=== PATIENT | female | born 2000 | race Caucasian/White ===

== ENCOUNTER 2021-07-16 09:30 | Emergency (ER) | payer OTHER, MEDICAID, SELFPAY ==
[2021-07-16] VITALS (8 sets, daily range): BP systolic 130–140; BP diastolic 76–88; PULSE 68–81; RESP 15–19; TEMP 36.4; O2SAT 100; BMI 19.5
--- NOTE | 2021-07-16 09:37 | ED_ITS ---
HPI - Nausea/Vomiting/Diarrhea General Chief complaint: Nausea/Vomiting/Diarrhea Stated complaint: vomiting, weakness x 3 days. found out Time Seen by Provider: 07/16/21 09:36 History of Present Illness HPI Narrative: 20-year-old female daily smoker without chronic medical problems presents with persistent nausea and vomiting and now some cramping abdominal pain since yesterday. She denies any new medications or dietary change. Her last period was about 1 month ago and yesterday she took a home test which was positive. She is a at possibly 4 weeks. She denies any vaginal bleeding, discharge or leakage of fluid. She denies any dysuria, frequency or urgency. She states that motion and vomiting seem to worsen her discomfort. The vomiting started prior to the discomfort. Related Data Previous Rx's Medication Instructions Recorded ondansetron 4 mg disintegrating 4 mg PO TID-QID PRN #20 tab 07/16/21 tablet prenat.vits,ronen,[id number] 1 tab PO DAILY #30 tab 07/16/21 Allergies Allergy/AdvReac Type Severity Reaction Status Date / Time amoxicillin Allergy Intermediate Verified 07/16/21 09:44 Penicillins Allergy Intermediate Verified 07/16/21 09:44 Review of Systems Review of Systems Narrative: GENERAL: See HPI HEENT: Denies sinus pain, ear pain, sore throat, difficulty swallowing, dizziness. RESPIRATORY: Denies dyspnea, cough, wheezing, hemoptysis, sputum. CARDIOVASCULAR: Denies chest pain, palpitations, orthopnea, edema, GASTROINTESTINAL: See HPI : Denies dysuria, frequency, incontinence, hematuria, urinary retention. MUSCULOSKELETAL: denies weakness, joint pain, or bony pain SKIN: Denies rash, skin lesions, or other NEUROLOGIC: Denies weakness, headache, numbness, change in speech, confusion, seizures, incoordination. PSYCHIATRIC: No concerning psychosocial issues. 12 point review of systems is negative except for those stated above Patient History Social History Smoking Status: Current every day smoker Smoking Status: Current every day smoker Exam Narrative Exam Narrative: GENERAL: [20 year old patient appears stated age. Well-developed patient, in mild distress. Holding an emesis bag HEAD: Atraumatic. Normocephalic. EYES: Pupils equal round and reactive. Extraocular motions intact. No scleral icterus. No injection or drainage. ENT: Nose without bleeding, purulent drainage. Throat without erythema, tonsillar hypertrophy or exudate. Airway patent. NECK: Trachea midline. Non tender CARDIOVASCULAR: Regular rate and rhythm without murmurs, gallops, or rubs. RESPIRATORY: Clear to auscultation. Breath sounds equal bilaterally. No wheezes, rales, or rhonchi. GASTROINTESTINAL: Abdomen soft, and generally tender, nondistended. Bowel sounds present EXTREMITIES: No edema or joint tenderness. BACK: Nontender without deformity or crepitance. No flank tenderness. NEURO: AOx3. SKIN: No rash or erythema of visible areas Initial Vital Signs Initial Vital Signs: Vital Signs Temperature 97.6 F 07/16/21 09:39 Pulse Rate 71 07/16/21 09:39 Respiratory Rate 15 07/16/21 09:39 Blood Pressure 140/88 07/16/21 09:39 Pulse Oximetry 100 07/16/21 09:39 Course Orders Ordered: ED Orders 07/16/21 10:15 Urine Microscopic Stat Discontinued Medications Sodium Chloride (Normal Saline 0.9%) 1,000 mls @ 1,000 mls/hr IV BOLUS ONE Stop: 07/16/21 10:42 Last Infusion: 07/16/21 11:52 Dose: 0 mls/hr Documented by: Admin: 07/16/21 10:30 Dose: 1,000 mls/hr Documented by: ANDERS Ondansetron HCl (Ondansetron 4 Mg/2 Ml Inj) 4 mg IV NOW ONE Stop: 07/16/21 09:44 Last Admin: 07/16/21 10:29 Dose: 4 mg Documented by: ANDERS Pantoprazole Sodium (Pantoprazole 40 Mg Vial) 40 mg IV NOW ONE Stop: 07/16/21 09:44 Last Admin: 07/16/21 10:27 Dose: 40 mg Documented by: ANDERS Vital Signs Vital signs: Vital Signs - 8 hr 07/16/21 11:30 07/16/21 11:44 Pulse Rate 81 Blood Pressure 130/85 Pulse Oximetry 100 MDM - Nausea/Vomiting/Diarrhea Lab Data Result diagrams: 07/16/21 10:07 07/16/21 10:07 Labs: Lab Results 07/16/21 07/16/21 07/16/21 Range/Units 10:07 10:07 10:15 WBC 18.9 H (4.5-11.0) X10^3/uL RBC 4.44 (4.0-5.2) X10^6/uL Hgb 13.5 (12.0-16.0) g/dL Hct 40.2 (36-46) % MCV 90.6 (80-100) fL MCH 30.4 (26-34) PG MCHC 33.6 (30-36) % RDW 13.0 (11.6-14.8) % Plt Count 449 H (150-400) X10^3/uL Neut % (Auto) 90.8 H (50-75) % Lymph % (Auto) 5.6 L (25-40) % [place] % (Auto) 3.2 (3-14) % Eos % (Auto) 0.1 L (2-4) % Baso % (Auto) 0.3 (0-2) % Neut # (Auto) 48862 H (1668-9725) /uL Lymph # (Auto) 1100 (0213-2151) /uL [place] # (Auto) 600 (0-900) /uL Eos # (Auto) 0 (0-450) /uL Baso # (Auto) 100 (0-100) /uL Sodium 135 L (137-145) mmol/L Potassium 3.7 (3.4-5.1) mmol/L Chloride 103 (98-107) mmol/L Carbon Dioxide 23 (22-32) mmol/L BUN 13 (7-17) mg/dL Creatinine 0.58 (0.52-1.04) mg/dL Estimated GFR > 60.0 (>60) mL/min BUN/Creatinine Ratio 22.4 H (6-22) Glucose 125 H (70-100) mg/dL Calcium 10.1 (8.4-10.2) mg/dL Magnesium 1.7 (1.6-2.3) mg/dL Total Bilirubin 1.1 (0.2-1.3) mg/dL AST 29 (14-36) IU/L ALT 17 (<35) IU/L Alkaline Phosphatase 75 (38-126) U/L Total Protein 8.1 (6.3-8.2) g/dL Albumin 5.1 H (3.5-5.0) g/dL Globulin 3.0 (1.7-4.1) g/dL Albumin/Globulin Ratio 1.7 (1.0-2.8) HCG, Quant 47.7 mIU/mL Urine RBC None seen (0-5/HPF) Urine WBC None seen (0-5/HPF) Amorphous Sediment 3+ Urine Bacteria None seen (None) Ur Culture Indicated? Cult not indicated Ketones 0.36 H (<0.27) mmol/L Point of Care Testing Test Results Positive Urine Dip Bedside Urine Glucose Negative Bedside Urine Bilirubin ++ 2 Bedside Urine Ketone - Negative Urine Specific [place] 1.01 Bedside Urine Occult Blood - Negative Bedside Urine pH 9.0 Bedside Urine Protein + 30 Bedside Urine Urobilinogen - Negative Bedside Urine Nitrite - Negative Bedside Urine Leukocytes - Negative Esterase MDM Narrative Medical decision making narrative: Patient with nausea, vomiting and abdominal pain that started yesterday. She is newly diagnosed as and had similar symptoms during her prior . Her abdomen is soft and nontender. Discomfort started after vomiting. She has a complete resolution of symptoms after above-stated therapies. Elevated white blood cells likely a stress response from vomiting. Urine is clear no need for antibiotics. Her vomiting is under control, pain has disappeared and she is tolerating orals. Return precautions given and questions answered to her apparent satisfaction Discharge Plan Departure Patient Disposition: Home Clinical Impression: Hyperemesis gravidarum Instructions: DI for Hyperemesis Gravidarum Activity Restrictions/Additional Instructions: *You have been diagnosed with [hyperemesis gravidarum. Your history and physical exam are very reassuring as is your response to hydration and medications *What to do: *Please continue to take your regular medications as directed. [x ] New medication prescriptions sent to your pharmacy: [[facility] ] [ ] New medication written as a paper prescription [ ] No new medications given *Please follow up with your primary care provider in 2-3 days, call for an appointment. Let them know you were seen in the Emergency Department and that we ask that you be seen in follow up. We will electronically transmit a record of today's note if your PCP is in our system *If you do not have a primary care provider please contact the [facility] Resource line at [phone]. They will ask some questions about your medical history and help get you set up with a doctor in the community. *Return to Emergency Department if you should have any new, worsening or concerning symptoms, such as [fever greater than 101 F, shaking chills, worsening pain, persistent vomiting or other bothersome symptoms] Prescriptions: New ondansetron 4 mg tablet,disintegrating 4 mg PO TID-QID PRN (Reason: nausea and vomiting) Qty: 20 0RF prenat.vits,ronen,[id number] Tablet 1 tab PO DAILY Qty: 30 0RF Referrals: Dar Salomon MD [Primary Care Provider] -
[2021-07-16 10:18] LABS: Add Manual Diff / Slide Review NO; Basophils Absolute Auto 100 /uL (0-100); Basophils Percent Auto 0.3 % (0-2); Eosinophils Absolute Auto 0 /uL (0-450); Eosinophils Percent Auto 0.1 % (2-4); Hematocrit 40.2 % (36-46); Hemoglobin 13.5 g/dL (12.0-16.0); Lymphocytes Absolute Auto 1100 /uL (1100-4500); Lymphocytes Percent Auto 5.6 % (25-40); Mean Corpuscular HGB Conc 33.6 % (30-36); Mean Corpuscular Hemoglobin 30.4 PG (26-34); Mean Corpuscular Volume 90.6 fL (80-100); Monocytes Absolute Auto 600 /uL (0-900); Monocytes Percent Auto 3.2 % (3-14); Neutrophils Absolute Auto 17200 /uL (1500-7000); Neutrophils Percent Auto 90.8 % (50-75); Platelet Count 449 X10^3/uL (150-400); Red Blood Cell Count 4.44 X10^6/uL (4.0-5.2); White Blood Cell Count 18.9 X10^3/uL (4.5-11.0)
[2021-07-16] MEDS: PANTOPRAZOLE 40 MG VIAL IV (10:27)
[2021-07-16] MEDS: ONDANSETRON 4 MG/2 ML INJ IV (10:29)
[2021-07-16 10:30] LABS: Alanine Aminotransferase 17 IU/L (<35); Albumin 5.1 g/dL (3.5-5.0); Albumin Globulin Ratio 1.7 (1.0-2.8); Alkaline Phosphatase 75 U/L (38-126); Aspartate Aminotransferase 29 IU/L (14-36); BUN Creatinine Ratio 22.4 (6-22); Bilirubin Total 1.1 mg/dL (0.2-1.3); Blood Urea Nitrogen 13 mg/dL (7-17); Calcium 10.1 mg/dL (8.4-10.2); Carbon Dioxide 23 mmol/L (22-32); Chloride 103 mmol/L (98-107); Estimated Glomerular Filt Rate > 60.0 mL/min (>60); Glucose 125 mg/dL (70-100); HEMOLYSIS < 15 (0-50); Magnesium 1.7 mg/dL (1.6-2.3); Potassium 3.7 mmol/L (3.4-5.1); Sodium 135 mmol/L (137-145); Total Protein 8.1 g/dL (6.3-8.2)
[2021-07-16] MEDS: SODIUM CHLORIDE 0.9% 1,000 ML 1000 ML IV (10:30)
[2021-07-16 10:32] LABS: Ketones (Beta-Hydroxybutyrate) 0.36 mmol/L (<0.27)
[2021-07-16 10:51] LABS: Amorphous Sediment Urine 3+; Bacteria Urine None Seen; Culture Indicated Urine Cult Not Indicated; RBC Urine None Seen (0-5/HPF); WBC Urine None Seen (0-5/HPF)
[2021-07-16 11:30] LABS: HCG Quantitative /Beta subunit 47.7 mIU/mL
== END 2021-07-16 11:58 | disposition home or self-care (01) ==
PROVIDERS: Emergency Provider Emergency Medicine; PCP Family Medicine
DX: O21.0 Mild hyperemesis gravidarum (principal); O99.331 Smoking (tobacco) complicating pregnancy, first trimester; F17.200 Nicotine dependence, unspecified, uncomplicated; Z3A.00 Weeks of gestation of pregnancy not specified
CPT/HCPCS: 36415; 80053; 81003; 81015; 81025; 82009; 83735; 84702; 85025; 96361; 96374; 96375; 99284; C9113; J2405

== ENCOUNTER 2021-07-18 10:53 | Emergency (ER) | payer OTHER, MEDICAID, SELFPAY ==
[2021-07-18 11:07] VITALS: BP 134/95; PULSE 78; RESP 16; TEMP 36.4; O2SAT 98; BMI 18.3
[2021-07-18] MEDS: ONDANSETRON 4 MG/2 ML INJ IV (11:41)
[2021-07-18] MEDS: SODIUM CHLORIDE 0.9% 1,000 ML 1000 ML IV (11:42)
[2021-07-18 11:46] LABS: Add Manual Diff / Slide Review NO; Basophils Absolute Auto 0 /uL (0-100); Basophils Percent Auto 0.3 % (0-2); Eosinophils Absolute Auto 0 /uL (0-450); Eosinophils Percent Auto 0.1 % (2-4); Hematocrit 37.6 % (36-46); Hemoglobin 12.9 g/dL (12.0-16.0); Lymphocytes Absolute Auto 1000 /uL (1100-4500); Lymphocytes Percent Auto 7.1 % (25-40); Mean Corpuscular HGB Conc 34.2 % (30-36); Mean Corpuscular Hemoglobin 31.1 PG (26-34); Mean Corpuscular Volume 90.9 fL (80-100); Monocytes Absolute Auto 700 /uL (0-900); Monocytes Percent Auto 4.8 % (3-14); Neutrophils Absolute Auto 12800 /uL (1500-7000); Neutrophils Percent Auto 87.7 % (50-75); Platelet Count 426 X10^3/uL (150-400); Red Blood Cell Count 4.14 X10^6/uL (4.0-5.2); Red Cell Distribution Width 13.2 % (11.6-14.8); White Blood Cell Count 14.6 X10^3/uL (4.5-11.0)
[2021-07-18 11:52] LABS: Amorphous Sediment Urine 3+; Bacteria Urine None Seen; Culture Indicated Urine Cult Not Indicated; RBC Urine None Seen (0-5/HPF); Squamous Epithelial Cell Urine 1-5 /HPF (0-5/HPF); WBC Urine None Seen (0-5/HPF)
[2021-07-18 12:02] LABS: BUN Creatinine Ratio 16.4 (6-22); Blood Urea Nitrogen 9 mg/dL (7-17); Calcium 9.3 mg/dL (8.4-10.2); Carbon Dioxide 23 mmol/L (22-32); Chloride 105 mmol/L (98-107); Estimated Glomerular Filt Rate > 60.0 mL/min (>60); Glucose 107 mg/dL (70-100); HEMOLYSIS < 15 (0-50); Potassium 3.5 mmol/L (3.4-5.1); Sodium 135 mmol/L (137-145)
--- NOTE | 2021-07-18 12:18 | DI.US.S_ITS ---
PROCEDURE: US ABDOMEN LIMITED INDICATIONS: RUQ AND RLQ PAIN TECHNIQUE: Real-time focused scanning was performed of the abdomen, with image documentation. COMPARISON: None. FINDINGS: Liver is normal in size and homogeneous echotexture. Gallbladder is sonographically normal. No gallstones. Gallbladder wall measures 1.1 millimeters. No pericholecystic fluid. No sonographic Rutherford sign. Biliary tree is nondilated. Common bile duct measures 1.5 millimeters. Pancreas is sonographically normal. Appendix is not visualized and cannot be evaluated. IMPRESSION: 1. No sonographic evidence of cholelithiasis or cholecystitis. 2. Appendix not visualized and cannot be evaluated. Dictated by: Cheli Moraes MD, PhD on 07/18/2021 at 12:54 Approved by: Cheli Moraes MD, PhD on 07/18/2021 at 12:56
[2021-07-18] MEDS: METOCLOPRAMIDE 10 MG/2 ML INJ IV (12:29)
--- NOTE | 2021-07-18 12:34 | PC.NURSE ---
LMP 06/16/21, hyperemesis since finding out. Has been vomiting for last 10hrs, unable to keep anything down. Third and had similar situations with other .
--- NOTE | 2021-07-18 12:36 | ED_ITS ---
HPI - Nausea/Vomiting/Diarrhea <Gray Evans PA-C - Last Filed: 07/18/21 20:04> General Chief complaint: Nausea/Vomiting/Diarrhea Stated complaint: HG , CONSTANT VOMITING Time Seen by Provider: 07/18/21 12:00 Source: patient Mode of arrival: Ambulatory History of Present Illness HPI Narrative: Patient is a 20-year-old female presenting to the emergency department today for evaluation of nausea and vomiting. Patient states that she is experienced ?nonstop vomiting? for the last 6 hours. She states she has been experiencing intermittent episodes of nausea and vomiting over the past week, but she notes that she has experienced increased lightheadedness and dizziness with her current episodes of emesis. She reports associated chest pain, abdominal pain, shortness of breath, cough, and chills. Patient was seen in the emergency department on to 02/06/22 for similar symptom and was discharged home following resolution of her nausea and vomiting. He was administered IV normal saline, 4 mg of Zofran, and 40 mg Protonix. Patient denies fever, constipation, diarrhea, hematemesis, hematochezia, dysuria, hematuria, vaginal bleeding, or any other concerning symptoms. No further concerns were voiced at this time. Related Data Previous Rx's Medication Instructions Recorded ondansetron 4 mg disintegrating 4 mg PO TID-QID PRN #20 tab 07/16/21 tablet prenat.vits,ronen,[id number] 1 tab PO DAILY #30 tab 07/16/21 metoclopramide HCl 10 mg tablet 10 mg PO Q6H PRN #30 tab 07/18/21 (Reglan) Allergies Allergy/AdvReac Type Severity Reaction Status Date / Time amoxicillin Allergy Intermediate Verified 07/18/21 11:10 Penicillins Allergy Intermediate Verified 07/18/21 11:10 Review of Systems <Gray Evans PA-C - Last Filed: 07/18/21 20:04> Constitutional Constitutional: Denies chills, Denies fatigue, Denies fever(s), Denies frequent falls, Denies lethargy and Denies weakness Eyes Eyes: Denies loss of vision ENT Ears, Nose, Mouth, and Throat: Reports dizziness and Denies neck pain Cardiovascular Cardiovascular: Reports chest pain, Denies irregular heart rhythm, Denies lightheadedness, Denies palpitations, Reports dyspnea, Denies dyspnea on exertion and Denies orthopnea Respiratory Respiratory: Reports cough, Reports dyspnea, Denies dyspnea on exertion and Denies wheezing Gastrointestinal Gastrointestinal: Reports abdominal pain, Denies change in bowel habits, Denies constipation, Denies diarrhea, Reports nausea, Reports vomiting and Denies hematemesis Genitourinary Genitourinary: Denies hematuria, Denies flank pain, Denies urinary incontinence and Denies urinary urgency Musculoskeletal Musculoskeletal: Denies back pain, Denies muscle weakness, Denies neck pain, Denies numbness and Denies tingling Integumentary/Breasts Skin/Breast: Denies pruritus, Denies erythema, Denies rash and Denies wounds Neurologic Neurologic: Denies behavioral changes, Denies confusion, Reports dizziness, Denies frequent falls, Denies loss of vision, Denies numbness, Denies tingling and Denies weakness Psychiatric Psychiatric: Denies behavioral changes and Denies confusion Endocrine Endocrine: Denies fatigue and Denies palpitations Allergic/Immunologic Allergic/Immunologic: Denies wheezing Patient History <Gray Evans PA-C - Last Filed: 07/18/21 20:04> Social History Smoking Status: Former smoker Smoking Status: Former smoker alcohol intake frequency: holidays/special occasions only Substance Use Type: marijuana Exam <Gray Evans PA-C - Last Filed: 07/18/21 20:04> Narrative Exam Narrative: GENERAL: 20 year old patient appears stated age. Well-developed patient, in mild distress. Active chills and trembling on exam. HEAD: Atraumatic. Normocephalic. EYES: Pupils equal round and reactive. Extraocular motions intact. No scleral icterus. No injection or drainage. ENT: Nose without bleeding, purulent drainage. Throat without erythema, tonsillar hypertrophy or exudate. Airway patent. NECK: Trachea midline. Non tender CARDIOVASCULAR: Regular rate and rhythm without murmurs, gallops, or rubs. RESPIRATORY: Clear to auscultation. Breath sounds equal bilaterally. No wheezes, rales, or rhonchi. GASTROINTESTINAL: Abdomen soft, nondistended. Tenderness to palpation noted throughout all 4 quadrants of the abdomen. No pulsatile masses noted. EXTREMITIES: No edema or joint tenderness. BACK: Nontender without deformity or crepitance. No flank tenderness. NEURO: AOx3. SKIN: No rash or erythema of visible areas Initial Vital Signs Initial Vital Signs: Vital Signs Temperature 97.6 F 07/18/21 11:07 Pulse Rate 78 07/18/21 11:07 Respiratory Rate 16 07/18/21 11:07 Blood Pressure 134/95 H 07/18/21 11:07 Pulse Oximetry 98 07/18/21 11:07 <Shaye Garcia DO - Last Filed: 07/19/21 07:00> Initial Vital Signs Initial Vital Signs: Vital Signs Temperature 97.6 F 07/18/21 11:07 Pulse Rate 78 07/18/21 11:07 Respiratory Rate 16 07/18/21 11:07 Blood Pressure 134/95 H 07/18/21 11:07 Pulse Oximetry 98 07/18/21 11:07 Course <Gray Evans PA-C - Last Filed: 07/18/21 20:04> Course Course Narrative: CBC, CMP, urine micro, abdominal ultrasound obtained. IV normal saline bolus 1000 mL, IV 4 mg Zofran, IV 10 mg Reglan administered. Patient states that she is feeling much better after IV fluids, Zofran, and Reglan. She is requesting be discharged from the hospital. Orders Ordered: Discontinued Medications Sodium Chloride (Normal Saline 0.9%) 1,000 mls @ 1,000 mls/hr IV BOLUS ONE Stop: 07/18/21 12:12 Last Infusion: 07/18/21 12:35 Dose: 0 mls/hr Documented by: Admin: 07/18/21 11:42 Dose: 1,000 mls/hr Documented by: SEGUN Metoclopramide HCl (Metoclopramide 10 Mg/2 Ml Inj) 10 mg IV NOW ONE Stop: 07/18/21 12:17 Last Admin: 07/18/21 12:29 Dose: 10 mg Documented by: SEGUN Ondansetron HCl (Ondansetron 4 Mg/2 Ml Inj) 4 mg IV NOW ONE Stop: 07/18/21 11:13 Last Admin: 07/18/21 11:41 Dose: 4 mg Documented by: SEGUN Vital Signs Vital signs: Vital Signs - 8 hr 07/18/21 13:19 Pulse Rate 73 Respiratory Rate 18 Blood Pressure 134/80 Pulse Oximetry 100 <Shaye Garcia DO - Last Filed: 07/19/21 07:00> Orders Ordered: Discontinued Medications Sodium Chloride (Normal Saline 0.9%) 1,000 mls @ 1,000 mls/hr IV BOLUS ONE Stop: 07/18/21 12:12 Last Infusion: 07/18/21 12:35 Dose: 0 mls/hr Documented by: Admin: 07/18/21 11:42 Dose: 1,000 mls/hr Documented by: SEGUN Metoclopramide HCl (Metoclopramide 10 Mg/2 Ml Inj) 10 mg IV NOW ONE Stop: 07/18/21 12:17 Last Admin: 07/18/21 12:29 Dose: 10 mg Documented by: SEGUN Ondansetron HCl (Ondansetron 4 Mg/2 Ml Inj) 4 mg IV NOW ONE Stop: 07/18/21 11:13 Last Admin: 07/18/21 11:41 Dose: 4 mg Documented by: SEGUN Vital Signs Vital signs: Vital Signs - 8 hr 07/18/21 13:19 Pulse Rate 73 Respiratory Rate 18 Blood Pressure 134/80 Pulse Oximetry 100 MDM - Nausea/Vomiting/Diarrhea <Gray Evans PA-C - Last Filed: 07/18/21 20:04> Lab Data Result diagrams: 07/18/21 11:36 07/18/21 11:36 Labs: Lab Results 07/18/21 07/18/21 07/18/21 Range/Units 11:36 11:36 11:36 WBC 14.6 H (4.5-11.0) X10^3/uL RBC 4.14 (4.0-5.2) X10^6/uL Hgb 12.9 (12.0-16.0) g/dL Hct 37.6 (36-46) % MCV 90.9 (80-100) fL MCH 31.1 (26-34) PG MCHC 34.2 (30-36) % RDW 13.2 (11.6-14.8) % Plt Count 426 H (150-400) X10^3/uL Neut % (Auto) 87.7 H (50-75) % Lymph % (Auto) 7.1 L (25-40) % [place] % (Auto) 4.8 (3-14) % Eos % (Auto) 0.1 L (2-4) % Baso % (Auto) 0.3 (0-2) % Neut # (Auto) 72672 H (6159-0068) /uL Lymph # (Auto) 1000 L (1954-0550) /uL [place] # (Auto) 700 (0-900) /uL Eos # (Auto) 0 (0-450) /uL Baso # (Auto) 0 (0-100) /uL Sodium 135 L (137-145) mmol/L Potassium 3.5 (3.4-5.1) mmol/L Chloride 105 (98-107) mmol/L Carbon Dioxide 23 (22-32) mmol/L BUN 9 (7-17) mg/dL Creatinine 0.55 (0.52-1.04) mg/dL Estimated GFR > 60.0 (>60) mL/min BUN/Creatinine Ratio 16.4 (6-22) Glucose 107 H (70-100) mg/dL Calcium 9.3 (8.4-10.2) mg/dL Urine RBC None seen (0-5/HPF) Urine WBC None seen (0-5/HPF) Ur Squamous Epith Cells 1-5 /hpf (0-5/HPF) Amorphous Sediment 3+ Urine Bacteria None seen (None) Ur Culture Indicated? Cult not indicated Point of Care Testing Test Results Positive Urine Dip Bedside Urine Glucose Negative Bedside Urine Bilirubin - Negative Bedside Urine Ketone +++ 80 Urine Specific [place] 1.015 Bedside Urine Occult Blood - Negative Bedside Urine pH 7.5 Bedside Urine Protein +/- 15 Bedside Urine Urobilinogen - Negative Bedside Urine Nitrite - Negative Bedside Urine Leukocytes - Negative Esterase Imaging Data US - abdomen: Radiologist's Impression: PROCEDURE: US ABDOMEN LIMITED ? INDICATIONS:? RUQ AND RLQ PAIN ? TECHNIQUE:? Real-time focused scanning was performed of the abdomen, with image documentation.? ? COMPARISON:? None. ? FINDINGS:? ? Liver is normal in size and homogeneous echotexture. ? Gallbladder is sonographically normal.? No gallstones.? Gallbladder wall measures 1.1 millimeters.? No pericholecystic fluid.? No sonographic Rutherford sign. ? Biliary tree is nondilated.? Common bile duct measures 1.5 millimeters. ? Pancreas is sonographically normal. ? Appendix is not visualized and cannot be evaluated. ? IMPRESSION:? ? 1. No sonographic evidence of cholelithiasis or cholecystitis. ? 2. Appendix not visualized and cannot be evaluated.? ? ? Dictated by: Cheli Moraes MD, PhD on 07/18/2021 at 12:54 ? ? Approved by: Cheli Moraes MD, PhD on 07/18/2021 at 12:56 ? MDM Narrative Medical decision making narrative: To consider hyperemesis gravidarum versus cholelithiasis versus choledocholithiasis versus acute cholangitis versus cholecystitis versus appendicitis. Overall, physical examination and history are reassuring. Discussed results of abdominal ultrasound patient informed her that no acute abnormality was identified. Psoas sign, obturator's sign both negative on exam. Patient did not have any rebound tenderness in McBurney's point. Patient states at this time she feels comfortable being discharged home. Strict return precautions were discussed with the patient prior to discharge. At this time patient is stable and ready for discharge. <Shaye Garcia, DO - Last Filed: 07/19/21 07:00> Lab Data Labs: Lab Results 07/18/21 07/18/21 07/18/21 Range/Units 11:36 11:36 11:36 WBC 14.6 H (4.5-11.0) X10^3/uL RBC 4.14 (4.0-5.2) X10^6/uL Hgb 12.9 (12.0-16.0) g/dL Hct 37.6 (36-46) % MCV 90.9 (80-100) fL MCH 31.1 (26-34) PG MCHC 34.2 (30-36) % RDW 13.2 (11.6-14.8) % Plt Count 426 H (150-400) X10^3/uL Neut % (Auto) 87.7 H (50-75) % Lymph % (Auto) 7.1 L (25-40) % [place] % (Auto) 4.8 (3-14) % Eos % (Auto) 0.1 L (2-4) % Baso % (Auto) 0.3 (0-2) % Neut # (Auto) 88700 H (4616-5788) /uL Lymph # (Auto) 1000 L (4503-2470) /uL [place] # (Auto) 700 (0-900) /uL Eos # (Auto) 0 (0-450) /uL Baso # (Auto) 0 (0-100) /uL Sodium 135 L (137-145) mmol/L Potassium 3.5 (3.4-5.1) mmol/L Chloride 105 (98-107) mmol/L Carbon Dioxide 23 (22-32) mmol/L BUN 9 (7-17) mg/dL Creatinine 0.55 (0.52-1.04) mg/dL Estimated GFR > 60.0 (>60) mL/min BUN/Creatinine Ratio 16.4 (6-22) Glucose 107 H (70-100) mg/dL Calcium 9.3 (8.4-10.2) mg/dL Urine RBC None seen (0-5/HPF) Urine WBC None seen (0-5/HPF) Ur Squamous Epith Cells 1-5 /hpf (0-5/HPF) Amorphous Sediment 3+ Urine Bacteria None seen (None) Ur Culture Indicated? Cult not indicated Point of Care Testing Test Results Positive Urine Dip Bedside Urine Glucose Negative Bedside Urine Bilirubin - Negative Bedside Urine Ketone +++ 80 Urine Specific [place] 1.015 Bedside Urine Occult Blood - Negative Bedside Urine pH 7.5 Bedside Urine Protein +/- 15 Bedside Urine Urobilinogen - Negative Bedside Urine Nitrite - Negative Bedside Urine Leukocytes - Negative Esterase Discharge Plan Departure Patient Disposition: Home Clinical Impression: Hyperemesis gravidarum Instructions: DI for Hyperemesis Gravidarum Activity Restrictions/Additional Instructions: *You have been diagnosed with hyperemesis gravidarum *What to do: *Please continue to take your regular medications as directed. [X] New medication prescriptions sent to your pharmacy: [facility] - Reglan [ ] New medication written as a paper prescription [ ] No new medications given Physical examination and ultrasound imaging obtained in the emergency department day were overall reassuring. Although your appendix was not visualized on ultrasound imaging the physical examination did not show any signs of appendicitis. I have prescribed you a course of Reglan to help alleviate your nausea and vomiting. This medication can be taken with Zofran as needed for nausea. I recommend following up with the primary care provider within the next 2-3 days for further evaluation. Do not hesitate to return to the emergency department if you experience worsening abdominal pain, intractable vomiting, fever, or any other concerning symptoms. *Please follow up with your primary care provider in 2-3 days, call for an appointment. Let them know you were seen in the Emergency Department and that we ask that you be seen in follow up. We will electronically transmit a record of today's note if your PCP is in our system *If you do not have a primary care provider please contact the [facility] Resource line at [phone]. They will ask some questions about your medical history and help get you set up with a doctor in the community. *Return to Emergency Department if you should have any new, worsening or concerning symptoms, such as fever greater than 101 F, shaking chills, worsening pain, persistent vomiting or other bothersome symptoms. Prescriptions: New metoclopramide HCl [Reglan] 10 mg tablet 10 mg PO Q6H PRN (Reason: nausea and vomiting) Qty: 30 0RF No Action ondansetron 4 mg tablet,disintegrating 4 mg PO TID-QID PRN (Reason: nausea and vomiting) Qty: 20 0RF prenat.vits,ronen,[id number] Tablet 1 tab PO DAILY Qty: 30 0RF Referrals: Dar Salomon MD [Primary Care Provider] - <Shaye Garcia DO - Last Filed: 07/19/21 07:00> Cosign ED Attending Óscarature Attestation: I was immediately available in the department for consultation. Documentation has been reviewed. I agree with assessment and plan.
[2021-07-18 13:19] VITALS: BP 134/80; PULSE 73; RESP 18; O2SAT 100
== END 2021-07-18 13:22 | disposition home or self-care (01) ==
PROVIDERS: Emergency Medicine; Emergency Provider Physician Assistant; PCP Family Medicine
DX: O21.0 Mild hyperemesis gravidarum (principal)
CPT/HCPCS: 36415; 76705; 80048; 81003; 81015; 81025; 85025; 96361; 96374; 96375; 99284; J2405; J2765

== ENCOUNTER 2021-08-15 16:43 | Emergency (ER) | payer OTHER, MEDICAID, SELFPAY ==
[2021-08-15 17:20] VITALS: BP 111/59; PULSE 73; RESP 17; TEMP 36.6; O2SAT 100; BMI 17.2
--- NOTE | 2021-08-15 17:24 | DI.US.S_ITS ---
PROCEDURE: US OB <= 14 WEEKS FETUS INDICATIONS: , BLEEDING OUTSIDE/PRIOR DATING DATA: Last menstrual period (LMP): June 16, 2021 LMP-based estimated date of delivery (BERNARDA): March 23, 2022. First dating scan (date and location): August 15, 2021. Estimated date of delivery (BERNARDA) from first dating scan: March 25, 2022. TECHNIQUE: Real-time scanning was performed of the fetus and maternal pelvic organs, with image documentation. Endovaginal scanning was also performed to better visualize the fetus and maternal ovaries. COMPARISON: None. FINDINGS: Embryo: There is a single living intrauterine gestation with estimated sonographic gestational age of approximately 8 weeks and 2 days based off crown-rump length measurement of 1.8 cm. A yolk sac is seen. There is a prominent heterogeneous area measuring 3.1 x 2.2 x 2.8 cm with more peripheral anechoic region measuring 0.9 cm visualized near the right uterus. Heart rate: 169 beats per minute Maternal organs: Ovaries unremarkable with probable left corpus luteal cyst.. IMPRESSION: 1. Single living intrauterine gestation with estimated sonographic gestational age of approximately 8 weeks and 2 days based off crown-rump length measurement. Estimated dated delivery is approximately March 25, 2022. 2. Prominent heterogeneous collection measuring 3.1 x 2.2 x 2.8 cm with adjacent anechoic region measuring 0.9 cm near the right side of the uterus. This may represent a prominent perigestational hemorrhage. Recommend continued close clinical surveillance with repeat imaging as needed. We strive to produce accurate, complete, and clear reports of imaging services. To assist us in improving patient care, this report was composed using standard report templates and voice recognition software. Therefore, it may contain abnormal punctuation, insertions and/or omissions. Occasional wrong-word or sound-alike substitutions may occur. Though we review the report and make efforts to correct it, we do recommend that the report be read carefully in proper context to recognize any text inaccuracies. Dictated by: Glen Noguera M.D. on 08/15/2021 at 19:11 Approved by: Glen Noguera M.D. on 08/15/2021 at 19:16
[2021-08-15 17:45] LABS: Add Manual Diff / Slide Review NO; Basophils Absolute Auto 100 /uL (0-100); Basophils Percent Auto 0.4 % (0-2); Eosinophils Absolute Auto 200 /uL (0-450); Eosinophils Percent Auto 0.8 % (2-4); Hematocrit 34.5 % (36-46); Hemoglobin 11.8 g/dL (12.0-16.0); Lymphocytes Absolute Auto 2000 /uL (1100-4500); Lymphocytes Percent Auto 9.4 % (25-40); Mean Corpuscular HGB Conc 34.2 % (30-36); Mean Corpuscular Hemoglobin 31.2 PG (26-34); Mean Corpuscular Volume 91.2 fL (80-100); Monocytes Absolute Auto 1200 /uL (0-900); Monocytes Percent Auto 5.9 % (3-14); Neutrophils Absolute Auto 17700 /uL (1500-7000); Neutrophils Percent Auto 83.5 % (50-75); Platelet Count 437 X10^3/uL (150-400); Red Blood Cell Count 3.78 X10^6/uL (4.0-5.2); Red Cell Distribution Width 13.3 % (11.6-14.8); White Blood Cell Count 21.1 X10^3/uL (4.5-11.0)
[2021-08-15 17:56] LABS: Alanine Aminotransferase 12 IU/L (<35); Albumin 4.6 g/dL (3.5-5.0); Albumin Globulin Ratio 1.6 (1.0-2.8); Alkaline Phosphatase 54 U/L (38-126); Aspartate Aminotransferase 22 IU/L (14-36); BUN Creatinine Ratio 19.5 (6-22); Bilirubin Total 0.5 mg/dL (0.2-1.3); Blood Urea Nitrogen 8 mg/dL (7-17); Calcium 8.9 mg/dL (8.4-10.2); Carbon Dioxide 25 mmol/L (22-32); Chloride 105 mmol/L (98-107); Estimated Glomerular Filt Rate > 60.0 mL/min (>60); Globulin 2.9 g/dL (1.7-4.1); Glucose 84 mg/dL (70-100); HEMOLYSIS < 15 (0-50); Potassium 3.6 mmol/L (3.4-5.1); Sodium 134 mmol/L (137-145); Total Protein 7.5 g/dL (6.3-8.2)
[2021-08-15 18:20] LABS: Amorphous Sediment Urine 1+; Bacteria Urine None Seen; RBC Urine None Seen (0-5/HPF); Squamous Epithelial Cell Urine 5-10 /HPF (0-5/HPF); WBC Urine None Seen (0-5/HPF)
[2021-08-15 18:36] LABS: HCG Quantitative /Beta subunit 110000 mIU/mL
--- NOTE | 2021-08-15 19:28 | ED.PREGNANCY ---
HPI - General Chief complaint: Vaginal Bleeding Stated complaint: 8Wks Preg/Bleeding and Cramping Time Seen by Provider: 08/15/21 18:47 Source: patient Mode of arrival: Ambulatory History of Present Illness HPI Narrative: 21-year-old female nonsmoker at 9 weeks presents with a chief complaint of minimal cramping and some bright red bleeding vaginally earlier today. She is not having any symptoms currently. She is not dizzy nor weak or lightheaded. She denies any pain nor fever or chills. She has no shortness of breath, cough or runny nose. She has had no dysuria, frequency or urgency. Related Data Previous Rx's Medication Instructions Recorded ondansetron 4 mg disintegrating 4 mg PO TID-QID PRN #20 tab 07/16/21 tablet prenat.vits,ronen,[id number] 1 tab PO DAILY #30 tab 07/16/21 metoclopramide HCl 10 mg tablet 10 mg PO Q6H PRN #30 tab 07/18/21 (Reglan) Allergies Allergy/AdvReac Type Severity Reaction Status Date / Time amoxicillin Allergy Intermediate Verified 08/15/21 17:23 Penicillins Allergy Intermediate Verified 08/15/21 17:23 Review of Systems Review of Systems Narrative: GENERAL: Denies chills, fatigue, malaise, fever, sweats. HEENT: Denies sinus pain, ear pain, sore throat, difficulty swallowing, dizziness. RESPIRATORY: Denies dyspnea, cough, wheezing, hemoptysis, sputum. CARDIOVASCULAR: Denies chest pain, palpitations, orthopnea, edema, GASTROINTESTINAL: Denies nausea, vomiting, abdominal pain, diarrhea, constipation, melena. : See HPI MUSCULOSKELETAL: denies weakness, joint pain, or bony pain SKIN: Denies rash, skin lesions, or other NEUROLOGIC: Denies weakness, headache, numbness, change in speech, confusion, seizures, incoordination. PSYCHIATRIC: No concerning psychosocial issues. 12 point review of systems is negative except for those stated above Exam Narrative Exam Narrative: GENERAL: [21] year old patient appears stated age. Well-developed patient, in mild distress. HEAD: Atraumatic. Normocephalic. EYES: Pupils equal round and reactive. Extraocular motions intact. No scleral icterus. No injection or drainage. ENT: Nose without bleeding, purulent drainage. Throat without erythema, tonsillar hypertrophy or exudate. Airway patent. NECK: Trachea midline. Non tender CARDIOVASCULAR: Regular rate and rhythm without murmurs, gallops, or rubs. RESPIRATORY: Clear to auscultation. Breath sounds equal bilaterally. No wheezes, rales, or rhonchi. GASTROINTESTINAL: Abdomen soft, non-tender, nondistended. EXTREMITIES: No edema or joint tenderness. BACK: Nontender without deformity or crepitance. No flank tenderness. NEURO: AOx3. SKIN: No rash or erythema of visible areas Initial Vital Signs Initial Vital Signs: Vital Signs Temperature 98 F 08/15/21 17:20 Pulse Rate 73 08/15/21 17:20 Respiratory Rate 17 08/15/21 17:20 Blood Pressure 111/59 L 08/15/21 17:20 Pulse Oximetry 100 08/15/21 17:20 Course Orders Ordered: ED Orders 08/15/21 17:24 US OB <= 14 weeks fetus Stat 08/15/21 17:30 ABO RH Type Stat Complete Blood Count AUTO DIFF Stat Comprehensive Metabolic Panel Stat HCG Quantitative /Beta subunit Stat Urine Culture Stat Urine Microscopic Stat Vital Signs Vital signs: Vital Signs - 8 hr 08/15/21 17:20 Temperature 98 F Pulse Rate 73 Respiratory Rate 17 Blood Pressure 111/59 L Pulse Oximetry 100 MDM - OB/Uterine Contractions Lab Data Result diagrams: 08/15/21 17:30 08/15/21 17:30 Labs: Lab Results 08/15/21 08/15/21 08/15/21 Range/Units 17:30 17:30 17:30 WBC 21.1 H (4.5-11.0) X10^3/uL RBC 3.78 L (4.0-5.2) X10^6/uL Hgb 11.8 L (12.0-16.0) g/dL Hct 34.5 L (36-46) % MCV 91.2 (80-100) fL MCH 31.2 (26-34) PG MCHC 34.2 (30-36) % RDW 13.3 (11.6-14.8) % Plt Count 437 H (150-400) X10^3/uL Neut % (Auto) 83.5 H (50-75) % Lymph % (Auto) 9.4 L (25-40) % [place] % (Auto) 5.9 (3-14) % Eos % (Auto) 0.8 L (2-4) % Baso % (Auto) 0.4 (0-2) % Neut # (Auto) 14691 H (3072-4851) /uL Lymph # (Auto) 2000 (6751-9256) /uL [place] # (Auto) 1200 H (0-900) /uL Eos # (Auto) 200 (0-450) /uL Baso # (Auto) 100 (0-100) /uL Sodium 134 L (137-145) mmol/L Potassium 3.6 (3.4-5.1) mmol/L Chloride 105 (98-107) mmol/L Carbon Dioxide 25 (22-32) mmol/L BUN 8 (7-17) mg/dL Creatinine 0.41 L (0.52-1.04) mg/dL Estimated GFR > 60.0 (>60) mL/min BUN/Creatinine Ratio 19.5 (6-22) Glucose 84 (70-100) mg/dL Calcium 8.9 (8.4-10.2) mg/dL Total Bilirubin 0.5 (0.2-1.3) mg/dL AST 22 (14-36) IU/L ALT 12 (<35) IU/L Alkaline Phosphatase 54 (38-126) U/L Total Protein 7.5 (6.3-8.2) g/dL Albumin 4.6 (3.5-5.0) g/dL Globulin 2.9 (1.7-4.1) g/dL Albumin/Globulin Ratio 1.6 (1.0-2.8) HCG, Quant 549091 mIU/mL Urine RBC (0-5/HPF) Urine WBC (0-5/HPF) Ur Squamous Epith Cells (0-5/HPF) Amorphous Sediment Urine Bacteria (None) Ur Culture Indicated? Blood Type O Positive 08/15/21 Range/Units 17:30 WBC (4.5-11.0) X10^3/uL RBC (4.0-5.2) X10^6/uL Hgb (12.0-16.0) g/dL Hct (36-46) % MCV (80-100) fL MCH (26-34) PG MCHC (30-36) % RDW (11.6-14.8) % Plt Count (150-400) X10^3/uL Neut % (Auto) (50-75) % Lymph % (Auto) (25-40) % [place] % (Auto) (3-14) % Eos % (Auto) (2-4) % Baso % (Auto) (0-2) % Neut # (Auto) (4056-9327) /uL Lymph # (Auto) (0335-1896) /uL [place] # (Auto) (0-900) /uL Eos # (Auto) (0-450) /uL Baso # (Auto) (0-100) /uL Sodium (137-145) mmol/L Potassium (3.4-5.1) mmol/L Chloride (98-107) mmol/L Carbon Dioxide (22-32) mmol/L BUN (7-17) mg/dL Creatinine (0.52-1.04) mg/dL Estimated GFR (>60) mL/min BUN/Creatinine Ratio (6-22) Glucose (70-100) mg/dL Calcium (8.4-10.2) mg/dL Total Bilirubin (0.2-1.3) mg/dL AST (14-36) IU/L ALT (<35) IU/L Alkaline Phosphatase (38-126) U/L Total Protein (6.3-8.2) g/dL Albumin (3.5-5.0) g/dL Globulin (1.7-4.1) g/dL Albumin/Globulin Ratio (1.0-2.8) HCG, Quant mIU/mL Urine RBC None seen (0-5/HPF) Urine WBC None seen (0-5/HPF) Ur Squamous Epith Cells 5-10 /hpf H (0-5/HPF) Amorphous Sediment 1+ Urine Bacteria None seen (None) Ur Culture Indicated? Culture not indicate Blood Type Urine Dip Bedside Urine Glucose Negative Bedside Urine Bilirubin - Negative Bedside Urine Ketone +++ 80 Urine Specific [place] 1.020 Bedside Urine Occult Blood + Bedside Urine pH 6 Bedside Urine Protein - Negative Bedside Urine Urobilinogen - Negative Bedside Urine Nitrite - Negative Bedside Urine Leukocytes - Negative Esterase Imaging Data US - OB: Radiologist's Impression: Close Ultrasound (Signed) Glen Noguera - 08/15/21 Abdomen Ultrasound (Signed) Cheli Moraes - 07/18/21 Launch?[address] [address] Ultrasound Report Signed Patient: Idania Peres MR#: [id number] : 2000 Acct:[id number] Age/Sex: 21 / F Date of Service: 08/15/21 Loc: Accession Number: [id number] ?? Procedure: US OB <= 14 weeks fetus Ordering Provider: Shaye Garcia D.O. PROCEDURE:? US OB <= 14 WEEKS FETUS ? INDICATIONS:? , BLEEDING ? OUTSIDE/PRIOR DATING DATA:? Last menstrual period (LMP):? June 16, 2021 LMP-based estimated date of delivery (BERNARDA):? March 23, 2022.? First dating scan (date and location):? August 15, 2021.? Estimated date of delivery (BERNARDA) from first dating scan:? March 25, 2022. TECHNIQUE:? Real-time scanning was performed of the fetus and maternal pelvic organs, with image documentation.? Endovaginal scanning was also performed to better visualize the fetus and maternal ovaries.? ? COMPARISON:? None. ? FINDINGS:? ? Embryo:? There is a single living intrauterine gestation with estimated sonographic gestational age of approximately 8 weeks and 2 days based off crown-rump length measurement of 1.8 cm.? A yolk sac is seen.? There is a prominent heterogeneous area measuring 3.1 x 2.2 x 2.8 cm with more peripheral anechoic region measuring 0.9 cm visualized near the right uterus. Heart rate:? 169 beats per minute ? Maternal organs:? Ovaries unremarkable with probable left corpus luteal cyst.. ? ? ? IMPRESSION:? 1. Single living intrauterine gestation with estimated sonographic gestational age of approximately 8 weeks and 2 days based off crown-rump length measurement.? Estimated dated delivery is approximately March 25, 2022. ? 2. Prominent heterogeneous collection measuring 3.1 x 2.2 x 2.8 cm with adjacent anechoic region measuring 0.9 cm near the right side of the uterus.? This may represent a prominent perigestational hemorrhage.? Recommend continued close clinical surveillance with repeat imaging as needed. ? ? We strive to produce accurate, complete, and clear reports of imaging services. To assist us in improving patient care, this report was composed using standard report templates and voice recognition software. Therefore, it may contain abnormal punctuation, insertions and/or omissions. Occasional wrong-word or sound-alike substitutions may occur. Though we review the report and make efforts to correct it, we do recommend that the report be read carefully in proper context to recognize any text inaccuracies. ? ? ? Dictated by: Glen Noguera M.D. on 08/15/2021 at 19:11 ? ? Discharge Plan Departure Patient Disposition: Home Clinical Impression: Subchorionic hematoma in first trimester Instructions: DI for Vaginal Bleeding During Activity Restrictions/Additional Instructions: *You have been diagnosed with [vaginal bleeding in . As we discussed, your history and physical exam are very reassuring and ultrasound notes inappropriate intrauterine , with a likely small hemorrhage that would have been the cause of your symptoms today. There is no need for immediate intervention based on my discussion with Ob *What to do: *Please continue to take your regular medications as directed. [ ] New medication prescriptions sent to your pharmacy: [ ] [ ] New medication written as a paper prescription [x ] No new medications given *Please follow up with your primaryOB provider in 2-3 days, call for an appointment. Let them know you were seen in the Emergency Department and that we ask that you be seen in follow up. We will electronically transmit a record of today's note if possible *Pelvic Rest: as we discussed, no intercourse or vigorous activity until follow up *If you do not have a primary care provider please contact the [facility] Resource line at [phone]. They will ask some questions about your medical history and help get you set up with a doctor in the community. *Return to Emergency Department if you should have any new, worsening or concerning symptoms, such as [fever greater than 101 F, shaking chills, worsening pain, persistent vomiting, bleeding through more than 1 pad per hour other bothersome symptoms] Prescriptions: No Action ondansetron 4 mg tablet,disintegrating 4 mg PO TID-QID PRN (Reason: nausea and vomiting) Qty: 20 0RF prenat.vits,ronen,[id number] Tablet 1 tab PO DAILY Qty: 30 0RF metoclopramide HCl [Reglan] 10 mg tablet 10 mg PO Q6H PRN (Reason: nausea and vomiting) Qty: 30 0RF Referrals: Dar Salomon MD [Primary Care Provider] - Pat Castellanos DO [Physician] -
[2021-08-15 19:59] VITALS: BP 117/60; PULSE 70; RESP 16; O2SAT 100
== END 2021-08-15 20:02 | disposition home or self-care (01) ==
PROVIDERS: Emergency Medicine; Emergency Provider Emergency Medicine; PCP Family Medicine
DX: O20.8 Other hemorrhage in early pregnancy (principal); Z3A.09 9 weeks gestation of pregnancy
CPT/HCPCS: 36415; 76801; 76817; 80053; 81003; 81015; 84702; 85025; 86900; 86901; 87086; 99284

== ENCOUNTER → 2021-08-25 15:48 | Outpatient (CLI) | payer OTHER, MEDICAID, SELFPAY ==
[2021-08-25 16:11] LABS: Add Manual Diff / Slide Review NO; Basophils Absolute Auto 100 /uL (0-100); Basophils Percent Auto 0.3 % (0-2); Eosinophils Absolute Auto 100 /uL (0-450); Eosinophils Percent Auto 0.4 % (2-4); Hematocrit 35.6 % (36-46); Lymphocytes Absolute Auto 1500 /uL (1100-4500); Lymphocytes Percent Auto 8.2 % (25-40); Mean Corpuscular HGB Conc 33.6 % (30-36); Mean Corpuscular Hemoglobin 30.7 PG (26-34); Mean Corpuscular Volume 91.2 fL (80-100); Monocytes Absolute Auto 900 /uL (0-900); Neutrophils Absolute Auto 16000 /uL (1500-7000); Neutrophils Percent Auto 86.1 % (50-75); Platelet Count 424 X10^3/uL (150-400); White Blood Cell Count 18.5 X10^3/uL (4.5-11.0)
[2021-08-25 16:14] LABS: Appearance Urine UA SL CLOUDY; Bilirubin Urine UA NEGATIVE (NEGATIVE); Color Urine UA YELLOW; Glucose Urine UA NEGATIVE (Negative); Ketones Urine UA NEGATIVE (NEGATIVE); Leukocyte Esterase Urine UA NEGATIVE (NEGATIVE); Nitrite Urine UA NEGATIVE (Negative); Occult Blood Urine UA NEGATIVE (Negative); Protein Urine UA TRACE (Negative); Urobilinogen Urine UA 0.2 E.U./dL (0.2)
[2021-08-25 16:16] LABS: pH Urine UA 6.5 (4.5-8.0)
[2021-08-25 16:18] LABS: UR Morphine/Opiate cutoff 300 Negative (Negative); Ur Creatinine Normal (Normal); Ur Specific Gravity Normal (Normal); Urine Amphetamines Negative (Negative); Urine Barbiturates Negative (Negative); Urine Benzodiazepines Negative (Negative); Urine Cocaine Negative (Negative); Urine MDMA Negative (Negative); Urine Methadone Negative (Negative); Urine Methamphetamines Negative (Negative); Urine Oxycodone Negative (Negative); Urine Phencyclidine Negative (Negative); Urine Tetrahydrocannabinol Positive (Negative); Urine Tricyclic Antidepressant Negative (Negative); Urine pH Normal (Normal)
[2021-08-25 17:58] LABS: HIV 1 & 2 Ab/Ag 4th Gen Combo NEGATIVE (NEGATIVE); Hep C Virus Ab w/Reflex Quant NEGATIVE s/c (NEGATIVE); Hepatitis B Surface Antigen NEGATIVE s/c (NEGATIVE); Rubella Antibody IgG 21.1 IU/mL (>15)
[2021-08-26 04:08] LABS: RPR Screen Non Reactive (Non Reactive)
[2021-08-26 18:36] LABS: Varicella IgG Antibody 148 index (Immune >165)
== END ==
PROVIDERS: PCP Family Medicine; Referring Provider Obstetrics & Gynecology; Visit Provider Obstetrics & Gynecology
DX: Z34.91 Encounter for supervision of normal pregnancy, unspecified, first trimester (principal); Z87.898 Personal history of other specified conditions
CPT/HCPCS: 36415; 80055; 80305; 81003; 86787; 86803; 86850; 86900; 86901; 87086; 87389

== ENCOUNTER → 2021-09-03 12:11 | Outpatient (CLI) | payer OTHER, MEDICAID, SELFPAY ==
--- NOTE | 2021-09-03 | DI.US.S_ITS ---
PROCEDURE: US OB <= 14 WEEKS FETUS INDICATIONS: DATES OUTSIDE/PRIOR DATING DATA: Last menstrual period (LMP): 06/16/2021 LMP-based estimated date of delivery (BERNARDA): 01/21/2022. First dating scan (date and location): 08/15/2021. Estimated date of delivery (BERNARDA) from first dating scan: 03/20/2022. The calculations are made using the ultrasound BERNARDA of 03/20/2022. TECHNIQUE: Real-time scanning was performed of the fetus and maternal pelvic organs, with image documentation. Endovaginal scanning was also performed to better visualize the fetus and maternal ovaries. COMPARISON: [facility], , OB <= 14 WEEKS FETUS, 08/15/2021, 18:19. FINDINGS: Embryo: [place]-rump length measures 4.8 cm corresponding to 11 weeks 4 days. Perigestational sac bleed site appearing similar prior examination currently measuring 2.9 x 1.6 x 3.1 cm compared to 3.1 x 2.2 x 2.8 cm on prior exam. Heart rate: 169 Maternal organs: Normal right ovary left ovary is not visualized. IMPRESSION: 1 Single living IUP redemonstrated with age estimated at 11 weeks 0 days by crown-rump length which corresponds to normal interval growth and BERNARDA of 03/25/2022. 2. Aside from technique differences, similar appearance of perigestational sac bleed site. We strive to produce accurate, complete, and clear reports of imaging services. To assist us in improving patient care, this report was composed using standard report templates and voice recognition software. Therefore, it may contain abnormal punctuation, insertions and/or omissions. Occasional wrong-word or sound-alike substitutions may occur. Though we review the report and make efforts to correct it, we do recommend that the report be read carefully in proper context to recognize any text inaccuracies. Dictated by: Reinaldo PICKERING Interpreted: Lety Barreto MD on 09/04/2021 at 16:26 Transcribed by: KEKE on 09/04/2021 at 16:28 Approved by: Lety Barreto M.D. on 09/04/2021 at 17:25
== END ==
PROVIDERS: PCP Family Medicine; Referring Provider Obstetrics & Gynecology; Visit Provider Obstetrics & Gynecology
DX: O20.9 Hemorrhage in early pregnancy, unspecified (principal); Z3A.11 11 weeks gestation of pregnancy
CPT/HCPCS: 76801; 76817

== ENCOUNTER → 2021-09-04 12:40 | Outpatient (CLI) | payer OTHER, MEDICAID, SELFPAY ==
[2021-09-04 16:18] LABS: Urine N gonorrhoeae NOT DETECTED
[2021-09-04 17:15] LABS: Urine Chlamydia NOT DETECTED
== END ==
PROVIDERS: PCP Family Medicine; Visit Provider Obstetrics & Gynecology
DX: Z34.81 Encounter for supervision of other normal pregnancy, first trimester (principal); Z3A.11 11 weeks gestation of pregnancy
CPT/HCPCS: 87491; 87591

== ENCOUNTER 2021-09-20 18:52 | Emergency (ER) | payer OTHER, MEDICAID, SELFPAY ==
[2021-09-20] VITALS (7 sets, daily range): BP systolic 122–132; BP diastolic 61–73; PULSE 68–85; RESP 16–17; TEMP 36.6; O2SAT 99–100; BMI 20.5
--- NOTE | 2021-09-20 19:14 | ED.NAVMDI ---
HPI - Nausea/Vomiting/Diarrhea General Chief complaint: Nausea/Vomiting/Diarrhea Stated complaint: 14 Wks Preg, Vomiting Time Seen by Provider: 09/20/21 19:14 Source: patient Mode of arrival: Ambulatory History of Present Illness HPI Narrative: 21-year-old female nonsmoker is a at 14 weeks and managed locally by OB. She presents with persistent nausea and vomiting over the course of the day. She denies any pain. She is a bit fatigued and lightheaded but denies dizziness. She has had no fever or chills. She denies any pelvic cramping, vaginal bleeding or leakage of fluid. Related Data Previous Rx's Medication Instructions Recorded ondansetron 4 mg disintegrating 4 mg PO TID-QID PRN #20 tab 07/16/21 tablet prenat.vits,ronen,[id number] 1 tab PO DAILY #30 tab 07/16/21 metoclopramide HCl 10 mg tablet 10 mg PO Q6H PRN #30 tab 07/18/21 (Reglan) metoclopramide HCl 10 mg tablet 10 mg PO Q6H PRN #20 tab 09/20/21 (Reglan) ondansetron 4 mg disintegrating 4 mg PO TID-QID PRN #10 tab 09/20/21 tablet potassium chloride 20 mEq 20 meq PO DAILY #10 tab 09/20/21 tablet,extended release promethazine 12.5 mg rectal 12.5 mg AR Q4-6H PRN #12 each 09/20/21 suppository Allergies Allergy/AdvReac Type Severity Reaction Status Date / Time amoxicillin Allergy Intermediate Verified 09/20/21 19:12 Penicillins Allergy Intermediate Verified 09/20/21 19:12 Review of Systems Review of Systems Narrative: GENERAL: Denies chills, fatigue, malaise, fever, sweats. HEENT: Denies sinus pain, ear pain, sore throat, difficulty swallowing, dizziness. RESPIRATORY: Denies dyspnea, cough, wheezing, hemoptysis, sputum. CARDIOVASCULAR: Denies chest pain, palpitations, orthopnea, edema, GASTROINTESTINAL: See HPI : Denies dysuria, frequency, incontinence, hematuria, urinary retention. MUSCULOSKELETAL: denies weakness, joint pain, or bony pain SKIN: Denies rash, skin lesions, or other NEUROLOGIC: Denies weakness, headache, numbness, change in speech, confusion, seizures, incoordination. PSYCHIATRIC: No concerning psychosocial issues. 12 point review of systems is negative except for those stated above Patient History Medical History Anxiety Borderline personality disorder Depression History of drug use Migraine UTI (urinary tract infection) Surgical History No history of previous surgery Social History marital status: unmarried,living together (engaged) number of children: 0 household members: significant other lives independently: Yes housing: apartment pets and animals: Yes (Cat - aware of toxoplasmosis) education level: high school (GED) occupational status: unemployed current occupational exposures/hazards: No special isabella needs: No seatbelt use: always water heater temp set < 120 deg: Yes (will check) working smoke detector in home: Yes fire extinguisher in home: No (will get) carbon monox detector in home: Yes firearms in home: Yes firearms unloaded and locked: Yes do you feel safe at home: Yes Smoking Status: Former smoker second hand exposure: Yes (occas) alcohol intake: former substance use type: former substance user and marijuana (cutting back) during the past year weight has: remained stable well-balanced diet: about half the time (poor appetite, uses Maijuana) daily servings fruits/ve-1 caffeine: No (limit to 200mg a day) 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 Well-developed patient, in mild distress. Holding an emesis bag HEAD: Atraumatic. Normocephalic. EYES: Pupils equal round and reactive. Extraocular motions intact. No scleral icterus. No injection or drainage. ENT: Nose without bleeding, purulent drainage. Throat without erythema, tonsillar hypertrophy or exudate. Airway patent. NECK: Trachea midline. Non tender CARDIOVASCULAR: Regular rate and rhythm without murmurs, gallops, or rubs. RESPIRATORY: Clear to auscultation. Breath sounds equal bilaterally. No wheezes, rales, or rhonchi. GASTROINTESTINAL: Abdomen soft, non-tender, nondistended. EXTREMITIES: No edema or joint tenderness. BACK: Nontender without deformity or crepitance. No flank tenderness. NEURO: AOx3. SKIN: No rash or erythema of visible areas Initial Vital Signs Initial Vital Signs: Vital Signs Temperature 98 F 09/20/21 19:03 Pulse Rate 68 09/20/21 19:03 Respiratory Rate 17 09/20/21 19:03 Blood Pressure 132/73 09/20/21 19:03 Pulse Oximetry 100 09/20/21 19:03 Course Orders Ordered: Discontinued Medications Sodium Chloride (Normal Saline 0.9%) 1,000 mls @ 1,000 mls/hr IV BOLUS ONE Stop: 09/20/21 20:13 Last Infusion: 09/20/21 21:14 Dose: 0 mls/hr Documented by: Admin: 09/20/21 19:55 Dose: 1,000 mls/hr Documented by: KATI Sodium Chloride (Normal Saline 0.9%) 1,000 mls @ 1,000 mls/hr IV BOLUS ONE Stop: 09/20/21 21:42 Last Infusion: 09/20/21 23:12 Dose: 0 mls/hr Documented by: Admin: 09/20/21 20:51 Dose: 1,000 mls/hr Documented by: KATI Ondansetron HCl (Ondansetron 4 Mg/2 Ml Inj) 4 mg IV NOW ONE Stop: 09/20/21 19:15 Last Admin: 09/20/21 19:55 Dose: 4 mg Documented by: KATI Pantoprazole Sodium (Pantoprazole 40 Mg Vial) 40 mg IV NOW ONE Stop: 09/20/21 20:44 Last Admin: 09/20/21 20:51 Dose: 40 mg Documented by: KATI Reevaluation(s) Reevaluation #1: Patient feeling better after above-stated therapies Vital Signs Vital signs: Vital Signs - 8 hr 09/20/21 23:09 09/20/21 23:10 09/20/21 23:11 Pulse Rate 80 80 76 Respiratory Rate 16 Blood Pressure 131/67 131/61 Pulse Oximetry 99 100 100 MDM - Nausea/Vomiting/Diarrhea Lab Data Result diagrams: 09/20/21 19:45 09/20/21 19:45 Labs: Lab Results 09/20/21 09/20/21 09/20/21 Range/Units 19:25 19:45 19:45 WBC 22.4 H (4.5-11.0) X10^3/uL RBC 3.75 L (4.0-5.2) X10^6/uL Hgb 11.5 L (12.0-16.0) g/dL Hct 33.8 L (36-46) % MCV 90.3 (80-100) fL MCH 30.6 (26-34) PG MCHC 33.9 (30-36) % RDW 12.8 (11.6-14.8) % Plt Count 398 (150-400) X10^3/uL Neut % (Auto) 96.3 H (50-75) % Lymph % (Auto) 2.6 L (25-40) % [place] % (Auto) 1.1 L (3-14) % Eos % (Auto) 0.0 L (2-4) % Baso % (Auto) 0.0 (0-2) % Neut # (Auto) 24277 H (8497-9012) /uL Lymph # (Auto) 600 L (8644-8150) /uL [place] # (Auto) 300 (0-900) /uL Eos # (Auto) 0 (0-450) /uL Baso # (Auto) 0 (0-100) /uL Sodium (137-145) mmol/L Potassium (3.4-5.1) mmol/L Chloride (98-107) mmol/L Carbon Dioxide (22-32) mmol/L BUN (7-17) mg/dL Creatinine (0.52-1.04) mg/dL Estimated GFR (>60) mL/min BUN/Creatinine Ratio (6-22) Glucose (70-100) mg/dL Calcium (8.4-10.2) mg/dL Total Bilirubin (0.2-1.3) mg/dL AST (14-36) IU/L ALT (<35) IU/L Alkaline Phosphatase (38-126) U/L Total Protein (6.3-8.2) g/dL Albumin (3.5-5.0) g/dL Globulin (1.7-4.1) g/dL Albumin/Globulin Ratio (1.0-2.8) Urine RBC 0-1/hpf (0-5/HPF) Urine WBC 0-1/hpf (0-5/HPF) Ur Squamous Epith Cells 1-5 /hpf (0-5/HPF) Urine Bacteria Occasional (0-1) (None) Urine Mucus 1+ H (Negative) Ur Culture Indicated? Cult not indicated Ketones 0.83 H (<0.27) mmol/L 09/20/21 Range/Units 19:45 WBC (4.5-11.0) X10^3/uL RBC (4.0-5.2) X10^6/uL Hgb (12.0-16.0) g/dL Hct (36-46) % MCV (80-100) fL MCH (26-34) PG MCHC (30-36) % RDW (11.6-14.8) % Plt Count (150-400) X10^3/uL Neut % (Auto) (50-75) % Lymph % (Auto) (25-40) % [place] % (Auto) (3-14) % Eos % (Auto) (2-4) % Baso % (Auto) (0-2) % Neut # (Auto) (1613-4378) /uL Lymph # (Auto) (0176-9015) /uL [place] # (Auto) (0-900) /uL Eos # (Auto) (0-450) /uL Baso # (Auto) (0-100) /uL Sodium 138 (137-145) mmol/L Potassium 3.1 L (3.4-5.1) mmol/L Chloride 106 (98-107) mmol/L Carbon Dioxide 19 L (22-32) mmol/L BUN 10 (7-17) mg/dL Creatinine 0.47 L (0.52-1.04) mg/dL Estimated GFR > 60 (>60) mL/min BUN/Creatinine Ratio 21.3 (6-22) Glucose 157 H (70-100) mg/dL Calcium 9.4 (8.4-10.2) mg/dL Total Bilirubin 1.0 (0.2-1.3) mg/dL AST 25 (14-36) IU/L ALT 16 (<35) IU/L Alkaline Phosphatase 49 (38-126) U/L Total Protein 7.9 (6.3-8.2) g/dL Albumin 5.0 (3.5-5.0) g/dL Globulin 2.9 (1.7-4.1) g/dL Albumin/Globulin Ratio 1.7 (1.0-2.8) Urine RBC (0-5/HPF) Urine WBC (0-5/HPF) Ur Squamous Epith Cells (0-5/HPF) Urine Bacteria (None) Urine Mucus (Negative) Ur Culture Indicated? Ketones (<0.27) mmol/L Point of Care Testing Glucose POC 135 Urine Dip Bedside Urine Glucose Negative Bedside Urine Bilirubin - Negative Bedside Urine Ketone +++ 80 Urine Specific [place] 1.015 Bedside Urine Occult Blood - Negative Bedside Urine pH 7 Bedside Urine Protein + 30 Bedside Urine Urobilinogen - Negative Bedside Urine Nitrite - Negative Bedside Urine Leukocytes - Negative Esterase Discharge Plan Departure Patient Disposition: Home Clinical Impression: Hyperemesis, Acute hypokalemia Instructions: DI for Dehydration -- Adult, DI for Hyperemesis Gravidarum Activity Restrictions/Additional Instructions: *You have been diagnosed with [hyperemesis gravidarum and hypokalemia] *What to do: *Please continue to take your regular medications as directed. [x ] New medication prescriptions sent to your pharmacy: [ [facility] in [place]] [ ] New medication written as a paper prescription [ ] No new medications given *Please follow up with your primary care provider in 2-3 days, call for an appointment. Let them know you were seen in the Emergency Department and that we ask that you be seen in follow up. We will electronically transmit a record of today's note if your PCP is in our system *If you do not have a primary care provider please contact the [facility] Resource line at [phone]. They will ask some questions about your medical history and help get you set up with a doctor in the community. *Return to Emergency Department if you should have any new, worsening or concerning symptoms, such as [fever greater than 101 F, shaking chills, worsening pain, persistent vomiting or other bothersome symptoms] Prescriptions: New promethazine 12.5 mg suppository 12.5 mg AR Q4-6H PRN (Reason: nausea and vomiting) Qty: 12 0RF ondansetron 4 mg tablet,disintegrating 4 mg PO TID-QID PRN (Reason: nausea and vomiting) Qty: 10 0RF metoclopramide HCl [Reglan] 10 mg tablet 10 mg PO Q6H PRN (Reason: nausea and vomiting) Qty: 20 0RF potassium chloride 20 mEq tablet extended release 20 meq PO DAILY Qty: 10 0RF No Action ondansetron 4 mg tablet,disintegrating 4 mg PO TID-QID PRN (Reason: nausea and vomiting) Qty: 20 0RF prenat.vits,ronen,[id number] Tablet 1 tab PO DAILY Qty: 30 0RF metoclopramide HCl [Reglan] 10 mg tablet 10 mg PO Q6H PRN (Reason: nausea and vomiting) Qty: 30 0RF Referrals: Dar Salomon MD [Primary Care Provider] -
[2021-09-20] MEDS: ONDANSETRON 4 MG/2 ML INJ IV (19:55)
[2021-09-20] MEDS: SODIUM CHLORIDE 0.9% 1,000 ML 1000 ML IV ×2 (19:55→20:51)
[2021-09-20 19:57] LABS: Add Manual Diff / Slide Review NO; Basophils Absolute Auto 0 /uL (0-100); Eosinophils Absolute Auto 0 /uL (0-450); Hematocrit 33.8 % (36-46); Hemoglobin 11.5 g/dL (12.0-16.0); Lymphocytes Absolute Auto 600 /uL (1100-4500); Lymphocytes Percent Auto 2.6 % (25-40); Mean Corpuscular HGB Conc 33.9 % (30-36); Mean Corpuscular Hemoglobin 30.6 PG (26-34); Mean Corpuscular Volume 90.3 fL (80-100); Monocytes Absolute Auto 300 /uL (0-900); Monocytes Percent Auto 1.1 % (3-14); Neutrophils Absolute Auto 21500 /uL (1500-7000); Neutrophils Percent Auto 96.3 % (50-75); Platelet Count 398 X10^3/uL (150-400); Red Blood Cell Count 3.75 X10^6/uL (4.0-5.2); Red Cell Distribution Width 12.8 % (11.6-14.8); White Blood Cell Count 22.4 X10^3/uL (4.5-11.0)
[2021-09-20 20:13] LABS: Alanine Aminotransferase 16 IU/L (<35); Albumin Globulin Ratio 1.7 (1.0-2.8); Alkaline Phosphatase 49 U/L (38-126); Aspartate Aminotransferase 25 IU/L (14-36); BUN Creatinine Ratio 21.3 (6-22); Blood Urea Nitrogen 10 mg/dL (7-17); Calcium 9.4 mg/dL (8.4-10.2); Carbon Dioxide 19 mmol/L (22-32); Chloride 106 mmol/L (98-107); Estimated Glomerular Filt Rate > 60 mL/min (>60); Globulin 2.9 g/dL (1.7-4.1); Glucose 157 mg/dL (70-100); HEMOLYSIS < 15 (0-50); Potassium 3.1 mmol/L (3.4-5.1); Sodium 138 mmol/L (137-145); Total Protein 7.9 g/dL (6.3-8.2)
[2021-09-20 20:14] LABS: Ketones (Beta-Hydroxybutyrate) 0.83 mmol/L (<0.27)
[2021-09-20] MEDS: PANTOPRAZOLE 40 MG VIAL IV (20:51)
[2021-09-20 22:00] LABS: Bacteria Urine Occasional (0-1); Mucus Urine 1+ (Negative); RBC Urine 0-1/HPF (0-5/HPF); Squamous Epithelial Cell Urine 1-5 /HPF (0-5/HPF); WBC Urine 0-1/HPF (0-5/HPF)
[2021-09-20 22:01] LABS: Culture Indicated Urine Cult Not Indicated
== END 2021-09-20 23:39 | disposition home or self-care (01) ==
PROVIDERS: Emergency Provider Emergency Medicine; PCP Family Medicine
DX: O21.1 Hyperemesis gravidarum with metabolic disturbance (principal); Z3A.14 14 weeks gestation of pregnancy; Z87.891 Personal history of nicotine dependence
CPT/HCPCS: 36415; 80053; 81003; 81015; 82009; 82962; 85025; 96361; 96374; 96375; 99284; C9113; J2405

== ENCOUNTER 2021-09-22 08:17 | Emergency (ER) | payer OTHER, MEDICAID, SELFPAY ==
[2021-09-22] VITALS (9 sets, daily range): BP systolic 117–130; BP diastolic 64–77; PULSE 73–88; RESP 14–19; TEMP 36.7; O2SAT 98–100; BMI 19.9
[2021-09-22 09:55] LABS: Appearance Urine UA CLOUDY; Bilirubin Urine UA NEGATIVE (NEGATIVE); Color Urine UA YELLOW; Glucose Urine UA NEGATIVE (Negative); Ketones Urine UA 2+ (NEGATIVE); Leukocyte Esterase Urine UA NEGATIVE (NEGATIVE); Nitrite Urine UA NEGATIVE (Negative); Occult Blood Urine UA NEGATIVE (Negative); Protein Urine UA 1+ (Negative); Urobilinogen Urine UA 0.2 E.U./dL (0.2)
[2021-09-22 10:01] LABS: Amorphous Sediment Urine 2+; RBC Urine None Seen (0-5/HPF); WBC Urine None Seen (0-5/HPF)
[2021-09-22 10:02] LABS: Bacteria Urine None Seen; Culture Indicated Urine Cult Not Indicated
[2021-09-22 10:06] LABS: COVID19 -Nasal RAPID Negative (Negative)
[2021-09-22 10:12] LABS: Add Manual Diff / Slide Review NO; Basophils Absolute Auto 0 /uL (0-100); Basophils Percent Auto 0.1 % (0-2); Eosinophils Absolute Auto 0 /uL (0-450); Hematocrit 31.2 % (36-46); Hemoglobin 10.8 g/dL (12.0-16.0); Lymphocytes Absolute Auto 900 /uL (1100-4500); Lymphocytes Percent Auto 4.5 % (25-40); Mean Corpuscular HGB Conc 34.5 % (30-36); Mean Corpuscular Hemoglobin 31.4 PG (26-34); Mean Corpuscular Volume 90.9 fL (80-100); Monocytes Absolute Auto 500 /uL (0-900); Monocytes Percent Auto 2.8 % (3-14); Neutrophils Absolute Auto 17500 /uL (1500-7000); Neutrophils Percent Auto 92.6 % (50-75); Platelet Count 326 X10^3/uL (150-400); Red Blood Cell Count 3.43 X10^6/uL (4.0-5.2); Red Cell Distribution Width 12.8 % (11.6-14.8); White Blood Cell Count 18.9 X10^3/uL (4.5-11.0)
[2021-09-22] MEDS: SODIUM CHLORIDE 0.9% 1,000 ML 1000 ML IV (10:16)
[2021-09-22] MEDS: ONDANSETRON 4 MG/2 ML INJ IV (10:16)
[2021-09-22] MEDS: PANTOPRAZOLE 40 MG VIAL IV (10:16)
[2021-09-22 10:18] LABS: Alanine Aminotransferase 15 IU/L (<35); Albumin 4.3 g/dL (3.5-5.0); Albumin Globulin Ratio 1.6 (1.0-2.8); Alkaline Phosphatase 43 U/L (38-126); Aspartate Aminotransferase 23 IU/L (14-36); BUN Creatinine Ratio 26.2 (6-22); Bilirubin Total 0.6 mg/dL (0.2-1.3); Blood Urea Nitrogen 11 mg/dL (7-17); Calcium 8.4 mg/dL (8.4-10.2); Carbon Dioxide 19 mmol/L (22-32); Chloride 105 mmol/L (98-107); Estimated Glomerular Filt Rate > 60 mL/min (>60); Globulin 2.7 g/dL (1.7-4.1); Glucose 121 mg/dL (70-100); HEMOLYSIS < 15 (0-50); Lipase 47 U/L (23-300); Potassium 3.1 mmol/L (3.4-5.1); Sodium 134 mmol/L (137-145)
--- NOTE | 2021-09-22 11:49 | ED_ITS ---
HPI - Nausea/Vomiting/Diarrhea General Chief complaint: Nausea/Vomiting/Diarrhea Stated complaint: throwing up since 4am, 14 wks Time Seen by Provider: 09/22/21 09:24 Source: patient Mode of arrival: Ambulatory Limitations: no limitations Related Data Previous Rx's Medication Instructions Recorded ondansetron 4 mg disintegrating 4 mg PO TID-QID PRN #20 tab 07/16/21 tablet prenat.vits,ronen,[id number] 1 tab PO DAILY #30 tab 07/16/21 metoclopramide HCl 10 mg tablet 10 mg PO Q6H PRN #30 tab 07/18/21 (Reglan) metoclopramide HCl 10 mg tablet 10 mg PO Q6H PRN #20 tab 09/20/21 (Reglan) ondansetron 4 mg disintegrating 4 mg PO TID-QID PRN #10 tab 09/20/21 tablet potassium chloride 20 mEq 20 meq PO DAILY #10 tab 09/20/21 tablet,extended release promethazine 12.5 mg rectal 12.5 mg NM Q4-6H PRN #12 each 09/20/21 suppository Allergies Allergy/AdvReac Type Severity Reaction Status Date / Time amoxicillin Allergy Intermediate Verified 09/20/21 19:12 Penicillins Allergy Intermediate Verified 09/20/21 19:12 Review of Systems Review of Systems ROS Unobtainable: All systems reviewed & are unremarkable except as noted in HPI and below Patient History Medical History Anxiety Borderline personality disorder Depression History of drug use Migraine UTI (urinary tract infection) Surgical History No history of previous surgery Social History marital status: unmarried,living together (engaged) number of children: 0 household members: significant other lives independently: Yes housing: apartment pets and animals: Yes (Cat - aware of toxoplasmosis) education level: high school (GED) occupational status: unemployed current occupational exposures/hazards: No special isabella needs: No seatbelt use: always water heater temp set < 120 deg: Yes (will check) working smoke detector in home: Yes fire extinguisher in home: No (will get) carbon monox detector in home: Yes firearms in home: Yes firearms unloaded and locked: Yes do you feel safe at home: Yes Smoking Status: Former smoker second hand exposure: Yes (occas) alcohol intake: former substance use type: former substance user and marijuana (cutting back) during the past year weight has: remained stable well-balanced diet: about half the time (poor appetite, uses Maijuana) daily servings fruits/ve-1 caffeine: No (limit to 200mg a day) 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 Status: Former smoker alcohol intake frequency: other Substance Use Type: marijuana Exam Initial Vital Signs Initial Vital Signs: Vital Signs Temperature 98.1 F 09/22/21 08:47 Pulse Rate 77 09/22/21 08:47 Respiratory Rate 18 09/22/21 08:47 Blood Pressure 121/77 09/22/21 08:47 Pulse Oximetry 99 09/22/21 08:47 Course Orders Ordered: Discontinued Medications Sodium Chloride (Normal Saline 0.9%) 1,000 mls @ 1,000 mls/hr IV BOLUS ONE Stop: 09/22/21 10:23 Last Infusion: 09/22/21 11:24 Dose: 0 mls/hr Documented by: Admin: 09/22/21 10:16 Dose: 1,000 mls/hr Documented by: EVIN Ondansetron HCl (Ondansetron 4 Mg/2 Ml Inj) 4 mg IV NOW ONE Stop: 09/22/21 09:25 Last Admin: 09/22/21 10:16 Dose: 4 mg Documented by: EVIN Pantoprazole Sodium (Pantoprazole 40 Mg Vial) 40 mg IV NOW ONE Stop: 09/22/21 09:25 Last Admin: 09/22/21 10:16 Dose: 40 mg Documented by: EVIN Vital Signs Vital signs: Vital Signs - 8 hr 09/22/21 08:47 Temperature 98.1 F Pulse Rate 77 Respiratory Rate 18 Blood Pressure 121/77 Pulse Oximetry 99 MDM - Nausea/Vomiting/Diarrhea Lab Data Result diagrams: 09/22/21 09:56 09/22/21 09:56 Labs: Lab Results 09/22/21 09/22/21 09/22/21 Range/Units 08:55 09:51 09:56 WBC 18.9 H (4.5-11.0) X10^3/uL RBC 3.43 L (4.0-5.2) X10^6/uL Hgb 10.8 L (12.0-16.0) g/dL Hct 31.2 L (36-46) % MCV 90.9 (80-100) fL MCH 31.4 (26-34) PG MCHC 34.5 (30-36) % RDW 12.8 (11.6-14.8) % Plt Count 326 (150-400) X10^3/uL Neut % (Auto) 92.6 H (50-75) % Lymph % (Auto) 4.5 L (25-40) % [place] % (Auto) 2.8 L (3-14) % Eos % (Auto) 0.0 L (2-4) % Baso % (Auto) 0.1 (0-2) % Neut # (Auto) 65070 H (4870-9063) /uL Lymph # (Auto) 900 L (8391-3529) /uL [place] # (Auto) 500 (0-900) /uL Eos # (Auto) 0 (0-450) /uL Baso # (Auto) 0 (0-100) /uL Sodium (137-145) mmol/L Potassium (3.4-5.1) mmol/L Chloride (98-107) mmol/L Carbon Dioxide (22-32) mmol/L BUN (7-17) mg/dL Creatinine (0.52-1.04) mg/dL Estimated GFR (>60) mL/min BUN/Creatinine Ratio (6-22) Glucose (70-100) mg/dL Calcium (8.4-10.2) mg/dL Total Bilirubin (0.2-1.3) mg/dL AST (14-36) IU/L ALT (<35) IU/L Alkaline Phosphatase (38-126) U/L Total Protein (6.3-8.2) g/dL Albumin (3.5-5.0) g/dL Globulin (1.7-4.1) g/dL Albumin/Globulin Ratio (1.0-2.8) Lipase (23-300) U/L Urine Color Yellow Urine Appearance Cloudy Urine pH 8.0 (4.5-8.0) Ur Specific [place] 1.020 (1.000-1.035) Urine Protein 1+ H (Negative) Urine Glucose (UA) Negative (Negative) g/dL Urine Ketones 2+ H (NEGATIVE) Urine Occult Blood Negative (Negative) Urine Nitrate Negative (Negative) Urine Bilirubin Negative (NEGATIVE) Urine Urobilinogen 0.2 (0.2) E.U./dL Ur Leukocyte Esterase Negative (NEGATIVE) Urine RBC None seen (0-5/HPF) Urine WBC None seen (0-5/HPF) Amorphous Sediment 2+ Urine Bacteria None seen (None) Ur Culture Indicated? Cult not indicated SARS-CoV-2 (PCR) Negative (Negative) 09/22/21 Range/Units 09:56 WBC (4.5-11.0) X10^3/uL RBC (4.0-5.2) X10^6/uL Hgb (12.0-16.0) g/dL Hct (36-46) % MCV (80-100) fL MCH (26-34) PG MCHC (30-36) % RDW (11.6-14.8) % Plt Count (150-400) X10^3/uL Neut % (Auto) (50-75) % Lymph % (Auto) (25-40) % [place] % (Auto) (3-14) % Eos % (Auto) (2-4) % Baso % (Auto) (0-2) % Neut # (Auto) (3488-8834) /uL Lymph # (Auto) (9079-5615) /uL [place] # (Auto) (0-900) /uL Eos # (Auto) (0-450) /uL Baso # (Auto) (0-100) /uL Sodium 134 L (137-145) mmol/L Potassium 3.1 L (3.4-5.1) mmol/L Chloride 105 (98-107) mmol/L Carbon Dioxide 19 L (22-32) mmol/L BUN 11 (7-17) mg/dL Creatinine 0.42 L (0.52-1.04) mg/dL Estimated GFR > 60 (>60) mL/min BUN/Creatinine Ratio 26.2 H (6-22) Glucose 121 H (70-100) mg/dL Calcium 8.4 (8.4-10.2) mg/dL Total Bilirubin 0.6 (0.2-1.3) mg/dL AST 23 (14-36) IU/L ALT 15 (<35) IU/L Alkaline Phosphatase 43 (38-126) U/L Total Protein 7.0 (6.3-8.2) g/dL Albumin 4.3 (3.5-5.0) g/dL Globulin 2.7 (1.7-4.1) g/dL Albumin/Globulin Ratio 1.6 (1.0-2.8) Lipase 47 (23-300) U/L Urine Color Urine Appearance Urine pH (4.5-8.0) Ur Specific [place] (1.000-1.035) Urine Protein (Negative) Urine Glucose (UA) (Negative) g/dL Urine Ketones (NEGATIVE) Urine Occult Blood (Negative) Urine Nitrate (Negative) Urine Bilirubin (NEGATIVE) Urine Urobilinogen (0.2) E.U./dL Ur Leukocyte Esterase (NEGATIVE) Urine RBC (0-5/HPF) Urine WBC (0-5/HPF) Amorphous Sediment Urine Bacteria (None) Ur Culture Indicated? SARS-CoV-2 (PCR) (Negative) Discharge Plan Departure Patient Disposition: Home Clinical Impression: Hyperemesis arising during Instructions: Hyperemesis Gravidarum Activity Restrictions/Additional Instructions: *You have been diagnosed with hyperemesis gravidum at 40 weeks. Please use your Reglan and your Zofran as needed for your nausea and vomiting. Wait 15 minutes and then try to hydrate with electrolyte drinks. Thank you for trusting us with your care, I am sorry that you felt as poorly as you have. Try to stay hydrate d, use Tylenol as needed, you can take 1-2 tabs of Zofran every 8 hours as needed, please supplement with Reglan so that you do not take too many her Zofran in 1 day. Wishing you the best with her , please follow-up with Dr. Epstein at your next appointment. *What to do: *Please continue to take your regular medications as directed. [ ] New medication prescriptions sent to your pharmacy: [ ] [ ] New medication written as a paper prescription [x ] No new medications given *Please follow up with your primary care provider in 2-3 days, call for an ap pointment. Let them know you were seen in the Emergency Department and that we asked that you be seen for follow-up. We will electronically transmit a record of today's note if your PCP is in our system *If you do not have a primary care provider please contact [phone] to establish care with one of the [facility] primary care providers. *Return to Emergency Department if you should have any new, worsening or concerning symptoms, such as [fever greater than 101F, chills, worsening pain, persistent vomiting or other bothersome symptoms] Prescriptions: No Action ondansetron 4 mg tablet,disintegrating 4 mg PO TID-QID PRN (Reason: nausea and vomiting) Qty: 20 0RF prenat.vits,ronen,[id number] Tablet 1 tab PO DAILY Qty: 30 0RF metoclopramide HCl [Reglan] 10 mg tablet 10 mg PO Q6H PRN (Reason: nausea and vomiting) Qty: 30 0RF promethazine 12.5 mg suppository 12.5 mg NM Q4-6H PRN (Reason: nausea and vomiting) Qty: 12 0RF ondansetron 4 mg tablet,disintegrating 4 mg PO TID-QID PRN (Reason: nausea and vomiting) Qty: 10 0RF metoclopramide HCl [Reglan] 10 mg tablet 10 mg PO Q6H PRN (Reason: nausea and vomiting) Qty: 20 0RF potassium chloride 20 mEq tablet extended release 20 meq PO DAILY Qty: 10 0RF Referrals: Dar Salomon MD [Primary Care Provider] - Kayode Epstein MD [Physician] - ED Sign-out Cosign ED Attending Cosignature Attestation: I was immediately available in the department for consultation. Documentation has been reviewed. Patient seen by ELMIRA Caruso.
== END 2021-09-22 12:23 | disposition home or self-care (01) ==
PROVIDERS: Emergency Medicine; Emergency Provider Nurse Practitioner Critical Care Medicine; PCP Family Medicine
DX: O21.0 Mild hyperemesis gravidarum (principal); Z20.822 Contact with and (suspected) exposure to COVID-19
CPT/HCPCS: 36415; 80053; 81001; 83690; 85025; 87635; 93005; 96361; 96374; 96375; 99284; C9803; C9113; J2405

== ENCOUNTER 2021-09-23 19:32 | Emergency (ER) | payer OTHER, MEDICAID, SELFPAY ==
[2021-09-23 19:38] VITALS: BP 126/79; PULSE 74; RESP 14; TEMP 37.6; O2SAT 99; BMI 19.5
== END 2021-09-23 20:50 | disposition left against medical advice (07) ==
PROVIDERS: Emergency Provider Emergency Medicine; PCP Family Medicine; Referring Provider Obstetrics & Gynecology
DX: O21.9 Vomiting of pregnancy, unspecified (principal)
CPT/HCPCS: 99281

== ENCOUNTER 2021-09-24 07:47 | Emergency (ER) | payer OTHER, MEDICAID, SELFPAY ==
[2021-09-24] VITALS (12 sets, daily range): BP systolic 103–131; BP diastolic 59–89; PULSE 64–82; RESP 13–26; TEMP 36.8; O2SAT 98–100; BMI 19.1
--- NOTE | 2021-09-24 08:08 | ED_ITS ---
HPI - Nausea/Vomiting/Diarrhea General Chief complaint: Nausea/Vomiting/Diarrhea Stated complaint: HG preg vomit 1 day-not eat 24hrs Time Seen by Provider: 09/24/21 07:58 History of Present Illness HPI Narrative: Patient is , approximately 14 weeks . She was seen yesterday for nausea vomiting, with hyperemesis gravidarum. She has had intermittent vomiting for about 2 weeks. She says she vomited probably 30 times in since being seen yesterday. She has no hematemesis. She has no diarrhea. She is smoking marijuana, about every 2-3 days. This apparently helps with nausea vomiting. She is not smoking large amounts of marijuana. She has no URI symptoms, sore throat or fever. She has occasional nonproductive cough. She has mild epigastric pain at this time. She denies back pain, dysuria hematuria. She has no vaginal bleeding. A viable was confirmed by ultrasound on 09/03/2021. Related Data Previous Rx's Medication Instructions Recorded ondansetron 4 mg disintegrating 4 mg PO TID-QID PRN #20 tab 07/16/21 tablet prenat.vits,ronen,xzp-[id number] 1 tab PO DAILY #30 tab 07/16/21 metoclopramide HCl 10 mg tablet 10 mg PO Q6H PRN #30 tab 07/18/21 (Reglan) metoclopramide HCl 10 mg tablet 10 mg PO Q6H PRN #20 tab 09/20/21 (Reglan) ondansetron 4 mg disintegrating 4 mg PO TID-QID PRN #10 tab 09/20/21 tablet potassium chloride 20 mEq 20 meq PO DAILY #10 tab 09/20/21 tablet,extended release promethazine 12.5 mg rectal 12.5 mg GA Q4-6H PRN #12 each 09/20/21 suppository promethazine 12.5 mg tablet 12.5 mg PO Q6H PRN #30 tab 09/24/21 Allergies Allergy/AdvReac Type Severity Reaction Status Date / Time amoxicillin Allergy Intermediate Verified 09/23/21 19:38 Penicillins Allergy Intermediate Verified 09/23/21 19:38 Review of Systems Constitutional Constitutional: Denies body ache(s), Denies chills, Reports fatigue, Denies fever(s), Denies headache(s), Denies night sweats and Reports poor appetite Eyes Eyes: Denies change in vision ENT Ears, Nose, Mouth, and Throat: Denies vertigo, Denies dizziness, Denies headache(s), Denies sinus pressure and Denies sore throat Cardiovascular Cardiovascular: Denies chest pain, Denies rapid heart rate, Denies pedal edema, Denies irregular heart rhythm and Denies dyspnea Respiratory Respiratory: Denies chest congestion, Reports cough, Denies pain with cough and Denies dyspnea Gastrointestinal Gastrointestinal: Reports as per HPI Genitourinary Genitourinary: Denies hematuria and Denies dysuria Musculoskeletal Musculoskeletal: Denies back pain Integumentary/Breasts Skin/Breast: Denies rash Neurologic Neurologic: Denies confusion, Denies vertigo, Denies dizziness and Denies headache(s) Psychiatric Psychiatric: Denies anxiety and Denies confusion Endocrine Endocrine: Reports fatigue Hematologic/Lymphatic On Anticoagulants: No Patient History Medical History (Updated 09/24/21 @ 12:04 by Horacio Archer MD) Anxiety Borderline personality disorder Depression History of drug use Hyperemesis gravidarum Migraine UTI (urinary tract infection) Surgical History No history of previous surgery Social History marital status: unmarried,living together (engaged) number of children: 0 household members: significant other lives independently: Yes housing: apartment pets and animals: Yes (Cat - aware of toxoplasmosis) education level: high school (GED) occupational status: unemployed current occupational exposures/hazards: No special isabella needs: No seatbelt use: always water heater temp set < 120 deg: Yes (will check) working smoke detector in home: Yes fire extinguisher in home: No (will get) carbon monox detector in home: Yes firearms in home: Yes firearms unloaded and locked: Yes do you feel safe at home: Yes Smoking Status: Former smoker second hand exposure: Yes (occas) alcohol intake: former substance use type: former substance user and marijuana (cutting back) during the past year weight has: remained stable well-balanced diet: about half the time (poor appetite, uses Maijuana) daily servings fruits/ve-1 caffeine: No (limit to 200mg a day) 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 Status: Former smoker alcohol intake frequency: other Substance Use Type: marijuana Exam Initial Vital Signs Initial Vital Signs: Vital Signs Temperature 98.3 F 09/24/21 07:49 Pulse Rate 74 09/24/21 07:49 Respiratory Rate 18 09/24/21 07:49 Blood Pressure 124/61 09/24/21 07:49 Pulse Oximetry 98 09/24/21 07:49 Const General: cooperative, healthy appearing, comfortable, well developed, well groomed and No acute distress [facility] Head: normocephalic and atraumatic Mouth: oral mucosae normal Throat: posterior oropharynx normal Eyes General: appearance normal, both eyes and all related structures Conjunctivae: conjunctivae normal Sclera: sclerae normal Neck Neck: normal visual inspection and No lymphadenopathy Chest Chest: normal inspection of the chest Resp Effort & Inspection: normal respiratory effort Cardio Rate: regular rate Rhythm: regular rhythm Heart Sounds: S1 normal, S2 normal, no click, no gallops and no murmurs GI Inspection: normal to inspection Palpation: soft, No guarding, No mass and No tender Auscultation: normal bowel sounds Back/Spine/Pelvis Back: No CVA tenderness Thoracic/Lumbar Spine: thoracic and lumbar spine normal to inspection Skin General: no rashes or lesions noted Neuro General: patient alert, patient awake and patient oriented x3 Extrem General: normal to inspection, full ROM, no pedal edema and no calf tenderness Psych Mental Status: mental status grossly normal Course Course Course Narrative: The patient has improved with the medications, initially Zofran then Promethazine. She complains of slight nausea but she is tolerating fluids. She was discharged home with availability use the combination of both Zofran and Promethazine. Orders Ordered: ED Orders 09/24/21 08:06 Complete Blood Count AUTO DIFF Stat Comprehensive Metabolic Panel Stat Lipase Stat 09/24/21 08:20 Urine Drug Screen, Rapid Stat Urine Microscopic Stat Discontinued Medications Sodium Chloride (Normal Saline 0.9%) 1,000 mls @ 1,000 mls/hr IV BOLUS ONE Stop: 09/24/21 09:07 Last Infusion: 09/24/21 10:00 Dose: 0 mls/hr Documented by: Admin: 09/24/21 08:53 Dose: 1,000 mls/hr Documented by: ELENA Ondansetron HCl (Ondansetron 4 Mg/2 Ml Inj) 4 mg IV NOW ONE Stop: 09/24/21 08:09 Last Admin: 09/24/21 08:52 Dose: 4 mg Documented by: ELENA Promethazine HCl (Promethazine 6.25 Mg/5 Ml Syrup) 12.5 mg PO NOW ONE Stop: 09/24/21 09:48 Last Admin: 09/24/21 10:23 Dose: 12.5 mg Documented by: ELENA Vital Signs Vital signs: Vital Signs - 8 hr 09/24/21 07:49 09/24/21 07:59 09/24/21 08:00 Temperature 98.3 F Pulse Rate 74 73 73 Respiratory Rate 18 19 18 Blood Pressure 124/61 103/59 L Pulse Oximetry 98 98 98 09/24/21 08:30 09/24/21 08:31 09/24/21 09:00 Temperature Pulse Rate 67 70 82 Respiratory Rate 13 26 H 15 Blood Pressure 126/70 111/89 Pulse Oximetry 99 99 100 09/24/21 09:30 09/24/21 10:00 09/24/21 11:00 Temperature Pulse Rate 66 76 82 Respiratory Rate 13 17 18 Blood Pressure 130/81 126/76 Pulse Oximetry 100 99 98 09/24/21 11:33 Temperature Pulse Rate 67 Respiratory Rate 13 Blood Pressure 127/79 Pulse Oximetry 100 MDM - Nausea/Vomiting/Diarrhea Lab Data Result diagrams: 09/24/21 08:06 09/24/21 08:06 Labs: Lab Results 09/24/21 09/24/21 09/24/21 Range/Units 08:06 08:06 08:20 WBC 14.6 H (4.5-11.0) X10^3/uL RBC 3.70 L (4.0-5.2) X10^6/uL Hgb 11.7 L (12.0-16.0) g/dL Hct 33.1 L (36-46) % MCV 89.4 (80-100) fL MCH 31.6 (26-34) PG MCHC 35.4 (30-36) % RDW 12.3 (11.6-14.8) % Plt Count 391 (150-400) X10^3/uL Neut % (Auto) 84.2 H (50-75) % Lymph % (Auto) 9.6 L (25-40) % Barry % (Auto) 5.8 (3-14) % Eos % (Auto) 0.1 L (2-4) % Baso % (Auto) 0.3 (0-2) % Neut # (Auto) 44190 H (4300-8844) /uL Lymph # (Auto) 1400 (0394-6672) /uL Barry # (Auto) 900 (0-900) /uL Eos # (Auto) 0 (0-450) /uL Baso # (Auto) 0 (0-100) /uL Sodium 135 L (137-145) mmol/L Potassium 3.4 (3.4-5.1) mmol/L Chloride 100 (98-107) mmol/L Carbon Dioxide 26 (22-32) mmol/L BUN 8 (7-17) mg/dL Creatinine 0.46 L (0.52-1.04) mg/dL Estimated GFR > 60 (>60) mL/min BUN/Creatinine Ratio 17.4 (6-22) Glucose 87 (70-100) mg/dL Calcium 8.9 (8.4-10.2) mg/dL Total Bilirubin 0.9 (0.2-1.3) mg/dL AST 35 (14-36) IU/L ALT 37 H (<35) IU/L Alkaline Phosphatase 42 (38-126) U/L Total Protein 7.7 (6.3-8.2) g/dL Albumin 4.8 (3.5-5.0) g/dL Globulin 2.9 (1.7-4.1) g/dL Albumin/Globulin Ratio 1.7 (1.0-2.8) Lipase 41 (23-300) U/L Urine RBC (0-5/HPF) Urine WBC (0-5/HPF) Ur Squamous Epith Cells (0-5/HPF) Urine Bacteria (None) Ur Culture Indicated? U Opiates 300ng/mL cut Negative (Negative) Ur Oxycodone Screen Negative (Negative) Urine Methadone Screen Negative (Negative) Ur Barbiturates Screen Negative (Negative) U Tricyclic Antidepress Negative (Negative) Ur Phencyclidine Scrn Negative (Negative) Ur Amphetamines Screen Negative (Negative) U Methamphetamines Scrn Negative (Negative) Ur MDMA Scrn (Ecstasy) Negative (Negative) U Benzodiazepines Scrn Negative (Negative) Urine Cocaine Screen Negative (Negative) U Marijuana (THC) Screen Positive H (Negative) 09/24/21 Range/Units 08:20 WBC (4.5-11.0) X10^3/uL RBC (4.0-5.2) X10^6/uL Hgb (12.0-16.0) g/dL Hct (36-46) % MCV (80-100) fL MCH (26-34) PG MCHC (30-36) % RDW (11.6-14.8) % Plt Count (150-400) X10^3/uL Neut % (Auto) (50-75) % Lymph % (Auto) (25-40) % Barry % (Auto) (3-14) % Eos % (Auto) (2-4) % Baso % (Auto) (0-2) % Neut # (Auto) (1930-6054) /uL Lymph # (Auto) (4434-3064) /uL Barry # (Auto) (0-900) /uL Eos # (Auto) (0-450) /uL Baso # (Auto) (0-100) /uL Sodium (137-145) mmol/L Potassium (3.4-5.1) mmol/L Chloride (98-107) mmol/L Carbon Dioxide (22-32) mmol/L BUN (7-17) mg/dL Creatinine (0.52-1.04) mg/dL Estimated GFR (>60) mL/min BUN/Creatinine Ratio (6-22) Glucose (70-100) mg/dL Calcium (8.4-10.2) mg/dL Total Bilirubin (0.2-1.3) mg/dL AST (14-36) IU/L ALT (<35) IU/L Alkaline Phosphatase (38-126) U/L Total Protein (6.3-8.2) g/dL Albumin (3.5-5.0) g/dL Globulin (1.7-4.1) g/dL Albumin/Globulin Ratio (1.0-2.8) Lipase (23-300) U/L Urine RBC 1-5/hpf (0-5/HPF) Urine WBC 1-5/hpf (0-5/HPF) Ur Squamous Epith Cells 5-10 /hpf H (0-5/HPF) Urine Bacteria None seen (None) Ur Culture Indicated? Cult not indicated U Opiates 300ng/mL cut (Negative) Ur Oxycodone Screen (Negative) Urine Methadone Screen (Negative) Ur Barbiturates Screen (Negative) U Tricyclic Antidepress (Negative) Ur Phencyclidine Scrn (Negative) Ur Amphetamines Screen (Negative) U Methamphetamines Scrn (Negative) Ur MDMA Scrn (Ecstasy) (Negative) U Benzodiazepines Scrn (Negative) Urine Cocaine Screen (Negative) U Marijuana (THC) Screen (Negative) Urine Dip Bedside Urine Glucose Negative Bedside Urine Bilirubin - Negative Bedside Urine Ketone - Negative Urine Specific [place] 1.015 Bedside Urine Occult Blood + Bedside Urine pH 6.0 Bedside Urine Protein + 30 Bedside Urine Urobilinogen +/- 1mg Bedside Urine Nitrite - Negative Bedside Urine Leukocytes - Negative Esterase Discharge Plan Departure Patient Disposition: Home Clinical Impression: Hyperemesis gravidarum Instructions: DI for Hyperemesis Gravidarum Activity Restrictions/Additional Instructions: Continue Zofran every 4 hours as needed for nausea. Promethazine every 4-6 hours as needed for added nausea control. Rest, drink plenty of fluids. I would recommend a bland diet. Contact your OB provider for follow-up. Return to the ER as necessary. Prescriptions: New promethazine 12.5 mg tablet 12.5 mg PO Q6H PRN (Reason: nausea and vomiting) Qty: 30 0RF Rx Instructions: 3 doses during day; last dose no later than 4 hr before bedtime No Action ondansetron 4 mg tablet,disintegrating 4 mg PO TID-QID PRN (Reason: nausea and vomiting) Qty: 20 0RF prenat.vits,ronen,[id number] Tablet 1 tab PO DAILY Qty: 30 0RF metoclopramide HCl [Reglan] 10 mg tablet 10 mg PO Q6H PRN (Reason: nausea and vomiting) Qty: 30 0RF promethazine 12.5 mg suppository 12.5 mg GA Q4-6H PRN (Reason: nausea and vomiting) Qty: 12 0RF ondansetron 4 mg tablet,disintegrating 4 mg PO TID-QID PRN (Reason: nausea and vomiting) Qty: 10 0RF metoclopramide HCl [Reglan] 10 mg tablet 10 mg PO Q6H PRN (Reason: nausea and vomiting) Qty: 20 0RF potassium chloride 20 mEq tablet extended release 20 meq PO DAILY Qty: 10 0RF Referrals: Dar Salomon MD [Primary Care Provider] -
[2021-09-24 08:17] LABS: Add Manual Diff / Slide Review NO; Basophils Absolute Auto 0 /uL (0-100); Basophils Percent Auto 0.3 % (0-2); Eosinophils Absolute Auto 0 /uL (0-450); Eosinophils Percent Auto 0.1 % (2-4); Hematocrit 33.1 % (36-46); Hemoglobin 11.7 g/dL (12.0-16.0); Lymphocytes Absolute Auto 1400 /uL (1100-4500); Lymphocytes Percent Auto 9.6 % (25-40); Mean Corpuscular HGB Conc 35.4 % (30-36); Mean Corpuscular Hemoglobin 31.6 PG (26-34); Mean Corpuscular Volume 89.4 fL (80-100); Monocytes Absolute Auto 900 /uL (0-900); Monocytes Percent Auto 5.8 % (3-14); Neutrophils Absolute Auto 12300 /uL (1500-7000); Neutrophils Percent Auto 84.2 % (50-75); Platelet Count 391 X10^3/uL (150-400); Red Cell Distribution Width 12.3 % (11.6-14.8); White Blood Cell Count 14.6 X10^3/uL (4.5-11.0)
[2021-09-24 08:23] LABS: Alanine Aminotransferase 37 IU/L (<35); Albumin 4.8 g/dL (3.5-5.0); Albumin Globulin Ratio 1.7 (1.0-2.8); Alkaline Phosphatase 42 U/L (38-126); Aspartate Aminotransferase 35 IU/L (14-36); BUN Creatinine Ratio 17.4 (6-22); Bilirubin Total 0.9 mg/dL (0.2-1.3); Blood Urea Nitrogen 8 mg/dL (7-17); Calcium 8.9 mg/dL (8.4-10.2); Carbon Dioxide 26 mmol/L (22-32); Chloride 100 mmol/L (98-107); Estimated Glomerular Filt Rate > 60 mL/min (>60); Globulin 2.9 g/dL (1.7-4.1); Glucose 87 mg/dL (70-100); HEMOLYSIS < 15 (0-50); Lipase 41 U/L (23-300); Potassium 3.4 mmol/L (3.4-5.1); Sodium 135 mmol/L (137-145); Total Protein 7.7 g/dL (6.3-8.2)
[2021-09-24 08:27] LABS: UR Morphine/Opiate cutoff 300 Negative (Negative); Ur Creatinine Normal (Normal); Ur Specific Gravity Normal (Normal); Urine Amphetamines Negative (Negative); Urine Barbiturates Negative (Negative); Urine Benzodiazepines Negative (Negative); Urine Cocaine Negative (Negative); Urine MDMA Negative (Negative); Urine Methadone Negative (Negative); Urine Methamphetamines Negative (Negative); Urine Oxycodone Negative (Negative); Urine Phencyclidine Negative (Negative); Urine Tetrahydrocannabinol Positive (Negative); Urine Tricyclic Antidepressant Negative (Negative); Urine pH Normal (Normal)
[2021-09-24 08:30] LABS: Bacteria Urine None Seen; Culture Indicated Urine Cult Not Indicated; RBC Urine 1-5/HPF (0-5/HPF); Squamous Epithelial Cell Urine 5-10 /HPF (0-5/HPF); WBC Urine 1-5/HPF (0-5/HPF)
[2021-09-24] MEDS: ONDANSETRON 4 MG/2 ML INJ IV (08:52)
[2021-09-24] MEDS: SODIUM CHLORIDE 0.9% 1,000 ML 1000 ML IV (08:53)
[2021-09-24] MEDS: PROMETHAZINE 6.25 MG/5 ML SYRUP 12.5 MG PO (10:23)
--- NOTE | 2021-09-24 10:42 | PC.NURSE ---
pt reports feeling much better after oral phenergan, sipped ice water. no vomiting of meds or water.
--- NOTE | 2021-09-24 12:55 | ED_ITS ---
HPI - Nausea/Vomiting/Diarrhea General Chief complaint: Nausea/Vomiting/Diarrhea Stated complaint: HG preg vomit 1 day-not eat 24hrs Time Seen by Provider: 09/24/21 07:58 Source: patient Mode of arrival: Ambulatory Related Data Previous Rx's Medication Instructions Recorded ondansetron 4 mg disintegrating 4 mg PO TID-QID PRN #20 tab 07/16/21 tablet prenat.vits,ronen,[id number] 1 tab PO DAILY #30 tab 07/16/21 metoclopramide HCl 10 mg tablet 10 mg PO Q6H PRN #30 tab 07/18/21 (Reglan) metoclopramide HCl 10 mg tablet 10 mg PO Q6H PRN #20 tab 09/20/21 (Reglan) ondansetron 4 mg disintegrating 4 mg PO TID-QID PRN #10 tab 09/20/21 tablet potassium chloride 20 mEq 20 meq PO DAILY #10 tab 09/20/21 tablet,extended release promethazine 12.5 mg rectal 12.5 mg IN Q4-6H PRN #12 each 09/20/21 suppository promethazine 12.5 mg tablet 12.5 mg PO Q6H PRN #30 tab 09/24/21 Allergies Allergy/AdvReac Type Severity Reaction Status Date / Time amoxicillin Allergy Intermediate Verified 09/23/21 19:38 Penicillins Allergy Intermediate Verified 09/23/21 19:38 Review of Systems Constitutional Constitutional: Denies headache(s) ENT Ears, Nose, Mouth, and Throat: Denies vertigo, Denies dizziness and Denies headache(s) Neurologic Neurologic: Denies confusion, Denies vertigo, Denies dizziness and Denies heada ijeoma(s) Psychiatric Psychiatric: Denies confusion Patient History Medical History (Updated 09/24/21 @ 12:04 by Horacio Archer MD) Anxiety Borderline personality disorder Depression History of drug use Hyperemesis gravidarum Migraine UTI (urinary tract infection) Surgical History No history of previous surgery Social History marital status: unmarried,living together (engaged) number of children: 0 household members: significant other lives independently: Yes housing: apartment pets and animals: Yes (Cat - aware of toxoplasmosis) education level: high school (GED) occupational status: unemployed current occupational exposures/hazards: No special isabella needs: No seatbelt use: always water heater temp set < 120 deg: Yes (will check) working smoke detector in home: Yes fire extinguisher in home: No (will get) carbon monox detector in home: Yes firearms in home: Yes firearms unloaded and locked: Yes do you feel safe at home: Yes Smoking Status: Former smoker second hand exposure: Yes (occas) alcohol intake: former substance use type: former substance user and marijuana (cutting back) during the past year weight has: remained stable well-balanced diet: about half the time (poor appetite, uses Maijuana) daily servings fruits/ve-1 caffeine: No (limit to 200mg a day) 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 Status: Former smoker alcohol intake frequency: other Substance Use Type: marijuana Exam Initial Vital Signs Initial Vital Signs: Vital Signs Temperature 98.3 F 09/24/21 07:49 Pulse Rate 74 09/24/21 07:49 Respiratory Rate 18 09/24/21 07:49 Blood Pressure 124/61 09/24/21 07:49 Pulse Oximetry 98 09/24/21 07:49 Course Orders Ordered: ED Orders 09/24/21 08:06 Complete Blood Count AUTO DIFF Stat Comprehensive Metabolic Panel Stat Lipase Stat 09/24/21 08:20 Urine Drug Screen, Rapid Stat Urine Microscopic Stat Discontinued Medications Sodium Chloride (Normal Saline 0.9%) 1,000 mls @ 1,000 mls/hr IV BOLUS ONE Stop: 09/24/21 09:07 Last Infusion: 09/24/21 10:00 Dose: 0 mls/hr Documented by: Admin: 09/24/21 08:53 Dose: 1,000 mls/hr Documented by: [email or web address] Ondansetron HCl (Ondansetron 4 Mg/2 Ml Inj) 4 mg IV NOW ONE Stop: 09/24/21 08:09 Last Admin: 09/24/21 08:52 Dose: 4 mg Documented by: [email or web address] Promethazine HCl (Promethazine 6.25 Mg/5 Ml Syrup) 12.5 mg PO NOW ONE Stop: 09/24/21 09:48 Last Admin: 09/24/21 10:23 Dose: 12.5 mg Documented by: TARANO Vital Signs Vital signs: Vital Signs - 8 hr 09/24/21 07:49 09/24/21 07:59 09/24/21 08:00 Temperature 98.3 F Pulse Rate 74 73 73 Respiratory Rate 18 19 18 Blood Pressure 124/61 103/59 L Pulse Oximetry 98 98 98 09/24/21 08:30 09/24/21 08:31 09/24/21 09:00 Temperature Pulse Rate 67 70 82 Respiratory Rate 13 26 H 15 Blood Pressure 126/70 111/89 Pulse Oximetry 99 99 100 09/24/21 09:30 09/24/21 10:00 09/24/21 11:00 Temperature Pulse Rate 66 76 82 Respiratory Rate 13 17 18 Blood Pressure 130/81 126/76 Pulse Oximetry 100 99 98 09/24/21 11:33 Temperature Pulse Rate 67 Respiratory Rate 13 Blood Pressure 127/79 Pulse Oximetry 100 MDM - Nausea/Vomiting/Diarrhea Lab Data Result diagrams: 09/24/21 08:06 09/24/21 08:06 Labs: Lab Results 09/24/21 09/24/21 09/24/21 Range/Units 08:06 08:06 08:20 WBC 14.6 H (4.5-11.0) X10^3/uL RBC 3.70 L (4.0-5.2) X10^6/uL Hgb 11.7 L (12.0-16.0) g/dL Hct 33.1 L (36-46) % MCV 89.4 (80-100) fL MCH 31.6 (26-34) PG MCHC 35.4 (30-36) % RDW 12.3 (11.6-14.8) % Plt Count 391 (150-400) X10^3/uL Neut % (Auto) 84.2 H (50-75) % Lymph % (Auto) 9.6 L (25-40) % [place] % (Auto) 5.8 (3-14) % Eos % (Auto) 0.1 L (2-4) % Baso % (Auto) 0.3 (0-2) % Neut # (Auto) 28497 H (3950-4954) /uL Lymph # (Auto) 1400 (9631-2492) /uL [place] # (Auto) 900 (0-900) /uL Eos # (Auto) 0 (0-450) /uL Baso # (Auto) 0 (0-100) /uL Sodium 135 L (137-145) mmol/L Potassium 3.4 (3.4-5.1) mmol/L Chloride 100 (98-107) mmol/L Carbon Dioxide 26 (22-32) mmol/L BUN 8 (7-17) mg/dL Creatinine 0.46 L (0.52-1.04) mg/dL Estimated GFR > 60 (>60) mL/min BUN/Creatinine Ratio 17.4 (6-22) Glucose 87 (70-100) mg/dL Calcium 8.9 (8.4-10.2) mg/dL Total Bilirubin 0.9 (0.2-1.3) mg/dL AST 35 (14-36) IU/L ALT 37 H (<35) IU/L Alkaline Phosphatase 42 (38-126) U/L Total Protein 7.7 (6.3-8.2) g/dL Albumin 4.8 (3.5-5.0) g/dL Globulin 2.9 (1.7-4.1) g/dL Albumin/Globulin Ratio 1.7 (1.0-2.8) Lipase 41 (23-300) U/L Urine RBC (0-5/HPF) Urine WBC (0-5/HPF) Ur Squamous Epith Cells (0-5/HPF) Urine Bacteria (None) Ur Culture Indicated? U Opiates 300ng/mL cut Negative (Negative) Ur Oxycodone Screen Negative (Negative) Urine Methadone Screen Negative (Negative) Ur Barbiturates Screen Negative (Negative) U Tricyclic Antidepress Negative (Negative) Ur Phencyclidine Scrn Negative (Negative) Ur Amphetamines Screen Negative (Negative) U Methamphetamines Scrn Negative (Negative) Ur MDMA Scrn (Ecstasy) Negative (Negative) U Benzodiazepines Scrn Negative (Negative) Urine Cocaine Screen Negative (Negative) U Marijuana (THC) Screen Positive H (Negative) 09/24/21 Range/Units 08:20 WBC (4.5-11.0) X10^3/uL RBC (4.0-5.2) X10^6/uL Hgb (12.0-16.0) g/dL Hct (36-46) % MCV (80-100) fL MCH (26-34) PG MCHC (30-36) % RDW (11.6-14.8) % Plt Count (150-400) X10^3/uL Neut % (Auto) (50-75) % Lymph % (Auto) (25-40) % [place] % (Auto) (3-14) % Eos % (Auto) (2-4) % Baso % (Auto) (0-2) % Neut # (Auto) (0002-2670) /uL Lymph # (Auto) (0946-0872) /uL [place]gg # (Auto) (0-900) /uL Eos # (Auto) (0-450) /uL Baso # (Auto) (0-100) /uL Sodium (137-145) mmol/L Potassium (3.4-5.1) mmol/L Chloride (98-107) mmol/L Carbon Dioxide (22-32) mmol/L BUN (7-17) mg/dL Creatinine (0.52-1.04) mg/dL Estimated GFR (>60) mL/min BUN/Creatinine Ratio (6-22) Glucose (70-100) mg/dL Calcium (8.4-10.2) mg/dL Total Bilirubin (0.2-1.3) mg/dL AST (14-36) IU/L ALT (<35) IU/L Alkaline Phosphatase (38-126) U/L Total Protein (6.3-8.2) g/dL Albumin (3.5-5.0) g/dL Globulin (1.7-4.1) g/dL Albumin/Globulin Ratio (1.0-2.8) Lipase (23-300) U/L Urine RBC 1-5/hpf (0-5/HPF) Urine WBC 1-5/hpf (0-5/HPF) Ur Squamous Epith Cells 5-10 /hpf H (0-5/HPF) Urine Bacteria None seen (None) Ur Culture Indicated? Cult not indicated U Opiates 300ng/mL cut (Negative) Ur Oxycodone Screen (Negative) Urine Methadone Screen (Negative) Ur Barbiturates Screen (Negative) U Tricyclic Antidepress (Negative) Ur Phencyclidine Scrn (Negative) Ur Amphetamines Screen (Negative) U Methamphetamines Scrn (Negative) Ur MDMA Scrn (Ecstasy) (Negative) U Benzodiazepines Scrn (Negative) Urine Cocaine Screen (Negative) U Marijuana (THC) Screen (Negative) Urine Dip Bedside Urine Glucose Negative Bedside Urine Bilirubin - Negative Bedside Urine Ketone - Negative Urine Specific [place] 1.015 Bedside Urine Occult Blood + Bedside Urine pH 6.0 Bedside Urine Protein + 30 Bedside Urine Urobilinogen +/- 1mg Bedside Urine Nitrite - Negative Bedside Urine Leukocytes - Negative Esterase Discharge Plan Departure Patient Disposition: Home Clinical Impression: Hyperemesis gravidarum Instructions: DI for Hyperemesis Gravidarum Activity Restrictions/Additional Instructions: Continue Zofran every 4 hours as needed for nausea. Promethazine every 4-6 hours as needed for added nausea control. Rest, drink plenty of fluids. I would recommend a bland diet. Contact your OB provider for follow-up. Return to the ER as necessary. Prescriptions: New promethazine 12.5 mg tablet 12.5 mg PO Q6H PRN (Reason: nausea and vomiting) Qty: 30 0RF Rx Instructions: 3 doses during day; last dose no later than 4 hr before bedtime No Action ondansetron 4 mg tablet,disintegrating 4 mg PO TID-QID PRN (Reason: nausea and vomiting) Qty: 20 0RF prenat.vits,ronen,[id number] Tablet 1 tab PO DAILY Qty: 30 0RF metoclopramide HCl [Reglan] 10 mg tablet 10 mg PO Q6H PRN (Reason: nausea and vomiting) Qty: 30 0RF promethazine 12.5 mg suppository 12.5 mg IN Q4-6H PRN (Reason: nausea and vomiting) Qty: 12 0RF ondansetron 4 mg tablet,disintegrating 4 mg PO TID-QID PRN (Reason: nausea and vomiting) Qty: 10 0RF metoclopramide HCl [Reglan] 10 mg tablet 10 mg PO Q6H PRN (Reason: nausea and vomiting) Qty: 20 0RF potassium chloride 20 mEq tablet extended release 20 meq PO DAILY Qty: 10 0RF Referrals: Dar Salomon MD [Primary Care Provider] -
== END 2021-09-24 13:08 | disposition home or self-care (01) ==
PROVIDERS: Emergency Provider Emergency Medicine; PCP Family Medicine; Referring Provider Obstetrics & Gynecology
DX: O21.0 Mild hyperemesis gravidarum (principal); O99.322 Drug use complicating pregnancy, second trimester; F12.90 Cannabis use, unspecified, uncomplicated; Z3A.14 14 weeks gestation of pregnancy
CPT/HCPCS: 36415; 80053; 80305; 81003; 81015; 83690; 85025; 96361; 96374; 99284; J2405

== ENCOUNTER → 2021-10-23 09:30 | Outpatient (CLI) | payer OTHER, MEDICAID, SELFPAY ==
[2021-10-23 12:42] LABS: UR Morphine/Opiate cutoff 300 Negative (Negative); Ur Creatinine Normal (Normal); Ur Specific Gravity Normal (Normal); Urine Amphetamines Negative (Negative); Urine Barbiturates Negative (Negative); Urine Benzodiazepines Negative (Negative); Urine Cocaine Negative (Negative); Urine MDMA Negative (Negative); Urine Methadone Negative (Negative); Urine Methamphetamines Negative (Negative); Urine Oxycodone Negative (Negative); Urine Phencyclidine Negative (Negative); Urine Tetrahydrocannabinol Positive (Negative); Urine Tricyclic Antidepressant Negative (Negative); Urine pH Normal (Normal)
[2021-10-25 21:18] LABS: AFP, Serum 19.6 ng/mL (.); Estriol, Free 2.83 ng/mL (.); Inhibin A, Dimeric 109.94 pg/mL (.); Inhibin A, MoM 0.55 (.); Maternal Ethnicity Caucasian (.); Maternal Weight 102 lbs (.); Number of Fetuses No (.); OSBR Risk 1 IN 10000 (.); Results Report (.); Test Results *Screen Negative* (.); hCG, MoM 0.44 (.); hCG, Serum 16736 mIU/mL (.)
== END ==
PROVIDERS: PCP Family Medicine; Referring Provider Obstetrics & Gynecology; Visit Provider Obstetrics & Gynecology
DX: Z34.82 Encounter for supervision of other normal pregnancy, second trimester (principal); F19.11 Other psychoactive substance abuse, in remission; Z3A.18 18 weeks gestation of pregnancy
CPT/HCPCS: 36415; 80305; 82105; 82677; 84702; 86336

== ENCOUNTER → 2021-11-06 09:11 | Outpatient (CLI) | payer OTHER, MEDICAID, SELFPAY ==
--- NOTE | 2021-11-06 09:12 | DI.US.S_ITS ---
PROCEDURE: US OB >= 14 WEEKS FETUS INDICATIONS: ANATOMY OUTSIDE/PRIOR DATING DATA: Last menstrual period (LMP): 06/16/2021 LMP-based estimated date of delivery (BERNARDA): 03/23/2022 First dating scan (date and location): 08/15/2021 Estimated date of delivery (BERNARDA) from first dating scan: 03/25/2022 The calculations are made using the study generated BERNARDA of 03/25/2022. TECHNIQUE: Real-time scanning was performed of the fetus, with image documentation and biometric measurements. Endovaginal scanning: Not indicated COMPARISON: None. FINDINGS: General: A single living intrauterine gestation is present. Presentation: Vertex Placenta: Placental position is anterior, without previa. Amniotic fluid index: 17.1 cm, normal range is 5-24 cm. Single deepest vertical pocket is 6.9 cm. heart rate: 158 beats per minute. Maternal cervical canal: 3.4 cm long. Normal lower limit is 2.5 cm. biometrics: Biparietal diameter: 4.7 cm, 20 weeks, 2 days. Head circumference: 17.6 cm, 20 weeks, 1 day. Abdominal circumference: 14.6 cm, 19 weeks, 6 days. Femur length: 3.2 cm, 19 weeks, 6 days. Clinically estimated gestational age: 20 weeks, 1 day. Composite gestational age from present scan: 20 weeks, 1 day. Estimated weight and percentile: 320 g, 32%. Anatomic survey: Neuro: Ventricles are non-dilated at less than 10 mm. Cisterna magna is normal at 3-11 mm. Cerebellum is normal in size and morphology. Nuchal skin fold: Normal at less than 6 mm between 14-21 weeks gestational age. Face: Nose and lips, facial profile are normal. Spine: No evidence for spina bifida. Heart: 4-chambered heart is present, with normal ventricular outflow tracts. Diaphragm: Diaphragm is intact. Stomach: Left-sided stomach is present. Kidneys: No hydronephrosis. Normal is less than 5 mm in 2nd trimester, less than 7 mm in 3rd trimester. Cord: 3-vessel cord has orthotopic insertion. Bladder: Normal in size. Extremities: All 4 extremities identified. IMPRESSION: 1. Single live intrauterine gestation with fetus in vertex presentation. heart rate is 158 beats per minute. Normal amount of amniotic fluid. Normal growth. 2. Estimated weight is at 32%. 3. Normal anatomic survey. We strive to produce accurate, complete, and clear reports of imaging services. To assist us in improving patient care, this report was composed using standard report templates and voice recognition software. Therefore, it may contain abnormal punctuation, insertions and/or omissions. Occasional wrong-word or sound-alike substitutions may occur. Though we review the report and make efforts to correct it, we do recommend that the report be read carefully in proper context to recognize any text inaccuracies. Dictated by: Xander Aleman M.D. on 11/06/2021 at 11:55 Approved by: Xander Aleman M.D. on 11/06/2021 at 11:58
== END ==
PROVIDERS: PCP Family Medicine; Referring Provider Obstetrics & Gynecology; Visit Provider Obstetrics & Gynecology
DX: Z34.82 Encounter for supervision of other normal pregnancy, second trimester (principal); Z3A.20 20 weeks gestation of pregnancy
CPT/HCPCS: 76811

== ENCOUNTER → 2021-12-18 13:03 | Outpatient (CLI) | payer OTHER, MEDICAID, SELFPAY ==
[2021-12-18 14:54] LABS: Hematocrit 30.3 % (36-46); Hemoglobin 10.5 g/dL (12.0-16.0)
[2021-12-18 15:07] LABS: GTT (PREG) 1 Hour PP 50gm Dose 85 mg/dL (76-139)
[2022-01-21 18:57] LABS: Ur Creatinine Normal (Normal)
[2022-01-21 18:58] LABS: UR Morphine/Opiate cutoff 300 Negative (Negative); Ur Specific Gravity Normal (Normal); Urine Amphetamines Negative (Negative); Urine Barbiturates Negative (Negative); Urine Benzodiazepines Negative (Negative); Urine Cocaine Negative (Negative); Urine MDMA Negative (Negative); Urine Methadone Negative (Negative); Urine Methamphetamines Negative (Negative); Urine Oxycodone Negative (Negative); Urine Phencyclidine Negative (Negative); Urine Tetrahydrocannabinol Positive (Negative); Urine Tricyclic Antidepressant Negative (Negative); Urine pH Normal (Normal)
== END ==
PROVIDERS: PCP Family Medicine; Referring Provider Obstetrics & Gynecology; Visit Provider Obstetrics & Gynecology
DX: Z34.82 Encounter for supervision of other normal pregnancy, second trimester (principal); Z3A.26 26 weeks gestation of pregnancy
CPT/HCPCS: 36415; 82950; 85014; 85018

== ENCOUNTER → 2022-01-12 14:21 | Outpatient (CLI) | payer OTHER, MEDICAID, SELFPAY ==
--- NOTE | 2022-01-12 14:22 | DI.US.S_ITS ---
PROCEDURE: OB FOLLOW UP INDICATIONS: Size less than dates; poor weight gain OUTSIDE/PRIOR DATING DATA: Last menstrual period (LMP): 06/16/21. LMP-based estimated date of delivery (BERNARDA): 03/23/22. First dating scan (date and location): 08/15/21. Estimated date of delivery (BERNARDA) from first dating scan: 03/25/22. The calculations are made using the first-trimester ultrasound BERNARDA of 03/25/22. TECHNIQUE: Real-time scanning was performed of the fetus, with image documentation. Endovaginal scanning: Not performed COMPARISON: [facility], OB <= 14 WEEKS FETUS, 08/15/2021, 18:19. [facility], OB >= 14 WEEKS FETUS, 11/06/2021, 9:21. FINDINGS: A single living intrauterine gestation is present. Presentation: Vertex. Placenta: Placental position is anterior, without previa. Amniotic fluid index: 10.5 cm, normal range is 5-24 cm. Single deepest vertical pocket is 4.8 cm. heart rate: 139 beats per minute. Maternal cervical canal: Closed and 3.6 cm long. Normal lower limit is 2.5 cm. Biparietal diameter 7.5 cm, 30 weeks, one day Head circumference 27.2 cm, 29 weeks, five days Abdominal circumference 25.42 cm, 29 weeks, three days Femur length 5.6 cm, 29 weeks, two days Composite gestational age: 29 weeks, five days Estimated gestational age from initial scan: 29 weeks, five days. Estimated weight 1401 g, 29th percentile IMPRESSION: 1. Single living intrauterine with appropriate growth. 2. Estimated weight at the 29th percentile. 3. Closed cervix and normal amniotic fluid volume. Dictated by: Diana Moreno M.D. on 01/12/2022 at 16:57 Approved by: Diana Moreno M.D. on 01/12/2022 at 17:02
== END ==
PROVIDERS: PCP Family Medicine; Referring Provider Obstetrics & Gynecology; Visit Provider Obstetrics & Gynecology
DX: O26.843 Uterine size-date discrepancy, third trimester (principal); O21.0 Mild hyperemesis gravidarum; Z3A.29 29 weeks gestation of pregnancy
CPT/HCPCS: 76816

== ENCOUNTER → 2022-02-12 10:45 | Outpatient (CLI) | payer OTHER, MEDICAID, SELFPAY ==
--- NOTE | 2022-02-12 10:46 | DI.US.S_ITS ---
PROCEDURE: US OB FOLLOW UP INDICATIONS: Poor weight gain, size less than dates OUTSIDE/PRIOR DATING DATA: Last menstrual period (LMP): June 16, 2021. LMP-based estimated date of delivery (BERNARDA): March 23, 2022. First dating scan (date and location): August 15, 2021 Estimated date of delivery (BERNARDA) from first dating scan: March 25, 2022. TECHNIQUE: Real-time scanning was performed of the fetus, with image documentation and biometric measurements. COMPARISON: [facility], OB FOLLOW UP, 01/12/2022, 14:28. FINDINGS: General: A single living intrauterine gestation is present. Presentation: Vertex. Placenta: Placental position is anterior , without previa. Amniotic fluid index: 10.9 cm, normal range is 5-24 cm. Single deepest vertical pocket is 5.6 cm. heart rate: 144 beats per minute. Maternal cervical canal: Not visualized biometrics: Biparietal diameter: 8.3 cm, 33 weeks, 3 days Head circumference: 2.9 cm, 31 weeks, 1 day Abdominal circumference: 2.8 cm, 32 weeks, 6 days Femur length: 6.2 cm, 32 weeks, 2 days Clinically estimated gestational age: 34 weeks, 1 day Composite gestational age from present scan: 33 weeks, 0 days Estimated weight and percentile: 2041 g, 12% Other: Not applicable. IMPRESSION: 1. Single live intrauterine gestation with a composite gestational age of 33 weeks, 0 days which is concordant with the dates by initial scan. 2. Estimated weight percentile of 12%. We strive to produce accurate, complete, and clear reports of imaging services. To assist us in improving patient care, this report was composed using standard report templates and voice recognition software. Therefore, it may contain abnormal punctuation, insertions and/or omissions. Occasional wrong-word or sound-alike substitutions may occur. Though we review the report and make efforts to correct it, we do recommend that the report be read carefully in proper context to recognize any text inaccuracies. Dictated by: Trish Park M.D. on 02/12/2022 at 15:17 Approved by: Trish Park M.D. on 02/12/2022 at 15:19
== END ==
PROVIDERS: PCP Family Medicine; Referring Provider Obstetrics & Gynecology; Visit Provider Obstetrics & Gynecology
DX: O26.10 Low weight gain in pregnancy, unspecified trimester (principal); O26.843 Uterine size-date discrepancy, third trimester; Z3A.33 33 weeks gestation of pregnancy
CPT/HCPCS: 76816; 76820

== ENCOUNTER → 2022-02-17 11:02 | Outpatient (CLI) | payer OTHER, MEDICAID, SELFPAY ==
[2022-02-17 13:16] LABS: Ur Creatinine Normal (Normal); Ur Specific Gravity Normal (Normal); Urine Cocaine Negative (Negative); Urine pH Normal (Normal)
[2022-02-17 13:17] LABS: UR Morphine/Opiate cutoff 300 Negative (Negative); Urine Amphetamines Negative (Negative); Urine Barbiturates Negative (Negative); Urine Benzodiazepines Negative (Negative); Urine MDMA Negative (Negative); Urine Methadone Negative (Negative); Urine Methamphetamines Negative (Negative); Urine Oxycodone Negative (Negative); Urine Phencyclidine Negative (Negative); Urine Tetrahydrocannabinol Positive (Negative); Urine Tricyclic Antidepressant Negative (Negative)
== END ==
PROVIDERS: PCP Family Medicine; Visit Provider Obstetrics & Gynecology
DX: O99.320 Drug use complicating pregnancy, unspecified trimester (principal); F19.10 Other psychoactive substance abuse, uncomplicated; Z3A.34 34 weeks gestation of pregnancy
CPT/HCPCS: 80305

== ENCOUNTER → 2022-02-19 13:48 | Outpatient (CLI) | payer OTHER, MEDICAID, SELFPAY ==
[2022-02-19 14:41] LABS: Alanine Aminotransferase 10 IU/L (<35); Albumin 3.2 g/dL (3.5-5.0); Albumin Globulin Ratio 1.3 (1.0-2.8); Alkaline Phosphatase 87 U/L (38-126); Amylase 68 U/L (30-110); Aspartate Aminotransferase 20 IU/L (14-36); BUN Creatinine Ratio 11.9 (6-22); Bilirubin Total 0.5 mg/dL (0.2-1.3); Blood Urea Nitrogen 5 mg/dL (7-17); Calcium 8.8 mg/dL (8.4-10.2); Carbon Dioxide 26 mmol/L (22-32); Chloride 102 mmol/L (98-107); Estimated Glomerular Filt Rate > 60 mL/min (>60); Globulin 2.5 g/dL (1.7-4.1); Glucose 75 mg/dL (70-100); HEMOLYSIS < 15 (0-50); Lipase 32 U/L (23-300); Sodium 134 mmol/L (137-145); Total Protein 5.7 g/dL (6.3-8.2)
== END ==
PROVIDERS: PCP Family Medicine; Referring Provider Obstetrics & Gynecology; Visit Provider Obstetrics & Gynecology
DX: O21.0 Mild hyperemesis gravidarum (principal)
CPT/HCPCS: 36415; 80053; 82150; 83690

== ENCOUNTER → 2022-02-23 13:11 | Outpatient (CLI) | payer OTHER, MEDICAID, SELFPAY ==
--- NOTE | 2022-02-23 13:12 | DI.RAD.S_ITS ---
PROCEDURE: FL GUIDED PICC PLACEMENT INDICATIONS: hyperemesis COMPARISON: None. FINDINGS: PICC was placed by the intravenous therapy team from the right side. Fluoroscopic spot film demonstrates the tip of PICC projecting to the area of mid SVC. IMPRESSION: Tip of PICC projects to the area of mid SVC. Dictated by: Dominik Gar M.D. on 02/23/2022 at 14:25 Approved by: Dominik Gar M.D. on 02/23/2022 at 14:25
== END ==
PROVIDERS: PCP Family Medicine; Referring Provider Obstetrics & Gynecology; Visit Provider Obstetrics & Gynecology
DX: O21.0 Mild hyperemesis gravidarum (principal)
CPT/HCPCS: 36573

== ENCOUNTER 2022-02-24 18:56 | Observation (INO) | payer OTHER, MEDICAID, SELFPAY ==
[2022-02-24] MEDS: LACTATED RINGERS 1,000 ML 1000 ML IV (20:12)
[2022-02-24] MEDS: ONDANSETRON 8 MG in SODIUM CHLORIDE 0.9% 50 ML 216 MG IV (20:12)
[2022-02-24] MEDS: SCOPOLAMINE 1 PATCH TOP (20:47)
[2022-02-24 20:51] LABS: Alanine Aminotransferase 11 IU/L (<35); Albumin 3.6 g/dL (3.5-5.0); Albumin Globulin Ratio 1.2 (1.0-2.8); Alkaline Phosphatase 118 U/L (38-126); Aspartate Aminotransferase 20 IU/L (14-36); Bilirubin Total 0.9 mg/dL (0.2-1.3); Blood Urea Nitrogen 8 mg/dL (7-17); Calcium 8.5 mg/dL (8.4-10.2); Carbon Dioxide 17 mmol/L (22-32); Chloride 106 mmol/L (98-107); Estimated Glomerular Filt Rate > 60 mL/min (>60); Globulin 3.1 g/dL (1.7-4.1); Glucose 151 mg/dL (70-100); HEMOLYSIS < 15 (0-50); Lactate (Lactic Acid) 1.9 mmol/L (0.7-2.1); Potassium 3.4 mmol/L (3.4-5.1); Sodium 135 mmol/L (137-145); Total Protein 6.7 g/dL (6.3-8.2)
--- NOTE | 2022-02-24 20:51 | DI.RAD.S_ITS ---
PROCEDURE: XR CHEST FOR PICC 1V INDICATIONS: Assess PICC position TECHNIQUE: One view of the chest was acquired. COMPARISON: Outside Film, CR, XR CHEST 2 VIEWS, 09/15/2018, 15:54. FINDINGS: Surgical changes and devices: There is a right upper extremity PICC line with the tip projecting over the superior vena cava approximately 4.5 cm from the cavoatrial junction. Lungs and pleura: Lungs are clear. No pleural effusions or pneumothorax. Mediastinum: Mediastinal contours appear normal. Heart size is normal. Bones and chest wall: No suspicious bony lesions. Overlying soft tissues appear unremarkable. IMPRESSION: 1. Right PICC line tip projects over the superior vena cava. Dictated by: Vincent Mace M.D. on 02/24/2022 at 23:26 Approved by: Vincent Mace M.D. on 02/24/2022 at 23:27
--- NOTE | 2022-02-24 21:02 | P.HPOB_ITS ---
OB HPI Date/Time Date of admission: 02/24/22 Date Patient Seen: 02/25/22 Time Patient Seen: 07:00 History of Present Condition Chief complaint: : 2 Para: 0 Estimated Gestational Age (weeks): 35+6 Narrative: Idania Peres is a 21 year old female [facility] Medical History Anxiety Borderline personality disorder Depression History of drug use Hyperemesis gravidarum Migraine UTI (urinary tract infection) Surgical History No history of previous surgery Social History marital status: unmarried,living together (engaged) number of children: 0 household members: significant other lives independently: Yes housing: apartment pets and animals: Yes (Cat - aware of toxoplasmosis) education level: high school (GED) occupational status: unemployed current occupational exposures/hazards: No special isabella needs: No seatbelt use: always water heater temp set < 120 deg: Yes (will check) working smoke detector in home: Yes fire extinguisher in home: No (will get) carbon monox detector in home: Yes firearms in home: Yes firearms unloaded and locked: Yes do you feel safe at home: Yes Smoking Status: Former smoker second hand exposure: Yes (occas) alcohol intake: former substance use type: former substance user and marijuana (cutting back) during the past year weight has: remained stable well-balanced diet: about half the time (poor appetite, uses Maijuana) daily servings fruits/ve-1 caffeine: No (limit to 200mg a day) 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 Home Medications and Allergies Home Medications Medication Instructions Recorded Confirmed Type ondansetron 4 mg disintegrating 4 mg PO TID-QID PRN nausea and 07/16/21 02/17/22 Rx tablet vomiting #20 tabs prenat.vits,ronen,nvj-ekyr-pvoec 1 tab PO DAILY #30 tabs 07/16/21 02/17/22 Rx metoclopramide HCl 10 mg tablet 10 mg PO Q6H PRN nausea and 07/18/21 02/17/22 Rx (Reglan) vomiting #30 tabs potassium chloride 20 mEq 20 meq PO DAILY #10 tabs 09/20/21 02/17/22 Rx tablet,extended release metoclopramide HCl 10 mg tablet 10 mg PO Q6H PRN nausea and 10/23/21 02/17/22 Rx (Reglan) vomiting #20 tabs promethazine 12.5 mg rectal 12.5 mg MN Q4-6H PRN nausea and 10/23/21 02/17/22 Rx suppository vomiting #20 ea promethazine 12.5 mg tablet 12.5 mg PO Q6H PRN nausea and 10/23/21 02/17/22 Rx vomiting #30 tabs ondansetron 4 mg disintegrating See Rx Instructions .Route 11/18/21 02/17/22 Rx tablet .COMPLEX #10 tabs Double Electric Breast Pump 1 ea topical .prn #1 ea 12/31/21 02/17/22 Rx Allergies Allergy/AdvReac Type Severity Reaction Status Date / Time amoxicillin Allergy Intermediate Verified 02/17/22 11:06 Penicillins Allergy Intermediate Verified 02/17/22 11:06 Objective Labs Result Diagrams: 02/24/22 20:05 Labs: Laboratory Results - last 24 hr 02/24/22 02/24/22 20:05 20:05 Sodium 135 L Potassium 3.4 Chloride 106 Carbon Dioxide 17 L BUN 8 Creatinine 0.40 L Estimated GFR > 60 BUN/Creatinine Ratio 20.0 Glucose 151 H Lactate 1.9 Calcium 8.5 Total Bilirubin 0.9 AST 20 ALT 11 Alkaline Phosphatase 118 Total Protein 6.7 Albumin 3.6 Globulin 3.1 Albumin/Globulin Ratio 1.2
[2022-02-24] MEDS: ZOLPIDEM 5 MG TABLET PO (22:05)
[2022-02-24] MEDS: SODIUM CHLORIDE 0.9% 1,000 ML 50 ML IV (22:10)
[2022-02-24] MEDS: POTASSIUM CHLORIDE IN WATER 10 MEQ/100 ML PIGGYBACK 100 MEQ IV (23:42)
[2022-02-25] MEDS: POTASSIUM CHLORIDE IN WATER 10 MEQ/100 ML PIGGYBACK 100 MEQ IV ×3 (00:56→04:16)
[2022-02-25] MEDS: ONDANSETRON 4 MG/2 ML INJ 8 MG (02:15)
--- NOTE | 2022-02-25 07:48 | PM.OBTRLD ---
Visit Information Visit Information Date of evaluation: 02/24/22 Primary OB Provider: Kayode Epstein On-call OB Provider: Kayode Epstein Reason for Evaluation: Yes other Comments/Additional reasons for admission: Idania is a 21 yo BERNARDA 03/25/2022 who presents with worsening N&V today after having a PICC line inserted and TPN initiated for hyperemesis gravidarum which she is been struggling with for her entire . She is not been able to consistently hold an any foods and growth has been impacted with her most recent estimated weight at 12th percentile. Vital Signs Vital Signs: See OBIX flowsheet; all VS within NL range PFSH Medical History Anxiety Borderline personality disorder Depression History of drug use Hyperemesis gravidarum Migraine UTI (urinary tract infection) Surgical History No history of previous surgery Social History marital status: unmarried,living together (engaged) number of children: 0 household members: significant other lives independently: Yes housing: apartment pets and animals: Yes (Cat - aware of toxoplasmosis) education level: high school (GED) occupational status: unemployed current occupational exposures/hazards: No special isabella needs: No seatbelt use: always water heater temp set < 120 deg: Yes (will check) working smoke detector in home: Yes fire extinguisher in home: No (will get) carbon monox detector in home: Yes firearms in home: Yes firearms unloaded and locked: Yes do you feel safe at home: Yes Smoking Status: Current some day smoker second hand exposure: Yes (occas) alcohol intake: former substance use type: former substance user and marijuana (cutting back) during the past year weight has: remained stable well-balanced diet: about half the time (poor appetite, uses Maijuana) daily servings fruits/ve-1 caffeine: No (limit to 200mg a day) 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) Review of Systems Review of Systems Narrative: Problem-specific ROS positives included in HPI Exam HENMT Head: normal to inspection, normocephalic and atraumatic Eyes General: appearance normal, both eyes and all related structures Resp Effort & Inspection: normal respiratory effort and able to speak in complete sentences Cardio Rate: regular rate Rhythm: regular rhythm GI Inspection: normal to inspection Palpation: soft and no hepatosplenomegaly Uterus Location (Fundal Height): 34 Presentation: vertex Estimated Weight (lbs): 5 Extrem Right lower extremity: normal to inspection Objective Labs Result Diagrams: 02/24/22 20:05 Labs: Laboratory Results - last 24 hr 02/24/22 02/24/22 20:05 20:05 Sodium 135 L Potassium 3.4 Chloride 106 Carbon Dioxide 17 L BUN 8 Creatinine 0.40 L Estimated GFR > 60 BUN/Creatinine Ratio 20.0 Glucose 151 H Lactate 1.9 Calcium 8.5 Total Bilirubin 0.9 AST 20 ALT 11 Alkaline Phosphatase 118 Total Protein 6.7 Albumin 3.6 Globulin 3.1 Albumin/Globulin Ratio 1.2 Evaluation Evaluation Baseline heart rate: 145 Variability: Moderate (11-25) monitor accelerations: Present Monitor Decelerations: Absent Uterine Contraction Intensity: Mild Category of Tracing: Reactive Diagnosis, Plan/Disposition Final Diagnosis (1) Poor weight gain of : Status: Acute (2) Hyperemesis gravidarum: Status: Acute (3) Size of fetus inconsistent with dates in third trimester: Status: Acute (4) : Status: Acute Plan/Disposition Plan: Patient received Zofran and IVF w/ K overnight and her nausea is significantly improved. Will continue TPN with plans to deliver by induction at 38 weeks gestational age; admission 03/10 for ripening and induction 03/11. Prescriptions for Zofran ODT q 8 hrs. and Phenergan suppositories 12.5 mg q 6-8 hrs. PRN. F/U for her next LATANYA visit as scheduled and IV infusion center tomorrow as scheduled. OB Disposition: home
[2022-02-25 08:12] VITALS: BP 126/76; PULSE 64; RESP 17; TEMP 36.8
== END 2022-02-25 08:53 | disposition home or self-care (01) ==
PROVIDERS: Admitting Provider Obstetrics & Gynecology; PCP Family Medicine; Referring Provider Obstetrics & Gynecology; Visit Provider Obstetrics & Gynecology
DX: O21.0 Mild hyperemesis gravidarum (principal); O47.03 False labor before 37 completed weeks of gestation, third trimester; O26.843 Uterine size-date discrepancy, third trimester; O26.13 Low weight gain in pregnancy, third trimester; Z3A.35 35 weeks gestation of pregnancy
CPT/HCPCS: 59025; 59050; 80053; 83605; 96360; G0378; G0379; J2405

== ENCOUNTER → 2022-03-04 12:02 | Outpatient (CLI) | payer OTHER, MEDICAID, SELFPAY ==
[2022-03-04 15:56] LABS: UR Morphine/Opiate cutoff 300 Negative (Negative); Ur Creatinine Normal (Normal); Ur Specific Gravity Normal (Normal); Urine Amphetamines Negative (Negative); Urine Barbiturates Negative (Negative); Urine Benzodiazepines Negative (Negative); Urine Cocaine Negative (Negative); Urine MDMA Negative (Negative); Urine Methadone Negative (Negative); Urine Methamphetamines Negative (Negative); Urine Oxycodone Negative (Negative); Urine Phencyclidine Negative (Negative); Urine Tetrahydrocannabinol Positive (Negative); Urine Tricyclic Antidepressant Negative (Negative); Urine pH Normal (Normal)
[2022-03-05 16:57] LABS: Strep Grp B PCR POS for Grp B Strep
== END ==
PROVIDERS: PCP Family Medicine; Visit Provider Obstetrics & Gynecology
DX: Z34.83 Encounter for supervision of other normal pregnancy, third trimester (principal); F19.11 Other psychoactive substance abuse, in remission; Z3A.37 37 weeks gestation of pregnancy
CPT/HCPCS: 80305; 87186; 87653

== ENCOUNTER 2022-03-07 08:49 | Inpatient (IN) | payer OTHER, MEDICAID, SELFPAY ==
--- NOTE | 2022-03-07 | PATH_ITS ---
[facility] Accession Number: [id number] . 01 Material submitted: . placenta - PLACENTA . 01 Clinical history: . PATIENT WITH HYPEREMESIS GRAVIDARUM AND RETAINED PLACENTA . 01 Diagnosis: A. Placenta, Delivery: Possibly incomplete small placenta (342 grams) showing villi consistent with third trimester gestational age and with focally increased syncytial knots (accelerated maturation). Three-vessels umbilical cord with eccentric insertion; no evidence of vasculitis, true knots, or thrombosis. membranes with amnion nodosum, reactive changes to the amniotic layer, and pigment/meconium-laden macrophages; no evidence of chorioamnionitis. Placental parenchyma with no evidence of villitis, abruption or intervillous infarcts or thrombosis. [facility] 03/17/2022 1055 Local . 01 Electronically signed: . June Brink MD, Pathologist NPI- [id number] . 01 Gross description: . The specimen is received in formalin labeled with the patient's name and no additional designation, and consists of a 342-gram discoid small placenta measuring 16.2 x 13.1 x 2.4 cm with no succenturiate lobes identified. . The membranes are disrupted and diffusely ruptured at the margin. The membranes insert at the margin and have an area of pale galindo discoloration measuring 4.3 cm in greatest dimension and occupy approximately 15% of the membrane surface. No additional thickening or discoloration is identified. . The umbilical cord measures 37.9 cm in length and averages 0.9 cm in diameter, inserting eccentrically 3.7 cm from the nearest placental disc edge. The cord has a leftward coil with an index of 1.5 twists per 5 cm. Sectioning reveals unremarkable trivascular architecture with no knots identified. . The surface is blue-meier with arborizing vasculature and diffuse pale discoloration adjacent to the vessels occupying approximately 20% of the surface. No additional lesions are identified. . The maternal surface is shaggy, disrupted, and possibly incomplete. Small pinpoint areas of white discoloration are identified across the maternal surface occupying less than 10%. Sectioning reveals a brown to red, spongy cut surface with areas of galindo discoloration located throughout the maternal cut surface occupying approximately 10% of the surface. [employer] sections are submitted as follows: . A1: [employer] cord. A2: Membrane roll to include area of discoloration. A3-A4: [employer] maternal surface discoloration. A5-A6: Full-thickness and cut surface discolorations. A7-A8: Central full-thickness sections (disrupted area). A9: Eccentric full-thickness section in intact area. ([id number]) /MRV 03/12/2022 1137 Local . 01 Pathologist provided ICD-10: O21.1 . 01 CPT . 243801 Specimen Comment: A courtesy copy of this report has been sent to [facility] Pathology Performed at: [address] [facility] Cytology [address] [place] [address], [place], [place] [id number] MD Vincent Rosenberg MD Phone: [phone]
[2022-03-07 09:54] VITALS: BP 122/82
--- NOTE | 2022-03-07 10:11 | PM.OBHP.IH.1 ---
OB HPI Date/Time Date of admission: 03/07/22 Date Patient Seen: 03/07/22 Time Patient Seen: 10:11 History of Present Condition Chief complaint: obs BERNARDA Calculator Estimated Delivery Date Method Current WG Current Estimate 03/25/22 Ultrasound #1 37w 3d Other Estimates 03/23/22 LMP (Uncertain) 37w 5d Estimated Gestational Age (weeks): 37.3 : 3 Para: 0 care: good care, initiated at week # (11), number of visits (9) and pounds weight gain (7) Dating criteria OB: based on 1st trimester US only Ultrasounds: normal 1st trimester US, normal mid trimester US and other (02/12/22 EFW 12%) Obstetrical complications: hyperemesis (requiring TPN) Preadmission Labs Last OB Lab Results: Blood Type O Positive 08/25/21 15:56 Antibody Screen Negative 08/25/21 15:56 Hematocrit 30.3 % (36-46) L 12/18/21 13:09 Hemoglobin 10.5 g/dL (12.0-16.0) L 12/18/21 13:09 Hepatitis B Surface Antigen Negative s/c (NEGATIVE) 08/25/21 15:56 Hepatitis C Antibody Negative s/c (NEGATIVE) 08/25/21 15:56 Rubella Antibody 21.1 IU/mL (>15) 08/25/21 15:56 Varicella-Zoster IgG Antibody 148 index (Immune >165) L 08/25/21 15:56 Glucose 1 Hour 85 mg/dL (76-139) 12/18/21 13:09 Group B Streptococcus (PCR) Pos for grp b strep H 03/04/22 13:25 Prior (ies) Past Pregnancies Del. Date GA/Weeks Labor Lgth Wt Sex Route Outcome Anesthesia Place Delv Breastfeed Preg Comp Name 07/11/14 spontaneous 10/06/17 elective Delivery Date: 07/11/14 Last Updated by: Susi Freitas, R.N. Not sure of date, unknow how far along, was on drugs Delivery Date: 10/06/17 Last Updated by: Susi Freitas R.N. Not sure when and how far along, had MTX, had hyperemesis before TAB complete Evaluation Evaluation Baseline heart rate: 130 Variability: Moderate (11-25) monitor accelerations: Present Monitor Decelerations: Absent Contraction Frequency (minutes): 2 Non-invasive Membranes Rupture Test: positive Comments: CE deferred [facility] Medical History Anxiety Borderline personality disorder Depression History of drug use Hyperemesis gravidarum Migraine UTI (urinary tract infection) Surgical History No history of previous surgery Social History marital status: unmarried,living together (engaged) number of children: 0 household members: significant other lives independently: Yes housing: apartment pets and animals: Yes (Cat - aware of toxoplasmosis) education level: high school (GED) occupational status: unemployed current occupational exposures/hazards: No special isabella needs: No seatbelt use: always water heater temp set < 120 deg: Yes (will check) working smoke detector in home: Yes fire extinguisher in home: No (will get) carbon monox detector in home: Yes firearms in home: Yes firearms unloaded and locked: Yes do you feel safe at home: Yes Smoking Status: Current every day smoker second hand exposure: Yes (occas) alcohol intake: former substance use type: former substance user and marijuana (cutting back) during the past year weight has: remained stable well-balanced diet: about half the time (poor appetite, uses Maijuana) daily servings fruits/ve-1 caffeine: No (limit to 200mg a day) 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 Home Medications and Allergies Home Medications Medication Instructions Recorded Confirmed Type ondansetron 4 mg disintegrating 4 mg PO TID-QID PRN nausea and 07/16/21 03/04/22 Rx tablet vomiting #20 tabs prenat.vits,ronen,syu-mmhr-xwjtl 1 tab PO DAILY #30 tabs 07/16/21 03/04/22 Rx metoclopramide HCl 10 mg tablet 10 mg PO Q6H PRN nausea and 07/18/21 03/04/22 Rx (Reglan) vomiting #30 tabs potassium chloride 20 mEq 20 meq PO DAILY #10 tabs 09/20/21 03/04/22 Rx tablet,extended release metoclopramide HCl 10 mg tablet 10 mg PO Q6H PRN nausea and 10/23/21 03/04/22 Rx (Reglan) vomiting #20 tabs promethazine 12.5 mg rectal 12.5 mg TN Q4-6H PRN nausea and 10/23/21 03/04/22 Rx suppository vomiting #20 ea promethazine 12.5 mg tablet 12.5 mg PO Q6H PRN nausea and 10/23/21 03/04/22 Rx vomiting #30 tabs ondansetron 4 mg disintegrating See Rx Instructions .Route 11/18/21 03/04/22 Rx tablet .COMPLEX #10 tabs Double Electric Breast Pump 1 ea topical .prn #1 ea 12/31/21 03/04/22 Rx ondansetron 8 mg disintegrating 8 mg PO Q8H #60 tabs 02/25/22 03/04/22 Rx tablet promethazine 12.5 mg rectal 12.5 mg TN Q4-6H PRN nausea and 02/25/22 03/04/22 Rx suppository vomiting #12 ea Allergies Allergy/AdvReac Type Severity Reaction Status Date / Time amoxicillin Allergy Intermediate Verified 03/04/22 11:49 Penicillins Allergy Intermediate Verified 03/04/22 11:49 Review of Systems Review of Systems ROS: Yes All systems reviewed with the patient and are negative except as otherwise documented OB Exam Resp Effort & Inspection: normal respiratory effort Auscultation: clear to auscultation bilaterally Cardio Rate: regular rate Rhythm: regular rhythm Heart Sounds: S1 normal and S2 normal Presentation: vertex Assessment and Plan Assessment and Plan Assessment and Plan narrative: A: Term nullipara PROM, approaching active labor GBS prophylaxis indicated Hyperemesis w/ PICC (R) in place Cat I FHR P: Admit, routine orders. Expectant management of labor. Given childhood (unknown) PCN allergy, cefazolin ordered for GBS prophylaxis. RN to call if contractions space. Spoke w/ primary OB, , who is headed out of the area: to be call for .
[2022-03-07] MEDS: LACTATED RINGERS 1,000 ML 100 ML IV (10:30)
[2022-03-07] MEDS: ONDANSETRON 4 MG/2 ML INJ IV ×2 (10:51→17:01)
[2022-03-07] MEDS: CEFAZOLIN 2 GM/100 ML PREMIX 100 ML IV (10:51)
[2022-03-07 12:03] LABS: Hematocrit 32.8 % (36-46); Hemoglobin 10.9 g/dL (12.0-16.0); Mean Corpuscular HGB Conc 33.4 % (30-36); Mean Corpuscular Hemoglobin 29.6 PG (26-34); Mean Corpuscular Volume 88.6 fL (80-100); Platelet Count 407 X10^3/uL (150-400); Red Cell Distribution Width 12.5 % (11.6-14.8); White Blood Cell Count 20.4 X10^3/uL (4.5-11.0)
[2022-03-07 12:12] LABS: Add Manual Diff / Slide Review YES
[2022-03-07 12:19] LABS: COVID19 -Nasal RAPID Negative (Negative)
[2022-03-07 12:57] LABS: Neutrophils Absolute Manual 16932 /uL (3000-5900); Total Cells Counted 100
[2022-03-07 12:58] LABS: RBC Morphology Normal Morphology
[2022-03-07] MEDS: CALCIUM CARBONATE 500 MG TAB 1000 MG PO ×4 (15:23→20:00)
--- NOTE | 2022-03-07 15:54 | P.PCN_ITS ---
Regional Block Pre-procedure Procedure: Continuous Lumbar Epidural for L&D Attending OB provider: Arielle Theodore PMH/ROS narrative: , hyperemesis gravidarum, h/o drug use, current MJ, tob ASA Class: II Labs: Hct 32.8 % (36-46) L 03/07/22 09:10 Plt Count 407 X10^3/uL (150-400) H 03/07/22 09:10 Medications: Current Medications Generic Name Dose Route Start Last Admin Trade Name Freq PRN Reason Stop Dose Admin Calcium Carbonate 1,000 mg 03/07/22 09:43 03/07/22 15:23 Calcium Carbonate 500 Mg Tab PO 1,000 mg Q2HR PRN Administration Dyspepsia Carboprost Tromethamine 250 mcg 03/07/22 09:43 Carboprost 250 Mcg/Ml Ampul IM Q90M PRN Bleeding Lactated Ringer's 1,000 mls @ 100 mls/hr 03/07/22 09:45 03/07/22 10:30 Lactated Ringers IV 100 mls/hr CONT DELORIS Administration Oxytocin/Lactated Ringer's 30 unit in 500 mls @ 200 mls/hr 03/07/22 09:43 Oxytocin Premix IV CONT PRN Bleeding Protocol Tranexamic Acid 1,000 mg/ 100 mls @ 200 mls/hr 03/07/22 09:43 Sodium Chloride IV NOW PRN Bleeding Cefazolin Sodium 1 gm/ Sodium 100 mls @ 200 mls/hr 03/07/22 18:00 Chloride IV Q8H DELORIS Oxytocin/Lactated Ringer's 30 unit in 500 mls @ 1 mls/hr 03/07/22 09:45 Oxytocin Premix IV TITRATE DELORIS Protocol 1 MILLIUNIT/MIN FENT 2MCG/ML BUPIV 0.125% EPI 200 mcg in 100 mls @ 6 mls/hr 03/07/22 14:45 Fentanyl/Bupiv/Ns 2mcg/Ml - 0.125% EPIDURAL CONT DELORIS Methylergonovine Maleate 0.2 mg 03/07/22 09:43 Methylergonovine 0.2 Mg Tablet PO Q6HR PRN Heavy Bleeding Methylergonovine Maleate 0.2 mg 03/07/22 09:43 Methylergonovine 0.2 Mg/Ml Vial IM NOW PRN Bleeding Misoprostol 800 mcg 03/07/22 09:43 Misoprostol 200 Mcg Tablet OH NOW PRN Bleeding Misoprostol 1,000 mcg 03/07/22 09:43 Misoprostol 200 Mcg Tablet OH NOW PRN Bleeding Misoprostol 400 mcg 03/07/22 09:43 Misoprostol 200 Mcg Tablet SL NOW PRN Bleeding Nalbuphine HCl 2.5 mg 03/07/22 14:38 Nalbuphine 20 Mg/Ml Ampul IV Q10M PRN Pruritis Ondansetron HCl 4 mg 03/07/22 09:43 03/07/22 10:51 Ondansetron 4 Mg/2 Ml Inj IV 4 mg Q4HR PRN Administration Nausea And Vomiting Oxytocin 10 unit 03/07/22 09:43 Oxytocin 10 Unit/Ml Vial IM NOW PRN Bleeding Allergies: Allergies Allergy/AdvReac Type Severity Reaction Status Date / Time amoxicillin Allergy Intermediate Verified 03/04/22 11:49 Penicillins Allergy Intermediate Verified 03/04/22 11:49 Procedure Insertion date: 03/07/22 Insertion time: 16:10 Prep/Local: betadine x3 and 1% lidocaine Interspace: L3-4 Patient position: sitting Needle: 18 gauge [employer] (CSE: 27g Pencan through Hustead, clear CSF, 2.5mg MPF bupiv) Loss of resistance with: saline TALIA at (cm): 3 Catheter placed at SKIN (cm): 8 Catheter in SPACE (cm): 5 Insertion: No CSF, No Blood, No Paresthesia with insertion, No Paresthesia with injection and No Test dose reaction Initial Medications TEST DOSE time: 16:14 TEST DOSE: 1.5% lidocaine with epinephrine 1:200k (mL): 3 Infusion INFUSION: 0.125% bupivacaine and with fentanyl 2 mcg/mL Initial rate (mL/hr): 5 Subsequent interventions: , lac repair Post-procedure Anesthesia time START: 16:04 Anesthesia time END: 21:57 Post-procedure Anesthesia Assessment: Yes CV function: HR/BP stable, Yes Resp function: RR/sat/airway adequate, Yes Mental status appropriate and No Anesthesia complications
[2022-03-07] MEDS: CEFAZOLIN VIAL 1 GM in SODIUM CHLORIDE 0.9% 100 ML IV (18:54)
--- NOTE | 2022-03-07 21:04 | P.PNOB_ITS ---
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 Called to attend pt as Gary HALEM is currently not available. I was aware of pt on floor since this am and her medical/ob history. Patient presented with spontaneous rupture of membranes for clear fluid this morning and she progressed into spontaneous labor. She has been receiving cefazolin for GBS prophylaxis. Her first cervical check was at 1740, 4-5cm. Last exam was 9cm. She was feeling pressure now and was felt to be complete. Pelvic Exam Dilation (cm): 9 Effacement (%): 100 station: +1 Amniotic membrane status: Ruptured Comments: ?ROP position Contractions Contractions on admission: regular Monitor mode: External Contraction frequency (min): 2 Contraction pattern: Regular Contraction intensity: Strong/Firm Status status: Category l Heart Rate Baseline: 130 Monitor Accelerations: Present Monitor Decelerations: Absent Monitor Variability: Moderate Assessment and Plan Assessment: active labor Plan: continuous present management Comments: Will re-check cervix in approx 30 minutes since pt feeling alot of pressure. Offered calling anesthesia for attempted epidural bolus if she needed. She feels she is doing fine with the pressure currently.
[2022-03-07] MEDS: OXYTOCIN PREMIX 30 UNIT/500 ML PLAST..BAG 200 UNIT IV (22:08)
[2022-03-07] MEDS: LIDOCAINE 1% 20 ML (22:10)
[2022-03-07] MEDS: FENT 2MCG/ML BUPIV 0.125% EPI 200 MCG/100 ML PLAST..BAG 6 MCG EPIDURAL (23:05)
--- NOTE | 2022-03-07 23:10 | PM.OBPRVD ---
Events: Other (Hyperemesis gravidum) Labor & Delivery Delivery date: 03/07/22 Cervical ripening method: none Induction method: none Delivery monitor: external FHT and external uterine Route of delivery: Episiotomy description: None L&D Laceration Description: Periurethral - 2nd Degree Quantitative Blood Loss: 250 Anesthesia Type: Epidural Complications: none retained placenta manually removed Narrative: 21-year-old G1 presented with rupture membranes. She progressed in spontaneous labor. She progressed to completely dilated at 2137. . Placenta manually removed due to an adherent portion/ intact/3VC. Small midline periurethral laceration repaired. The patient progressed to complete and pushing. Second stage of labor lasted approximately 15 minutes. She delivered by way of spontaneous vaginal delivery the vertex in a controlled fashion over an intact perineum. Nuchal cord x1 was present. The cord was somewhat tight assembler for puller over machine the head and patient instructed to push and baby easily delivered through the cord with the patient pushing. Anterior and posterior shoulders delivered with ease followed by the body. Cord then unwrapped from around the baby. The baby cried spontaneously, was vigorous and was placed on the maternal abdomen. After approximately 2 minutes, cord was clamped and then cut by the FOB. On inspection she had a small 2nd degree laceration superior to her urethra, extending to just beneath the clitoris. This was reapproximated with 4-0 Vicryl after injection with 1% lidocaine for local anesthesia. She had a right periurethral tear which Had a small portion that was a 2nd degree, then extended to superficial first-degree tear. This was reapproximated with 1 interrupted suture of 4-0 Vicryl. A small portion of her placenta had delivered through the cervical os soon after delivery of the . On awaiting full delivery of the placenta, spontaneous delivery did not occur. After the repair, now a good majority of the placenta was palpated in the vagina. With gentle traction and with the patient pushing, the placenta came through the introitus, but did not deliver. I could feel the placenta was still adherent and not fully dis-attached. On palpation placenta was palpated to still be going through the cervical os. Patient consented to manual removal of the placenta. I offered IV pain medication or to do under anesthesia and she declined. On manual removal, the portion that was adherent was adherent high in the uterus, posteriorly near the fundus. Her uterus was contracted down, but I was able to get 2 fingers up to the fundus and remove the placenta. After placenta removed, repeat digital exam confirmed complete removal. Inspection of the placenta showed it to be intact. She tolerated the manual removal well. She had normal bleeding after delivery of the placenta. She was given routine Pitocin IV. She continued to do well and was left to recover in good condition. Baby 1: gender: Male Presentation: vertex Position: Right Occiput Anterior Placenta delivery description: Manual Removal Cord Vessel Description: 3 Vessels and Nuchal Cord score (1 min): 8 score (5 min): 9 weight: 5 lb 13.3 oz Plan for aftercare: Routine care
[2022-03-08] MEDS: DERMOPLAST SPRAY 20% 60 ML 1 SPRAY TOP (00:40)
[2022-03-08] MEDS: IBUPROFEN 600 MG TABLET PO ×3 (00:41→18:09)
[2022-03-08] MEDS: ACETAMINOPHEN 325 MG TABLET 650 MG PO ×2 (00:42→18:08)
[2022-03-08] MEDS: CALCIUM CARBONATE 500 MG TAB 1000 MG PO (02:15)
[2022-03-08] MEDS: CEFAZOLIN VIAL 1 GM in SODIUM CHLORIDE 0.9% 100 ML IV (02:15)
--- NOTE | 2022-03-08 10:54 | PM.OBDS.1 ---
Discharge Providers Provider Date of admission: 03/07/22 08:49 Discharge Date: 03/08/22 Primary care physician: Dar Salomon MD Consults: 03/08/22 23:16 Consult to Vulnerability Researcher Routine Comment: Discharge provider: Cindy Marroquin MD Summary Hospital Course Date Patient Seen: 03/08/22 Time Patient Seen: 10:55 Diagnoses: 37 week , delivered status post spontaneous vaginal delivery and manual removal of retained placenta. Status post spontaneous rupture membranes, labor Hospital Course: 21-year-old female admitted at 37 weeks 3 days with spontaneous rupture membranes. She soon developed uncomfortable contractions and progressed into spontaneous labor. She had had a positive GBS screen and was started on Ancef for GBS prophylaxis, due to a penicillin allergy. She progressed well in labor and progressed to completely dilated. EFM remained category 1 through her labor. She had a short 2nd stage and delivered by way of spontaneous vaginal delivery a viable male infant weighing 5 lb 13 oz. She underwent manual removal of a retained placenta with about 25% placenta still adherent, attached at the fundus. She underwent manual removal without difficulty and had normal bleeding prior to and after removal of the placenta. She received 1 additional dose of cefazolin after manual removal. She is day 1 and doing well. She has had a normal course. Her lochia has remained normal. She is voiding without problems. She reports that her nausea has resolved since delivery. She had had hyperemesis and has a PICC line in place. The baby is latching well and doing well. she desires discharge home today when the baby is ready for discharge. Baby is doing well and per Dr. Lomax will be ready for discharge later today as well. Will discharge home. Will have appointment arrange in infusion clinic for removal of her PICC line. Follow-up appointment for patient in 6 weeks. Baby appointment as per recommendation by Dr. Lomax. Signs and symptoms of depression reviewed as she has a personal history of anxiety and depression. Peripartum Data Delivery Method: Natural Vaginal Laceration Description: Periurethral - 2nd Degree complications: none 1: Gender: Male Disposition of : home Status at Discharge Cognitive/behavioral status at discharge: oriented Functional status at discharge: independent ambulation Overall status at discharge: patient is back to baseline Time Spent with Patient Time attestation: Total time spent providing and/or coordinating discharge services: Time spent: Less than 30 minutes Objective Labs Result Diagrams: 03/07/22 09:10 Labs: Laboratory Results - last 24 hr 03/07/22 03/07/22 03/07/22 09:10 09:10 09:10 WBC 20.4 H RBC 3.70 L Hgb 10.9 L Hct 32.8 L MCV 88.6 MCH 29.6 MCHC 33.4 RDW 12.5 Plt Count 407 H Neut % (Auto) Not Reportable Lymph % (Auto) Not Reportable Victoria % (Auto) Not Reportable Eos % (Auto) Not Reportable Baso % (Auto) Not Reportable Lymph # (Auto) Not Reportable Victoria # (Auto) Not Reportable Baso # (Auto) Not Reportable Total Counted 100 Seg Neutrophils % 81.0 H Band Neutrophils % 2.0 L Lymphocytes % (Manual) 10.0 L Monocytes % (Manual) 5.0 Eosinophils % (Manual) 1.0 L Metamyelocytes % 1.0 H Neutrophils # (Manual) 77182 H RBC Morphology Normal morphology SARS-CoV-2 (PCR) Negative Blood Type O Positive Antibody Screen Negative Exam Vital Signs (past 8 hours): Temperature 98.9F. BP 118/78, pulse 74, respiratory rate 17 Narrative Exam Narrative: General: Well-appearing female in no acute distress Abdomen: Soft, nontender, nondistended. Fundus @U, firm, nontender Extremities: No pedal edema Discharge Plan Discharge Plan Patient Disposition: Home Provider Discharge Comment: Status post spontaneous vaginal delivery at 37 weeks and manual removal of retained placenta Discharge orders & Medications Prescriptions: New acetaminophen 325 mg Tablet 650 mg PO Q6HR PRN (Reason: Pain, Mild (1-3)) Qty: 7 0RF ibuprofen 600 mg Tablet 600 mg PO Q6HR PRN (Reason: Pain, Mild (1-3)) Qty: 7 0RF Purelan Cream 1 applic topical PRN PRN (Reason: Tenderness) Qty: 7 0RF Continued prenat.vits,ronen,[id number] Tablet 1 tab PO DAILY Qty: 30 0RF Discontinued ondansetron 4 mg tablet,disintegrating See Rx Instructions .ROUTE .COMPLEX Qty: 10 0RF Dose Instruction: DISSOLVE 1 TABLET IN MOUTH 3 TO 4 TIMES DAILY NEEDED FOR NAUSEA AND VOMITING Rx Instructions: DISSOLVE 1 TABLET IN MOUTH 3 TO 4 TIMES DAILY NEEDED FOR NAUSEA AND VOMITING Double Electric Breast Pump 1 ea topical .prn Qty: 1 0RF Rx Instructions: Pump with supplies metoclopramide HCl [Reglan] 10 mg tablet 10 mg PO Q6H PRN (Reason: nausea and vomiting) Qty: 20 0RF promethazine 12.5 mg tablet 12.5 mg PO Q6H PRN (Reason: nausea and vomiting) Qty: 30 1RF Rx Instructions: 3 doses during day; last dose no later than 4 hr before bedtime promethazine 12.5 mg suppository 12.5 mg AR Q4-6H PRN (Reason: nausea and vomiting) Qty: 20 3RF ondansetron 4 mg tablet,disintegrating 4 mg PO TID-QID PRN (Reason: nausea and vomiting) Qty: 20 0RF promethazine 12.5 mg suppository 12.5 mg AR Q4-6H PRN (Reason: nausea and vomiting) Qty: 12 3RF ondansetron 8 mg tablet,disintegrating 8 mg PO Q8H Qty: 60 2RF metoclopramide HCl [Reglan] 10 mg tablet 10 mg PO Q6H PRN (Reason: nausea and vomiting) Qty: 30 0RF potassium chloride 20 mEq tablet extended release 20 meq PO DAILY Qty: 10 0RF Medication counseling provided by Pharmacist: No Follow up/Referrals: Dar Salomon MD [Primary Care Provider] - Kayode Epstein MD [Physician] - 6 Weeks ( call Wednesday and schedule a 6 week appointment) Discharge Health Status Multidrug resistant organism: No MDRO Diet/Activity/Treatments Diet: Regular Activity: nothing in the vagina for 6 weeks, no tampons and no sex Skin/Wound/Dressing Care Report to your healthcare provider any signs of infection, such as:: chills, fever and increased pain Visit Report/Discharge Packet Instructions: DI for Labor and Delivery, Vaginal Discharge Data Primary Care Provider: Dar Salomon Attending Provider: Kayode Epstein
[2022-03-08 17:00] VITALS: BP 125/69; PULSE 80; RESP 16; TEMP 36.7
[2022-03-08] MEDS: LANOLIN OINT 7 GM 1 APPLIC TOP (18:09)
== END 2022-03-08 19:20 | disposition home or self-care (01) | DRG 560 ==
PROVIDERS: Nurse Practitioner Obstetrics & Gynecology; Admitting Provider Obstetrics & Gynecology; PCP Family Medicine; Referring Provider Obstetrics & Gynecology; Visit Provider Obstetrics & Gynecology
DX: O21.0 Mild hyperemesis gravidarum (principal); O99.824 Streptococcus B carrier state complicating childbirth; Z3A.37 37 weeks gestation of pregnancy; Z37.0 Single live birth; O99.324 Drug use complicating childbirth; F12.90 Cannabis use, unspecified, uncomplicated; O99.334 Smoking (tobacco) complicating childbirth; O70.1 Second degree perineal laceration during delivery; Z20.822 Contact with and (suspected) exposure to COVID-19
CPT/HCPCS: 01967; 59050; 59409; 85007; 85025; 86850; 86900; 86901; 87635; C9803; G0378; G0379; J0690; J2405; J2590

== ENCOUNTER → 2022-05-19 09:53 | Outpatient (CLI) | payer OTHER, MEDICAID, SELFPAY ==
[2022-05-19 11:25] LABS: T4 Total Thyroxine 7.13 ug/dL (5.5-11.0)
[2022-05-19 11:39] LABS: Thyroid Stimulating Hormone 0.509 uIU/mL (0.47-4.68)
== END ==
PROVIDERS: PCP Family Medicine; Referring Provider Obstetrics & Gynecology; Visit Provider Obstetrics & Gynecology
DX: R63.4 Abnormal weight loss (principal)
CPT/HCPCS: 36415; 84436; 84443

== ENCOUNTER → 2022-09-17 14:49 | Outpatient (CLI) | payer OTHER, MEDICAID, SELFPAY | PROVIDERS: PCP Family Medicine; Visit Provider Nurse Practitioner Family | DX: R10.9 Unspecified abdominal pain (principal); R30.0 Dysuria | CPT/HCPCS: 81002; 87086; 87210 ==

== ENCOUNTER 2023-03-24 10:35 | Emergency (ER) | payer OTHER, MEDICAID, SELFPAY ==
[2023-03-24 10:38] VITALS: BP 132/93; PULSE 78; RESP 16; TEMP 37.1; O2SAT 97
--- NOTE | 2023-03-24 11:04 | PC.NURSE ---
provider at bedside for initial assessment
[2023-03-24 11:08] LABS: Appearance Urine UA CLEAR; Bilirubin Urine UA NEGATIVE (NEGATIVE); Color Urine UA YELLOW; Glucose Urine UA NEGATIVE (Negative); Ketones Urine UA NEGATIVE (NEGATIVE); Leukocyte Esterase Urine UA 1+ (NEGATIVE); Nitrite Urine UA NEGATIVE (Negative); Occult Blood Urine UA NEGATIVE (Negative); Protein Urine UA NEGATIVE (Negative); Urobilinogen Urine UA 0.2 E.U./dL (0.2)
[2023-03-24 11:11] LABS: Pregnancy Test Urine Negative (Negative)
--- NOTE | 2023-03-24 11:15 | ED.ABDPAIN ---
HPI - Abdominal Pain General Chief Complaint: Abdominal Pain Stated Complaint: Lower left stomach pain Time Seen by Provider: 03/24/23 10:58 History of Present Illness HPI narrative: Patient here for complaints of 2 weeks off and on, not every day of lower abdominal bilateral cramping and nausea and vomiting. Denies . Just finished her menses. No urinary complaints. Usually has lower abdominal cramping with vomiting. Nonbloody. Has had some vaginal discharge as well. She thinks she may have been exposed to STI by her partner. Currently denies any complaints of pain or vomiting or nausea. She does agree for pelvic exam. Patient has history Related Data Previous Rx's Medication Instructions Recorded prenat.vits,ronen,[id number]-[id number] 1 tab PO DAILY #30 tabs 07/16/21 acetaminophen 325 mg tablet 650 mg (2 x 325 mg) PO Q6HR PRN 03/08/22 Pain, Mild (1-3) #7 tabs ibuprofen 600 mg tablet 600 mg PO Q6HR PRN Pain, Mild 03/08/22 (1-3) #7 tabs lanolin (Purelan topical cream) 1 applic topical PRN PRN 03/08/22 Tenderness #7 grams blood sugar diagnostic (True #100 ea 03/11/22 Metrix Glucose Test Strip) blood-glucose meter (True Metrix #1 ea 03/11/22 Glucose Meter kit) norethindrone (contraceptive) 0.35 0.35 mg PO DAILY #28 tabs 04/17/22 mg tablet (Ortho Micronor) ondansetron 4 mg disintegrating 4 mg PO Q8H PRN nausea and 03/24/23 tablet vomiting #20 tabs Allergies Allergy/AdvReac Type Severity Reaction Status Date / Time amoxicillin Allergy Intermediate Verified 09/17/22 14:57 Penicillins Allergy Intermediate Verified 09/17/22 14:57 Review of Systems Review of Systems Narrative: GENERAL: negative chills, fatigue, malaise, fever, sweats. HEENT: negative sinus pain, ear pain, sore throat RESPIRATORY: negative dyspnea, cough CARDIOVASCULAR: negative chest pain, palpitations GASTROINTESTINAL: Positive nausea, vomiting, abdominal pain : negative dysuria, frequency, hematuria, positive vaginal discharge MUSCULOSKELETAL: negative muscle or bony pain SKIN: negative rash, skin lesions NEUROLOGIC: negative weakness, numbness ROS Unobtainable: All systems reviewed & are unremarkable except as noted in HPI and below Patient History Medical History Hyperemesis gravidarum History of drug use UTI (urinary tract infection) Borderline personality disorder Migraine Depression Anxiety Surgical History No history of previous surgery Social History marital status: unmarried,living together (engaged) number of children: 0 household members: significant other lives independently: Yes housing: apartment pets and animals: Yes (Cat - aware of toxoplasmosis) education level: high school (GED) occupational status: unemployed current occupational exposures/hazards: No special isabella needs: No seatbelt use: always water heater temp set < 120 deg: Yes (will check) working smoke detector in home: Yes fire extinguisher in home: No (will get) carbon monox detector in home: Yes firearms in home: Yes firearms unloaded and locked: Yes do you feel safe at home: Yes Smoking Status: Current every day smoker second hand exposure: Yes (occas) alcohol intake: former substance use type: former substance user and marijuana (cutting back) during the past year weight has: remained stable well-balanced diet: about half the time (poor appetite, uses Maijuana) daily servings fruits/ve-1 caffeine: No (limit to 200mg a day) 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 EYES: Pupils equal round ENT: Mucous membranes moist. NECK: Trachea midline. CARDIOVASCULAR: Regular rate and rhythm RESPIRATORY: Clear to auscultation. Breath sounds equal bilaterally. No wheezes, rales, or rhonchi. GASTROINTESTINAL: Abdomen soft, non-tender abdomen is soft flat nontender no peritoneal signs bowel sounds are present. No CVA tenderness. Patient has steady self gait. Not hunched over. 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 No vaginal bleeding or discharge. No vaginal lesions. No CMT no adnexal tenderness. EXTREMITIES: No gross deformities. BACK: No flank tenderness. NEURO: AOx4. SKIN: Warm and dry PSYCH: Not anxious, is cooperative Initial Vital Signs Initial Vital Signs: Vital Signs Temperature 98.7 F 03/24/23 10:38 Pulse Rate 78 03/24/23 10:38 Respiratory Rate 16 03/24/23 10:38 Blood Pressure 132/93 H 03/24/23 10:38 Pulse Oximetry 97 03/24/23 10:38 Oxygen Delivery Method Room Air 03/24/23 10:38 Course Orders Ordered: ED Orders 03/24/23 10:42 Chlamydia Gonorrhea PCR -URINE Stat Test Urine Stat Urinalysis and Microscopic Stat Urine Culture Stat 03/24/23 11:25 CBC Auto Diff [Complete Blood Count AUTO DIFF] Stat CMP [Comprehensive Metabolic Panel] Stat 03/24/23 11:33 Wet Prep Tric BV Valerie Stat Vital Signs Vital signs: Vital Signs - 8 hr 03/24/23 10:38 03/24/23 12:38 Temperature 98.7 F 98.5 F Pulse Rate 78 70 Respiratory Rate 16 16 Blood Pressure 132/93 H 134/84 Pulse Oximetry 97 98 Oxygen Delivery Method Room Air Room Air MDM - Abdominal Pain Lab Data 03/24/23 11:25 03/24/23 11:25 Labs: Lab Results 03/24/23 03/24/23 Range/Units 10:42 11:25 WBC 8.7 (4.5-11.0) X10^3/uL RBC 4.19 (4.0-5.2) X10^6/uL Hgb 12.8 (12.0-16.0) g/dL Hct 37.9 (36-46) % MCV 90.4 (80-100) fL MCH 30.6 (26-34) PG MCHC 33.8 (30-36) % RDW 13.1 (11.6-14.8) % Plt Count 432 H (150-400) X10^3/uL Neut % (Auto) 74.8 (50-75) % Lymph % (Auto) 15.9 L (25-40) % [place] % (Auto) 7.7 (3-14) % Eos % (Auto) 0.9 L (2-4) % Baso % (Auto) 0.7 (0-2) % Neut # (Auto) 6500 (0755-6546) /uL Lymph # (Auto) 1400 (4859-2029) /uL [place] # (Auto) 700 (0-900) /uL Eos # (Auto) 100 (0-450) /uL Baso # (Auto) 100 (0-100) /uL Sodium 135 L (137-145) mmol/L Potassium 4.2 (3.4-5.1) mmol/L Chloride 105 (98-107) mmol/L Carbon Dioxide 23 (22-32) mmol/L BUN 13 (7-17) mg/dL Creatinine 0.66 (0.52-1.04) mg/dL Estimated GFR > 60 (>60) mL/min BUN/Creatinine Ratio 19.7 (6-22) Glucose 97 (70-100) mg/dL Calcium 9.2 (8.4-10.2) mg/dL Total Bilirubin 0.6 (0.2-1.3) mg/dL AST 31 (14-36) IU/L ALT 29 (<35) IU/L Alkaline Phosphatase 41 (38-126) U/L Total Protein 7.1 (6.3-8.2) g/dL Albumin 4.3 (3.5-5.0) g/dL Globulin 2.8 (1.7-4.1) g/dL Albumin/Globulin Ratio 1.5 (1.0-2.8) Urine Color Yellow Urine Appearance Clear Urine pH 7.0 (4.5-8.0) Ur Specific [place] 1.020 (1.000-1.035) Urine Protein Negative (Negative) Urine Glucose (UA) Negative (Negative) g/dL Urine Ketones Negative (NEGATIVE) Urine Occult Blood Negative (Negative) Urine Nitrate Negative (Negative) Urine Bilirubin Negative (NEGATIVE) Urine Urobilinogen 0.2 (0.2) E.U./dL Ur Leukocyte Esterase 1+ H (NEGATIVE) Urine RBC 1-5/hpf (0-5/HPF) Urine WBC 5-10/hpf H (0-5/HPF) Ur Squamous Epith Cells 1-5 /hpf (0-5/HPF) Urine Bacteria Few (2-10) H (None) Ur Culture Indicated? Specimen cultured Urine Test Negative (Negative) Ur Chlamydia DNA (PCR) Not detected N gonorrhoeae DNA (PCR) Not detected MDM Narrative Medical decision making narrative: Patient here for complaints of 2 weeks off and on, not every day of lower abdominal bilateral cramping and nausea and vomiting. Denies . Just finished her menses. No urinary complaints. Usually has lower abdominal cramping with vomiting. Nonbloody. Has had some vaginal discharge as well. She thinks she may have been exposed to STI by her partner. Currently denies any complaints of pain or vomiting or nausea. She does agree for pelvic exam. Patient has history After history and exam CBC CMP urinalysis test GC chlamydia, wet prep pelvic exam MDM CC: Pelvic cramping Complicating co-morbidities: None Data collected from: Patient Medical records reviewed: No recent visit for this complaint Differential considered: Includes but not limited to UTI PID vaginitis STI Exam documented above, pertinent findings include: Nontender abdomen normal pelvic exam Lab Test results independently reviewed as above. Pertinent findings: Negative test, WBC 5-10 negative leuk esterase negative nitrate GC chlamydia negative, wet prep negative WBC 8.7 sodium 135 BUN 13 creatinine 0.66 AST 31 ALT 29 Treatments: None indicated at this time Re-evaluations: 12:56 p.m.. Patient doing well. No vomiting no pain. Reviewed results with her. They are reassuring at this time. No imaging indicated at this time. Exam and labs are reassuring. Return precautions reviewed with her. Uncertain source of her complaints/symptoms but appropriate for follow up with primary care. She agrees with plan. Discussion: Appropriate for discharge home. Exam is reassuring. No imaging indicated this time. No pelvic ultrasound indicated this time. Pain-free. Likely not ovarian torsion or cyst. No antibiotics indicated. No CT indicated at this time. Exam and laboratory studies are reassuring. No fever. Return precautions reviewed with her. She desires discharge home Diagnosis: Abdominal pain Discharge Plan Departure Patient Disposition: Home Clinical Impression: Abdominal pain Qualifiers: Abdominal location: lower abdomen, unspecified Qualified Code(s): R10.30 - Lower abdominal pain, unspecified Nausea & vomiting Qualifiers: Vomiting type: unspecified Qualified Code(s): R11.2 - Nausea with vomiting, unspecified Instructions: DI for Abdominal Pain-Adult, DI for Nausea -- Adult Activity Restrictions/Additional Instructions: See your family doctor in a week for re-evaluation. Call provided primary care referral phone number to establish family doctor. Call [phone]. Today's laboratory studies and exam are reassuring. Nausea medication has been sent to your pharmacy to use. Keep well hydrated. Return if worse if any questions or concerns. Prescriptions: New ondansetron 4 mg tablet,disintegrating 4 mg PO Q8H PRN (Reason: nausea and vomiting) Qty: 20 0RF No Action (DME) blood-glucose meter [True Metrix Glucose Meter] Kit See Rx Instructions .Route Qty: 1 0RF Rx Instructions: Use to check glucose twice daily (DME) True Metrix Glucose Test Strip Strip See Rx Instructions .Route Qty: 100 1RF Rx Instructions: Use 1 new strip to check glucose twice daily norethindrone (contraceptive) [Ortho Micronor] 0.35 mg tablet 0.35 mg PO DAILY Qty: 28 12RF prenat.vits,ronen,[id number] Tablet 1 tab PO DAILY Qty: 30 0RF acetaminophen 325 mg Tablet 650 mg PO Q6HR PRN (Reason: Pain, Mild (1-3)) Qty: 7 0RF ibuprofen 600 mg Tablet 600 mg PO Q6HR PRN (Reason: Pain, Mild (1-3)) Qty: 7 0RF Purelan Cream 1 applic topical PRN PRN (Reason: Tenderness) Qty: 7 0RF Referrals: Dar Salomon MD [Primary Care Provider] - Stand Alone Forms: Patient Portal/API
[2023-03-24 11:17] LABS: Bacteria Urine Few (2-10); Culture Indicated Urine Specimen Cultured; RBC Urine 1-5/HPF (0-5/HPF); Squamous Epithelial Cell Urine 1-5 /HPF (0-5/HPF); WBC Urine 5-10/HPF (0-5/HPF)
[2023-03-24 11:34] LABS: Add Manual Diff / Slide Review NO; Basophils Absolute Auto 100 /uL (0-100); Basophils Percent Auto 0.7 % (0-2); Eosinophils Absolute Auto 100 /uL (0-450); Eosinophils Percent Auto 0.9 % (2-4); Hematocrit 37.9 % (36-46); Hemoglobin 12.8 g/dL (12.0-16.0); Lymphocytes Absolute Auto 1400 /uL (1100-4500); Lymphocytes Percent Auto 15.9 % (25-40); Mean Corpuscular HGB Conc 33.8 % (30-36); Mean Corpuscular Hemoglobin 30.6 PG (26-34); Mean Corpuscular Volume 90.4 fL (80-100); Monocytes Absolute Auto 700 /uL (0-900); Monocytes Percent Auto 7.7 % (3-14); Neutrophils Absolute Auto 6500 /uL (1500-7000); Neutrophils Percent Auto 74.8 % (50-75); Platelet Count 432 X10^3/uL (150-400); Red Blood Cell Count 4.19 X10^6/uL (4.0-5.2); Red Cell Distribution Width 13.1 % (11.6-14.8); White Blood Cell Count 8.7 X10^3/uL (4.5-11.0)
[2023-03-24 12:06] LABS: Alanine Aminotransferase 29 IU/L (<35); Albumin 4.3 g/dL (3.5-5.0); Albumin Globulin Ratio 1.5 (1.0-2.8); Alkaline Phosphatase 41 U/L (38-126); Aspartate Aminotransferase 31 IU/L (14-36); BUN Creatinine Ratio 19.7 (6-22); Bilirubin Total 0.6 mg/dL (0.2-1.3); Blood Urea Nitrogen 13 mg/dL (7-17); Calcium 9.2 mg/dL (8.4-10.2); Carbon Dioxide 23 mmol/L (22-32); Chloride 105 mmol/L (98-107); Estimated Glomerular Filt Rate > 60 mL/min (>60); Globulin 2.8 g/dL (1.7-4.1); Glucose 97 mg/dL (70-100); HEMOLYSIS < 15 (0-50); Potassium 4.2 mmol/L (3.4-5.1); Sodium 135 mmol/L (137-145); Total Protein 7.1 g/dL (6.3-8.2)
[2023-03-24 12:23] LABS: Urine Chlamydia NOT DETECTED; Urine N gonorrhoeae NOT DETECTED
[2023-03-24 12:38] VITALS: BP 134/84; PULSE 70; RESP 16; TEMP 36.9; O2SAT 98
== END 2023-03-24 12:57 | disposition home or self-care (01) ==
PROVIDERS: Emergency Provider Emergency Medicine; PCP Family Medicine
DX: R10.30 Lower abdominal pain, unspecified (principal); R11.2 Nausea with vomiting, unspecified
CPT/HCPCS: 80053; 81001; 81025; 85025; 87086; 87210; 87491; 87591; 99282; 99283

== ENCOUNTER 2023-03-31 10:59 | Emergency (ER) | payer OTHER, MEDICAID, SELFPAY | END 2023-03-31 11:13 | disposition left against medical advice (07) | PROVIDERS: Emergency Provider Emergency Medicine; PCP Family Medicine ==

== ENCOUNTER 2023-04-02 08:56 | Emergency (ER) | payer OTHER, MEDICAID, SELFPAY ==
[2023-04-02] VITALS (14 sets, daily range): BP systolic 113–165; BP diastolic 60–97; PULSE 55–96; RESP 18–29; TEMP 36.9; O2SAT 96–100; BMI 16.6
--- NOTE | 2023-04-02 09:26 | ED_ITS ---
HPI - Abdominal Pain General Chief Complaint: Abdominal Pain Stated Complaint: Vomiting T-2 /abd pain T-4/loss weight Time Seen by Provider: 04/02/23 09:01 Source: patient Mode of arrival: Ambulatory History of Present Illness HPI narrative: 22-year-old female daily smoker and daily user of cannabis presents with a chief complaint of 48 hours of persistent nausea and vomiting. Additionally she has upper abdominal discomfort. She denies any history of the same. She denies fever or chills. She states her pain is worse when she moves and improves with both rest and sometimes a warm shower. She denies any change in moving her bowels or urinary complaints. Related Data Previous Rx's Medication Instructions Recorded prenat.vits,ronen,[id number] 1 tab PO DAILY #30 tabs 07/16/21 acetaminophen 325 mg tablet 650 mg (2 x 325 mg) PO Q6HR PRN 03/08/22 Pain, Mild (1-3) #7 tabs ibuprofen 600 mg tablet 600 mg PO Q6HR PRN Pain, Mild 03/08/22 (1-3) #7 tabs lanolin (Purelan topical cream) 1 applic topical PRN PRN 03/08/22 Tenderness #7 grams blood sugar diagnostic (True #100 ea 03/11/22 Metrix Glucose Test Strip) blood-glucose meter (True Metrix #1 ea 03/11/22 Glucose Meter kit) norethindrone (contraceptive) 0.35 0.35 mg PO DAILY #28 tabs 04/17/ mg tablet (Ortho Micronor) ondansetron 4 mg disintegrating 4 mg PO Q8H PRN nausea and 03/24/23 tablet vomiting #20 tabs ondansetron 4 mg disintegrating 4 mg PO TID-QID PRN nausea and 04/02/23 tablet vomiting #10 tabs sulfamethoxazole 800 1 tab PO BID 7 days #14 tabs 04/02/23 mg-trimethoprim 160 mg tablet (Bactrim DS) Allergies Allergy/AdvReac Type Severity Reaction Status Date / Time amoxicillin Allergy Intermediate Verified 04/02/23 09:18 Penicillins Allergy Intermediate Verified 04/02/23 09:18 Review of Systems Review of Systems Narrative: GENERAL: Denies chills, fatigue, malaise, fever, sweats. HEENT: Denies sinus pain, ear pain, sore throat, difficulty swallowing, dizziness. RESPIRATORY: Denies dyspnea, cough, wheezing, hemoptysis, sputum. CARDIOVASCULAR: Denies chest pain, palpitations, orthopnea, edema, GASTROINTESTINAL: See HPI : Denies dysuria, frequency, incontinence, hematuria, urinary retention. MUSCULOSKELETAL: denies weakness, joint pain, or bony pain SKIN: Denies rash, skin lesions, or other NEUROLOGIC: Denies weakness, headache, numbness, change in speech, confusion, seizures, incoordination. PSYCHIATRIC: No concerning psychosocial issues. 12 point review of systems is negative except for those stated above Patient History Medical History Hyperemesis gravidarum History of drug use UTI (urinary tract infection) Borderline personality disorder Migraine Depression Anxiety Surgical History No history of previous surgery Social History marital status: unmarried,living together (engaged) number of children: 0 household members: significant other lives independently: Yes housing: apartment pets and animals: Yes (Cat - aware of toxoplasmosis) education level: high school (GED) occupational status: unemployed current occupational exposures/hazards: No special isabella needs: No seatbelt use: always water heater temp set < 120 deg: Yes (will check) working smoke detector in home: Yes fire extinguisher in home: No (will get) carbon monox detector in home: Yes firearms in home: Yes firearms unloaded and locked: Yes do you feel safe at home: Yes Smoking Status: Current every day smoker second hand exposure: Yes (occas) alcohol intake: former substance use type: former substance user and marijuana (cutting back) during the past year weight has: remained stable well-balanced diet: about half the time (poor appetite, uses Maijuana) daily servings fruits/ve-1 caffeine: No (limit to 200mg a day) 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 Thin, in moderate distress, complaining of pain, holding emesis bag HEAD: Atraumatic. Normocephalic. EYES: Pupils equal round and reactive. Extraocular motions intact. No scleral icterus. No injection or drainage. ENT: Nose without bleeding, purulent drainage. Throat without erythema, tonsillar hypertrophy or exudate. Airway patent. NECK: Trachea midline. Non tender CARDIOVASCULAR: Regular rate and rhythm without murmurs, gallops, or rubs. RESPIRATORY: Clear to auscultation. Breath sounds equal bilaterally. No wheezes, rales, or rhonchi. GASTROINTESTINAL: Abdomen soft, tender in the epigastrium, bowel sounds present nondistended. EXTREMITIES: No edema or joint tenderness. BACK: Nontender without deformity or crepitance. No flank tenderness. NEURO: AOx3. SKIN: No rash or erythema of visible areas Initial Vital Signs Initial Vital Signs: Vital Signs Temperature 98.4 F 04/02/23 09:12 Pulse Rate 96 H 04/02/23 09:12 Respiratory Rate 22 04/02/23 09:12 Blood Pressure 130/81 04/02/23 09:12 Pulse Oximetry 97 04/02/23 09:12 Oxygen Delivery Method Room Air 04/02/23 09:12 Course Orders Ordered: ED Orders 04/02/23 09:31 Complete Blood Count AUTO DIFF Stat Comprehensive Metabolic Panel Stat Lactate (Lactic Acid) Stat Lipase Stat 04/02/23 09:51 Blood Culture Stat 04/02/23 10:59 CT abdomen pelvis w con Stat 04/02/23 12:11 Urine Culture Stat 04/02/23 12:56 Urine Microscopic Stat Discontinued Medications Hydromorphone HCl (Hydromorphone 0.5 Mg Inj) 0.5 mg IV NOW ONE Stop: 04/02/23 11:00 Last Admin: 04/02/23 11:08 Dose: 0.5 mg Documented By: AMRashmi Sodium Chloride (Normal Saline 0.9%) 1,365 mls @ 455 mls/hr 30 ml/kg infuse over 3 hr (1365 ml) IV NOW ONE Stop: 04/02/23 12:26 Last Infusion: 04/02/23 13:41 Dose: Infused Documented By: Admin: 04/02/23 09:43 Dose: 455 mls/hr Documented By: MEAGHAN Sodium Chloride (Normal Saline 0.9%) 1,000 mls @ 1,000 mls/hr IV BOLUS ONE Stop: 04/02/23 14:28 Sodium Chloride (Normal Saline 0.9%) 1,000 mls @ 1,000 mls/hr IV BOLUS ONE Stop: 04/02/23 14:29 Ondansetron HCl (Ondansetron 4 Mg Odt) 4 mg PO NOW PRN PRN Reason: Nausea And Vomiting Ondansetron HCl (Ondansetron 4 Mg/2 Ml Inj) 4 mg IV NOW PRN PRN Reason: Nausea And Vomiting Last Admin: 04/02/23 09:43 Dose: 4 mg Documented By: MEAGHAN Pantoprazole Sodium (Pantoprazole 40 Mg Vial) 40 mg IV NOW ONE Stop: 04/02/23 11:00 Last Admin: 04/02/23 11:09 Dose: 40 mg Documented By: SILVIA Vital Signs Vital signs: Vital Signs - 8 hr 04/02/23 09:12 04/02/23 10:07 04/02/23 10:30 Temperature 98.4 F Pulse Rate 96 H 67 63 Respiratory Rate 22 25 H Blood Pressure 130/81 165/97 H Pulse Oximetry 97 99 98 Oxygen Delivery Method Room Air 04/02/23 11:00 04/02/23 11:12 04/02/23 11:12 Temperature Pulse Rate 66 66 Respiratory Rate 29 H Blood Pressure 132/88 Pulse Oximetry 100 100 Oxygen Delivery Method 04/02/23 11:30 04/02/23 11:30 04/02/23 11:45 Temperature Pulse Rate 55 L 63 Respiratory Rate 18 Blood Pressure 135/76 Pulse Oximetry 96 98 Oxygen Delivery Method 04/02/23 12:32 04/02/23 12:34 04/02/23 12:34 Temperature Pulse Rate 76 74 Respiratory Rate Blood Pressure 126/87 Pulse Oximetry 98 Oxygen Delivery Method 04/02/23 12:45 04/02/23 13:00 04/02/23 13:00 Temperature Pulse Rate 63 58 L Respiratory Rate Blood Pressure 125/77 Pulse Oximetry 98 98 Oxygen Delivery Method 04/02/23 13:15 04/02/23 13:30 04/02/23 13:30 Temperature Pulse Rate 59 L 61 Respiratory Rate Blood Pressure 113/60 Pulse Oximetry 98 99 Oxygen Delivery Method 04/02/23 13:45 Temperature Pulse Rate 58 L Respiratory Rate Blood Pressure Pulse Oximetry 98 Oxygen Delivery Method MDM - Abdominal Pain Lab Data 04/02/23 09:31 04/02/23 09:31 Labs: Lab Results 04/02/23 04/02/23 Range/Units 09:31 12:00 WBC 16.0 H (4.5-11.0) X10^3/uL RBC 5.09 (4.0-5.2) X10^6/uL Hgb 15.2 (12.0-16.0) g/dL Hct 45.3 (36-46) % MCV 88.9 (80-100) fL MCH 29.9 (26-34) PG MCHC 33.6 (30-36) % RDW 13.1 (11.6-14.8) % Plt Count 563 H (150-400) X10^3/uL Neut % (Auto) 79.7 H (50-75) % Lymph % (Auto) 11.1 L (25-40) % [place] % (Auto) 8.6 (3-14) % Eos % (Auto) 0.1 L (2-4) % Baso % (Auto) 0.5 (0-2) % Neut # (Auto) 99307 H (5919-0483) /uL Lymph # (Auto) 1800 (8268-8157) /uL [place] # (Auto) 1400 H (0-900) /uL Eos # (Auto) 0 (0-450) /uL Baso # (Auto) 100 (0-100) /uL Sodium 139 (137-145) mmol/L Potassium 3.7 (3.4-5.1) mmol/L Chloride 100 (98-107) mmol/L Carbon Dioxide 23 (22-32) mmol/L BUN 15 (7-17) mg/dL Creatinine 0.65 (0.52-1.04) mg/dL Estimated GFR > 60 (>60) mL/min BUN/Creatinine Ratio 23.1 H (6-22) Glucose 142 H (70-100) mg/dL Lactate 3.1 H 1.0 (0.7-2.1) mmol/L Calcium 10.6 H (8.4-10.2) mg/dL Total Bilirubin 1.2 (0.2-1.3) mg/dL AST 48 H (14-36) IU/L ALT 65 H (<35) IU/L Alkaline Phosphatase 53 (38-126) U/L Total Protein 9.4 H (6.3-8.2) g/dL Albumin 5.3 H (3.5-5.0) g/dL Globulin 4.1 (1.7-4.1) g/dL Albumin/Globulin Ratio 1.3 (1.0-2.8) Lipase 49 (23-300) U/L Point of care testing: Point of Care Testing Test Results Negative Urine Dip Bedside Urine Glucose Negative Bedside Urine Bilirubin - Negative Bedside Urine Ketone +/- 5 Urine Specific [place] 1.015 Bedside Urine Occult Blood +++ Bedside Urine pH 7.5 Bedside Urine Protein ++ 100 Bedside Urine Urobilinogen - Negative Bedside Urine Nitrite - Negative Bedside Urine Leukocytes ++ 125 Esterase MDM Narrative Medical decision making narrative: [22] year old patient presents with nausea, vomiting and abdominal pain Multiple etiologies for patient's symptoms considered including, but not limited to: [Bowel obstruction versus gallbladder disease versus pancreatitis versus cannabis hyperemesis versus other] Prior Charts reviewed in our EMR Primary Historian: patient Labs reviewed and interpreted by myself: Urine convincing for infectious process, elevated white blood cells with left shift, no signs of anemia, electrolytes, kidney function normal. Initial lactate elevated, returned to normal after fluids Imaging reviewed: CT Abd/Pelvis without acute pathology noted in the abdomen or pelvis Patient's history and physical exam reassuring, no evidence of any significant abnormality requiring hospitalization or surgical intervention. Multiple diagnoses considered as noted above. Imaging would suggest against any bowel obstruction or gallbladder disease. Pancreatitis considered but labs and imaging would suggest against this likelihood. Patient does daily use cannabis raising the question of possibility of cannabis hyperemesis syndrome. Also she is noted to have a UTI. Pain is well controlled, no signs of sepsis and tolerating orals Patient's symptoms improved over duration of stay with above-stated therapies. Findings and discharge diagnosis discussed with patient/family followed by verbalization of understanding Return precautions discussed with patient/family whom verbalize understanding of diagnosis and plan Discharge Plan Departure Patient Disposition: Home Clinical Impression: Vomiting, UTI (urinary tract infection) Instructions: DI for Urinary Tract Infection (UTI), DI for Abdominal Pain- Adult, DI for Vomiting -- Adult Activity Restrictions/Additional Instructions: *You have been diagnosed with [nausea and vomiting, urinary tract infection] *What to do: *Please continue to take your regular medications as directed. [x ] New medication prescriptions sent to your pharmacy: [[facility] ] [ ] New medication written as a paper prescription [ ] No new medications given *Please consider a clear liquid diet for the next 24-48 hours and then slowly advance to regular as tolerated. Also, try to avoid alcohol, nicotine, caffeine, spicy, acidic or fatty foods as this may worsen your symptoms *Please follow up with your primary care provider in 2-3 days, call for an appointment. Let them know you were seen in the Emergency Department and that we ask that you be seen in follow up. We will electronically transmit a record of today's note if your PCP is in our system *If you do not have a primary care provider please contact the [facility] Resource line at [phone]. They will ask some questions about your medical history and help get you set up with a doctor in the community. *Return to Emergency Department if you should have any new, worsening or concerning symptoms, such as [fever greater than 101 F, shaking chills, worsening pain, persistent vomiting or other bothersome symptoms] Prescriptions: New sulfamethoxazole-trimethoprim [Bactrim DS] 800-160 mg tablet 1 tab PO BID 7 Days Qty: 14 0RF ondansetron 4 mg tablet,disintegrating 4 mg PO TID-QID PRN (Reason: nausea and vomiting) Qty: 10 0RF No Action (DME) blood-glucose meter [True Metrix Glucose Meter] Kit See Rx Instructions .Route Qty: 1 0RF Rx Instructions: Use to check glucose twice daily (DME) True Metrix Glucose Test Strip Strip See Rx Instructions .Route Qty: 100 1RF Rx Instructions: Use 1 new strip to check glucose twice daily norethindrone (contraceptive) [Ortho Micronor] 0.35 mg tablet 0.35 mg PO DAILY Qty: 28 12RF prenat.vits,ronen,[id number] Tablet 1 tab PO DAILY Qty: 30 0RF ondansetron 4 mg tablet,disintegrating 4 mg PO Q8H PRN (Reason: nausea and vomiting) Qty: 20 0RF acetaminophen 325 mg Tablet 650 mg PO Q6HR PRN (Reason: Pain, Mild (1-3)) Qty: 7 0RF ibuprofen 600 mg Tablet 600 mg PO Q6HR PRN (Reason: Pain, Mild (1-3)) Qty: 7 0RF Purelan Cream 1 applic topical PRN PRN (Reason: Tenderness) Qty: 7 0RF Referrals: Dar Salomon MD [Primary Care Provider] - Stand Alone Forms: Patient Portal/API
[2023-04-02] MEDS: SODIUM CHLORIDE 0.9% 1,365 ML 455 ML IV (09:43)
[2023-04-02] MEDS: ONDANSETRON 4 MG/2 ML INJ IV (09:43)
[2023-04-02 09:49] LABS: Add Manual Diff / Slide Review NO; Basophils Absolute Auto 100 /uL (0-100); Basophils Percent Auto 0.5 % (0-2); Eosinophils Absolute Auto 0 /uL (0-450); Eosinophils Percent Auto 0.1 % (2-4); Hematocrit 45.3 % (36-46); Hemoglobin 15.2 g/dL (12.0-16.0); Lymphocytes Absolute Auto 1800 /uL (1100-4500); Lymphocytes Percent Auto 11.1 % (25-40); Mean Corpuscular HGB Conc 33.6 % (30-36); Mean Corpuscular Hemoglobin 29.9 PG (26-34); Mean Corpuscular Volume 88.9 fL (80-100); Monocytes Absolute Auto 1400 /uL (0-900); Monocytes Percent Auto 8.6 % (3-14); Neutrophils Absolute Auto 12700 /uL (1500-7000); Neutrophils Percent Auto 79.7 % (50-75); Platelet Count 563 X10^3/uL (150-400); Red Blood Cell Count 5.09 X10^6/uL (4.0-5.2); Red Cell Distribution Width 13.1 % (11.6-14.8)
[2023-04-02 10:12] LABS: Lactate (Lactic Acid) 3.1 mmol/L (0.7-2.1)
[2023-04-02 10:13] LABS: Alanine Aminotransferase 65 IU/L (<35); Albumin 5.3 g/dL (3.5-5.0); Albumin Globulin Ratio 1.3 (1.0-2.8); Alkaline Phosphatase 53 U/L (38-126); Aspartate Aminotransferase 48 IU/L (14-36); BUN Creatinine Ratio 23.1 (6-22); Bilirubin Total 1.2 mg/dL (0.2-1.3); Blood Urea Nitrogen 15 mg/dL (7-17); Calcium 10.6 mg/dL (8.4-10.2); Carbon Dioxide 23 mmol/L (22-32); Chloride 100 mmol/L (98-107); Estimated Glomerular Filt Rate > 60 mL/min (>60); Globulin 4.1 g/dL (1.7-4.1); Glucose 142 mg/dL (70-100); HEMOLYSIS < 15 (0-50); Lipase 49 U/L (23-300); Potassium 3.7 mmol/L (3.4-5.1); Sodium 139 mmol/L (137-145); Total Protein 9.4 g/dL (6.3-8.2)
--- NOTE | 2023-04-02 10:59 | DI.CT.S_ITS ---
PROCEDURE: CT ABDOMEN PELVIS W CON INDICATIONS: abdominal pain, N/V TECHNIQUE: After the administration of intravenous contrast, axial sections acquired from the lung bases to the pubic symphysis. Coronal and sagittal reformats were performed. For radiation dose reduction, the following was used: automated exposure control, adjustment of mA and/or kV according to patient size. COMPARISON: None. FINDINGS: Image quality: Excellent. Lung bases: Unremarkable. Heart: No significant findings. ABDOMEN: Liver: Unremarkable. Gallbladder: Unremarkable. Biliary ducts: Unremarkable. Pancreas: Unremarkable. Spleen: Unremarkable. Adrenal Glands: Unremarkable. Kidneys and Ureters: Symmetric enhancement with no hydronephrosis or nephrolithiasis bilaterally. Stomach and Bowel: Stomach is grossly normal. Small and large bowel is normal in caliber, without obstruction. Normal appendix (2/53). No pneumatosis, pneumoperitoneum or portal venous gas Peritoneum: No abnormal intraperitoneal fluid. No free air. Ventral Wall: No hernias. Abdominal Nodes: No retroperitoneal or mesenteric adenopathy by size criteria. Vessels: Aorta and inferior vena cava are normal in size. Proximal mesenteric vessels are patent. Patent hepatic veins, portal vein, splenic vein and bilateral renal veins. PELVIS: Pelvic Organs: Unremarkable. Bladder: Decompressed, limiting evaluation, with no focal wall thickening or contour abnormality. Pelvic Nodes: No enlarged lymph nodes. Miscellaneous: No hernias are seen. Bones: No acute fractures. No aggressive appearing lytic or blastic osseous lesions. Vertebral body height and disc spaces are maintained. IMPRESSION: No acute pathology in the abdomen or pelvis. Dictated by: Morgan Sevilla M.D. on 04/02/2023 at 12:51 Approved by: Morgan Sevilla M.D. on 04/02/2023 at 12:56
[2023-04-02] MEDS: HYDROMORPHONE 0.5 MG INJ IV (11:08)
[2023-04-02] MEDS: PANTOPRAZOLE 40 MG VIAL IV (11:09)
[2023-04-02 11:45] LABS: Reflexed Lactate in 2 Hours Y
== END 2023-04-02 13:50 | disposition home or self-care (01) ==
PROVIDERS: Emergency Provider Emergency Medicine; PCP Family Medicine
DX: N39.0 Urinary tract infection, site not specified (principal); R10.10 Upper abdominal pain, unspecified; R11.2 Nausea with vomiting, unspecified
CPT/HCPCS: 36415; 74177; 80053; 81003; 81025; 83605; 83690; 85025; 87040; 87086; 87147; 96361; 96374; 96375; 99284; C9113; J1170; J2405

== ENCOUNTER 2023-04-03 14:59 | Emergency (ER) | payer OTHER, MEDICAID, SELFPAY ==
[2023-04-03] MEDS: SODIUM CHLORIDE 0.9% 1,000 ML 1000 ML IV (14:40)
[2023-04-03 15:03] VITALS: BP 137/84; PULSE 65; O2SAT 100
[2023-04-03 15:10] VITALS: BP 137/84; PULSE 64; RESP 18; TEMP 38.1; O2SAT 98; BMI 16.6
[2023-04-03] MEDS: METOCLOPRAMIDE 10 MG/2 ML INJ IV (15:27)
[2023-04-03] MEDS: ACETAMINOPHEN IV 1,000 MG/100 ML VIAL 400 MG IV (15:28)
[2023-04-03 15:30] VITALS: BP 126/75; PULSE 66; O2SAT 97
--- NOTE | 2023-04-03 15:33 | ED.NAVMDI ---
HPI - Nausea/Vomiting/Diarrhea General Chief complaint: Nausea/Vomiting/Diarrhea Stated complaint: ABD pain N/V Time Seen by Provider: 04/03/23 15:31 Source: patient and EMS Mode of arrival: EMS Limitations: no limitations History of Present Illness HPI Narrative: This is a 22-year-old female seen yesterday with chronic tobacco and cannabis use. Patient is seen yesterday for 48 hours persistent nausea and vomiting some abdominal pain. She had labs, imaging including CT and is found to have possible UTI. Urine culture is still pending. Patient states she tried the Zofran she was able to get 1 dose of Bactrim in but not the rest. She is since then had some persistent vomiting. Patient denies fevers, she is feeling much better after a dose of Reglan. She denies chest pain shortness of breath. No other diarrhea constipation. States pain is only when she vomits. Patient and I discussed further workup but her employment coordinator is no longer available and she has to leave. We reviewed her findings from today, she feels much better after Reglan and discuss changing her Zofran to Reglan. We discussed her urine culture still pending but if she is having persistent symptoms she should return for further workup. Patient feels quite agreeable to this plan. Related Data Previous Rx's Medication Instructions Recorded prenat.vits,ronen,ezc-reis-lcbjo 1 tab PO DAILY #30 tabs 07/16/21 acetaminophen 325 mg tablet 650 mg (2 x 325 mg) PO Q6HR PRN 03/08/22 Pain, Mild (1-3) #7 tabs ibuprofen 600 mg tablet 600 mg PO Q6HR PRN Pain, Mild 03/08/22 (1-3) #7 tabs lanolin (Purelan topical cream) 1 applic topical PRN PRN 03/08/22 Tenderness #7 grams blood sugar diagnostic (True #100 ea 03/11/22 Metrix Glucose Test Strip) blood-glucose meter (True Metrix #1 ea 03/11/22 Glucose Meter kit) norethindrone (contraceptive) 0.35 0.35 mg PO DAILY #28 tabs 04/17/22 mg tablet (Ortho Micronor) ondansetron 4 mg disintegrating 4 mg PO Q8H PRN nausea and 03/24/23 tablet vomiting #20 tabs ondansetron 4 mg disintegrating 4 mg PO TID-QID PRN nausea and 04/02/23 tablet vomiting #10 tabs sulfamethoxazole 800 1 tab PO BID 7 days #14 tabs 04/02/23 mg-trimethoprim 160 mg tablet (Bactrim DS) metoclopramide HCl 10 mg tablet 10 mg PO Q6H PRN nausea and 04/03/23 (Reglan) vomiting #10 tabs Allergies Allergy/AdvReac Type Severity Reaction Status Date / Time amoxicillin Allergy Intermediate Verified 04/02/23 09:18 Penicillins Allergy Intermediate Verified 04/02/23 09:18 Review of Systems Review of Systems ROS Unobtainable: All systems reviewed & are unremarkable except as noted in HPI and below Patient History Medical History Hyperemesis gravidarum History of drug use UTI (urinary tract infection) Borderline personality disorder Migraine Depression Anxiety Surgical History No history of previous surgery Social History marital status: unmarried,living together (engaged) number of children: 0 household members: significant other lives independently: Yes housing: apartment pets and animals: Yes (Cat - aware of toxoplasmosis) education level: high school (GED) occupational status: unemployed current occupational exposures/hazards: No special isabella needs: No seatbelt use: always water heater temp set < 120 deg: Yes (will check) working smoke detector in home: Yes fire extinguisher in home: No (will get) carbon monox detector in home: Yes firearms in home: Yes firearms unloaded and locked: Yes do you feel safe at home: Yes Smoking Status: Current every day smoker second hand exposure: Yes (occas) alcohol intake: former substance use type: former substance user and marijuana (cutting back) during the past year weight has: remained stable well-balanced diet: about half the time (poor appetite, uses Maijuana) daily servings fruits/ve-1 caffeine: No (limit to 200mg a day) 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 RESPIRATORY: Breath sounds equal bilaterally, no wheezes rales or rhonchi. ABDOMEN: Soft, nontender. Nondistended. Normoactive bowel sounds all 4 quadrants. No guarding or rebound, rigidity, no mass : No CVA tenderness EXTREMITIES: Normal range of motion, no clubbing or edema. Neurovascularly intact NEUROLOGICAL: Cranial nerves II through XII grossly intact. Moving all extremities SKIN: Warm, dry, no petechiae, no rashes or lesions. Initial Vital Signs Initial Vital Signs: Vital Signs Pulse Rate 65 04/03/23 15:03 Blood Pressure 137/84 04/03/23 15:03 Pulse Oximetry 100 04/03/23 15:03 Course Orders Ordered: ED Orders 04/03/23 15:08 Complete Blood Count AUTO DIFF Stat 04/03/23 15:45 Comprehensive Metabolic Panel Stat Lactate (Lactic Acid) Stat Procalcitonin Stat 04/03/23 16:29 Urine Microscopic Stat Discontinued Medications Acetaminophen (Ofirmev) 1,000 mg in 100 mls @ 400 mls/hr IV NOW ONE Stop: 04/03/23 15:38 Last Infusion: 04/03/23 15:52 Dose: Infused Documented By: Admin: 04/03/23 15:28 Dose: 400 mls/hr Documented By: TEP Sodium Chloride (Normal Saline 0.9%) 1,000 mls @ 1,000 mls/hr IV BOLUS ONE Stop: 04/03/23 16:30 Last Infusion: 04/03/23 15:40 Dose: Infused Documented By: Admin: 04/03/23 14:40 Dose: 1,000 mls/hr Documented By: RB Metoclopramide HCl (Metoclopramide 10 Mg/2 Ml Inj) 10 mg IV NOW ONE Stop: 04/03/23 15:22 Last Admin: 04/03/23 15:27 Dose: 10 mg Documented By: TEP Vital Signs Vital signs: Vital Signs - 8 hr 04/03/23 15:03 04/03/23 15:03 04/03/23 15:10 Temperature 100.5 F H Pulse Rate 65 64 Respiratory Rate 18 Blood Pressure 137/84 137/84 Pulse Oximetry 100 98 Oxygen Delivery Method Room Air 04/03/23 15:30 04/03/23 15:30 04/03/23 16:50 Temperature 98.7 F Pulse Rate 66 86 Respiratory Rate 18 Blood Pressure 126/75 136/78 Pulse Oximetry 97 98 Oxygen Delivery Method MDM - Nausea/Vomiting/Diarrhea Lab Data 04/03/23 15:08 04/03/23 15:45 Labs: Lab Results 04/03/23 04/03/23 04/03/23 Range/Units 15:08 15:45 16:29 WBC 11.2 H (4.5-11.0) X10^3/uL RBC 4.49 (4.0-5.2) X10^6/uL Hgb 13.6 (12.0-16.0) g/dL Hct 39.9 (36-46) % MCV 88.7 (80-100) fL MCH 30.4 (26-34) PG MCHC 34.2 (30-36) % RDW 12.9 (11.6-14.8) % Plt Count 464 H (150-400) X10^3/uL Neut % (Auto) 80.9 H (50-75) % Lymph % (Auto) 9.4 L (25-40) % [place] % (Auto) 9.0 (3-14) % Eos % (Auto) 0.1 L (2-4) % Baso % (Auto) 0.6 (0-2) % Neut # (Auto) 9100 H (9086-7088) /uL Lymph # (Auto) 1100 (2379-5858) /uL [place] # (Auto) 1000 H (0-900) /uL Eos # (Auto) 0 (0-450) /uL Baso # (Auto) 100 (0-100) /uL Sodium 134 L (137-145) mmol/L Potassium 3.6 (3.4-5.1) mmol/L Chloride 105 (98-107) mmol/L Carbon Dioxide 22 (22-32) mmol/L BUN 11 (7-17) mg/dL Creatinine 0.67 (0.52-1.04) mg/dL Estimated GFR > 60 (>60) mL/min BUN/Creatinine Ratio 16.4 (6-22) Glucose 99 (70-100) mg/dL Lactate 1.0 (0.7-2.1) mmol/L Calcium 8.4 (8.4-10.2) mg/dL Total Bilirubin 0.8 (0.2-1.3) mg/dL AST 28 (14-36) IU/L ALT 39 H (<35) IU/L Alkaline Phosphatase 39 (38-126) U/L Total Protein 6.6 (6.3-8.2) g/dL Albumin 4.0 (3.5-5.0) g/dL Globulin 2.6 (1.7-4.1) g/dL Albumin/Globulin Ratio 1.5 (1.0-2.8) Procalcitonin < 0.03 (<0.5) ng/mL Urine RBC None seen (0-5/HPF) Urine WBC 0-1/hpf (0-5/HPF) Ur Squamous Epith Cells 0-1 /hpf (0-5/HPF) Urine Bacteria Occasional (0-1) (None) Ur Culture Indicated? Cult not indicated Point of Care Testing Test Results Negative Urine Dip Bedside Urine Glucose Negative Bedside Urine Bilirubin - Negative Bedside Urine Ketone ++ 40 Urine Specific [place] 1.015 Bedside Urine Occult Blood +/- Bedside Urine pH 6.0 Bedside Urine Protein - Negative Bedside Urine Urobilinogen - Negative Bedside Urine Nitrite - Negative Bedside Urine Leukocytes - Negative Esterase MDM Narrative Medical decision making narrative: 22-year-old female presents with persistent nausea and vomiting had some improvement with Zofran was able to take 1 dose oral antibiotic for suspected UTI but does also use cannabis regularly. Her labs today appear improved from prior, her urine sample from yesterday culture has been reintubated but has not resulted. Blood cultures so far have been negative. Patient's did have a fever here this evening but was not tachycardic or hypotensive. You are just little bit of blood and ketones but no signs of infection on dip. Urine is negative. Discussed with patient her CT findings from yesterday she feels much better after fluids and a dose of Reglan, she states she has to go with this time she can not do any additional workup is her employment coordinator has told her they can no longer watch her children and are going to leave them alone. She would like a prescription for Reglan and we discussed return precautions if she is continuing to feel improved after the medications and able to keep down her antibiotics can follow-up she is getting worse she needs to return. Discharge Plan Departure Patient Disposition: Home Clinical Impression: Nausea & vomiting Activity Restrictions/Additional Instructions: Please follow-up for recheck if your symptoms are not continuing to improve over the next 24-48 hours. Your labs appear improved today but your urine culture has not resulted. You can try Reglan instead of Zofran, you can take 1 tablet every 6 hours as needed. Prescription sent to [facility] in [place]. Feel free to return if you are having persistent symptoms fevers, new or worsening abdominal back or flank pain, persistent vomiting, black or bloody stools or other new or concerning changes. Prescriptions: New metoclopramide HCl [Reglan] 10 mg tablet 10 mg PO Q6H PRN (Reason: nausea and vomiting) Qty: 10 0RF No Action (DME) blood-glucose meter [True Metrix Glucose Meter] Kit See Rx Instructions .Route Qty: 1 0RF Rx Instructions: Use to check glucose twice daily (DME) True Metrix Glucose Test Strip Strip See Rx Instructions .Route Qty: 100 1RF Rx Instructions: Use 1 new strip to check glucose twice daily norethindrone (contraceptive) [Ortho Micronor] 0.35 mg tablet 0.35 mg PO DAILY Qty: 28 12RF prenat.vits,ronen,[id number] Tablet 1 tab PO DAILY Qty: 30 0RF ondansetron 4 mg tablet,disintegrating 4 mg PO Q8H PRN (Reason: nausea and vomiting) Qty: 20 0RF sulfamethoxazole-trimethoprim [Bactrim DS] 800-160 mg tablet 1 tab PO BID 7 Days Qty: 14 0RF ondansetron 4 mg tablet,disintegrating 4 mg PO TID-QID PRN (Reason: nausea and vomiting) Qty: 10 0RF acetaminophen 325 mg Tablet 650 mg PO Q6HR PRN (Reason: Pain, Mild (1-3)) Qty: 7 0RF ibuprofen 600 mg Tablet 600 mg PO Q6HR PRN (Reason: Pain, Mild (1-3)) Qty: 7 0RF Purelan Cream 1 applic topical PRN PRN (Reason: Tenderness) Qty: 7 0RF Referrals: Dar Salomon MD [Primary Care Provider] - Stand Alone Forms: Patient Portal/API
[2023-04-03 15:42] LABS: Add Manual Diff / Slide Review NO; Basophils Absolute Auto 100 /uL (0-100); Basophils Percent Auto 0.6 % (0-2); Eosinophils Absolute Auto 0 /uL (0-450); Eosinophils Percent Auto 0.1 % (2-4); Hematocrit 39.9 % (36-46); Hemoglobin 13.6 g/dL (12.0-16.0); Lymphocytes Absolute Auto 1100 /uL (1100-4500); Lymphocytes Percent Auto 9.4 % (25-40); Mean Corpuscular HGB Conc 34.2 % (30-36); Mean Corpuscular Hemoglobin 30.4 PG (26-34); Mean Corpuscular Volume 88.7 fL (80-100); Monocytes Absolute Auto 1000 /uL (0-900); Neutrophils Absolute Auto 9100 /uL (1500-7000); Neutrophils Percent Auto 80.9 % (50-75); Platelet Count 464 X10^3/uL (150-400); Red Blood Cell Count 4.49 X10^6/uL (4.0-5.2); Red Cell Distribution Width 12.9 % (11.6-14.8); White Blood Cell Count 11.2 X10^3/uL (4.5-11.0)
[2023-04-03 16:13] LABS: Alanine Aminotransferase 39 IU/L (<35); Albumin Globulin Ratio 1.5 (1.0-2.8); Alkaline Phosphatase 39 U/L (38-126); Aspartate Aminotransferase 28 IU/L (14-36); BUN Creatinine Ratio 16.4 (6-22); Bilirubin Total 0.8 mg/dL (0.2-1.3); Blood Urea Nitrogen 11 mg/dL (7-17); Calcium 8.4 mg/dL (8.4-10.2); Carbon Dioxide 22 mmol/L (22-32); Chloride 105 mmol/L (98-107); Estimated Glomerular Filt Rate > 60 mL/min (>60); Globulin 2.6 g/dL (1.7-4.1); Glucose 99 mg/dL (70-100); HEMOLYSIS < 15 (0-50); Potassium 3.6 mmol/L (3.4-5.1); Sodium 134 mmol/L (137-145); Total Protein 6.6 g/dL (6.3-8.2)
[2023-04-03 16:30] LABS: Procalcitonin < 0.03 ng/mL (<0.5)
[2023-04-03 16:49] LABS: Bacteria Urine Occasional (0-1); RBC Urine None Seen (0-5/HPF); Squamous Epithelial Cell Urine 0-1 /HPF (0-5/HPF); WBC Urine 0-1/HPF (0-5/HPF)
[2023-04-03 16:50] VITALS: BP 136/78; PULSE 86; RESP 18; TEMP 37.1; O2SAT 98
[2023-04-03 16:50] LABS: Culture Indicated Urine Cult Not Indicated
== END 2023-04-03 16:53 | disposition home or self-care (01) ==
PROVIDERS: Emergency Provider Emergency Medicine; PCP Family Medicine
DX: R11.2 Nausea with vomiting, unspecified (principal); R50.9 Fever, unspecified
CPT/HCPCS: 36415; 80053; 81003; 81015; 81025; 83605; 84145; 85025; 96365; 96375; 99284; J0131; J2765

== ENCOUNTER 2023-04-04 07:15 | Emergency (ER) | payer OTHER, MEDICAID, SELFPAY ==
[2023-04-04 07:29] VITALS: BP 144/89; PULSE 69; RESP 17; TEMP 37.1; O2SAT 100; BMI 16.6
[2023-04-04 07:32] VITALS: BP 144/89; PULSE 68; O2SAT 100
--- NOTE | 2023-04-04 07:43 | ED_ITS ---
HPI - Nausea/Vomiting/Diarrhea General Chief complaint: Nausea/Vomiting/Diarrhea Stated complaint: cant stop throwing up 20hrs/ abd pain Time Seen by Provider: 04/04/23 07:42 Source: patient Mode of arrival: Wheelchair History of Present Illness HPI Narrative: 22-year-old female seen the day prior and the day prior to that with chronic tobacco and cannabis use. Patient has now had about 3 days of intermittent nausea and vomiting sometimes abdominal pain. She was feeling improved in between each visit she received Reglan which she found very helpful yesterday but was unable to fill it to have any additional doses at home overnight. She was doing well until about 4:00 a.m. and then started having symptoms again. Urine culture does show less than 10,000 Streptococcus B discussed changing her oral antibiotic but also discussed her cannabis use. Patient denies fevers, denies pain currently, she states she was feeling much improved about 4:00 a.m. this morning. No blood in her emesis. No black or bloody stools. Patient is requesting to leave at this time. Related Data Previous Rx's Medication Instructions Recorded prenat.vits,ronen,evk-ivzo-vngni 1 tab PO DAILY #30 tabs 07/16/21 acetaminophen 325 mg tablet 650 mg (2 x 325 mg) PO Q6HR PRN 03/08/22 Pain, Mild (1-3) #7 tabs ibuprofen 600 mg tablet 600 mg PO Q6HR PRN Pain, Mild 03/08/22 (1-3) #7 tabs lanolin (Purelan topical cream) 1 applic topical PRN PRN 03/08/22 Tenderness #7 grams blood sugar diagnostic (True #100 ea 03/11/22 Metrix Glucose Test Strip) blood-glucose meter (True Metrix #1 ea 03/11/22 Glucose Meter kit) norethindrone (contraceptive) 0.35 0.35 mg PO DAILY #28 tabs 04/17/22 mg tablet (Ortho Micronor) ondansetron 4 mg disintegrating 4 mg PO Q8H PRN nausea and 03/24/23 tablet vomiting #20 tabs ondansetron 4 mg disintegrating 4 mg PO TID-QID PRN nausea and 04/02/23 tablet vomiting #10 tabs sulfamethoxazole 800 1 tab PO BID 7 days #14 tabs 04/02/23 mg-trimethoprim 160 mg tablet (Bactrim DS) metoclopramide HCl 10 mg tablet 10 mg PO Q6H PRN nausea and 04/03/23 (Reglan) vomiting #10 tabs cephalexin 500 mg capsule 500 mg PO BID #14 caps 04/04/23 Allergies Allergy/AdvReac Type Severity Reaction Status Date / Time amoxicillin Allergy Intermediate Verified 04/02/23 09:18 Penicillins Allergy Intermediate Verified 04/02/23 09:18 Review of Systems Review of Systems ROS Unobtainable: All systems reviewed & are unremarkable except as noted in HPI and below Patient History Medical History Hyperemesis gravidarum History of drug use UTI (urinary tract infection) Borderline personality disorder Migraine Depression Anxiety Surgical History No history of previous surgery Social History marital status: unmarried,living together (engaged) number of children: 0 household members: significant other lives independently: Yes housing: apartment pets and animals: Yes (Cat - aware of toxoplasmosis) education level: high school (GED) occupational status: unemployed current occupational exposures/hazards: No special isabella needs: No seatbelt use: always water heater temp set < 120 deg: Yes (will check) working smoke detector in home: Yes fire extinguisher in home: No (will get) carbon monox detector in home: Yes firearms in home: Yes firearms unloaded and locked: Yes do you feel safe at home: Yes Smoking Status: Current every day smoker second hand exposure: Yes (occas) alcohol intake: former substance use type: former substance user and marijuana (cutting back) during the past year weight has: remained stable well-balanced diet: about half the time (poor appetite, uses Maijuana) daily servings fruits/ve-1 caffeine: No (limit to 200mg a day) 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 No diaphoresis. HEENT: Head normocephalic, atraumatic, EOMI, pupils reactive, face symmetric, moist mucous membranes NECK: Supple, full range of motion CARDIOVASCULAR: Regular rate and rhythm without murmurs, rubs or gallops. RESPIRATORY: Breath sounds equal bilaterally, no wheezes rales or rhonchi. ABDOMEN: Soft, nontender. Nondistended. Normoactive bowel sounds all 4 quadrants. No guarding or rebound, rigidity, no mass, patient appear nauseated. : No CVA tenderness EXTREMITIES: Normal range of motion, no clubbing or edema. Neurovascularly intact NEUROLOGICAL: Cranial nerves II through XII grossly intact. Moving all extremities, normal gait. SKIN: Warm, dry, no petechiae, no rashes or lesions. Initial Vital Signs Initial Vital Signs: Vital Signs Temperature 98.7 F 04/04/23 07:29 Pulse Rate 69 04/04/23 07:29 Respiratory Rate 17 04/04/23 07:29 Blood Pressure 144/89 H 04/04/23 07:29 Pulse Oximetry 100 04/04/23 07:29 Oxygen Delivery Method Room Air 04/04/23 07:29 Course Orders Ordered: ED Orders 04/04/23 07:35 Complete Blood Count AUTO DIFF Stat Comprehensive Metabolic Panel Stat Lipase Stat 04/04/23 07:42 XR abdomen 3V Stat UA Complete [Urinalysis and Microscopic] Stat Urine Culture Stat Urine Drug Screen, Rapid Stat Discontinued Medications Sodium Chloride (Normal Saline 0.9%) 1,000 mls @ 1,000 mls/hr IV BOLUS ONE Stop: 04/04/23 08:41 Last Infusion: 04/04/23 09:00 Dose: Infused Documented By: Admin: 04/04/23 07:49 Dose: 1,000 mls/hr Documented By: RB Ketorolac Tromethamine (Ketorolac 30 Mg/Ml Vial) 15 mg IV NOW ONE Stop: 04/04/23 09:13 Last Admin: 04/04/23 09:18 Dose: 15 mg Documented By: RB Metoclopramide HCl (Metoclopramide 10 Mg/2 Ml Inj) 10 mg IV NOW ONE Stop: 04/04/23 07:43 Last Admin: 04/04/23 07:48 Dose: 10 mg Documented By: RB Ondansetron HCl (Ondansetron 4 Mg Odt) 4 mg SL NOW PRN PRN Reason: Nausea And Vomiting Ondansetron HCl (Ondansetron 4 Mg/2 Ml Inj) 4 mg IV NOW PRN PRN Reason: Nausea And Vomiting Vital Signs Vital signs: Vital Signs - 8 hr 04/04/23 07:29 04/04/23 07:32 04/04/23 07:32 Temperature 98.7 F Pulse Rate 69 68 Respiratory Rate 17 Blood Pressure 144/89 H 144/89 H Pulse Oximetry 100 100 Oxygen Delivery Method Room Air 04/04/23 08:00 04/04/23 08:00 04/04/23 08:31 Temperature Pulse Rate 66 87 Respiratory Rate Blood Pressure 139/90 Pulse Oximetry 96 96 Oxygen Delivery Method 04/04/23 09:12 04/04/23 09:22 04/04/23 09:22 Temperature Pulse Rate 76 67 Respiratory Rate Blood Pressure 151/84 H Pulse Oximetry 97 98 Oxygen Delivery Method MDM - Nausea/Vomiting/Diarrhea Lab Data 04/04/23 07:35 04/04/23 07:35 Labs: Lab Results 04/04/23 04/04/23 Range/Units 07:35 07:42 WBC 14.7 H (4.5-11.0) X10^3/uL RBC 4.47 (4.0-5.2) X10^6/uL Hgb 13.4 (12.0-16.0) g/dL Hct 39.5 (36-46) % MCV 88.5 (80-100) fL MCH 30.0 (26-34) PG MCHC 33.9 (30-36) % RDW 12.7 (11.6-14.8) % Plt Count 527 H (150-400) X10^3/uL Neut % (Auto) 84.7 H (50-75) % Lymph % (Auto) 5.5 L (25-40) % [place] % (Auto) 7.2 (3-14) % Eos % (Auto) 0.6 L (2-4) % Baso % (Auto) 2.0 (0-2) % Neut # (Auto) 47012 H (6664-0635) /uL Lymph # (Auto) 800 L (2531-3516) /uL [place] # (Auto) 1100 H (0-900) /uL Eos # (Auto) 100 (0-450) /uL Baso # (Auto) 300 H (0-100) /uL Sodium 135 L (137-145) mmol/L Potassium 3.1 L (3.4-5.1) mmol/L Chloride 101 (98-107) mmol/L Carbon Dioxide 21 L (22-32) mmol/L BUN 10 (7-17) mg/dL Creatinine 0.73 (0.52-1.04) mg/dL Estimated GFR > 60 (>60) mL/min BUN/Creatinine Ratio 13.7 (6-22) Glucose 113 H (70-100) mg/dL Calcium 9.8 (8.4-10.2) mg/dL Total Bilirubin 0.8 (0.2-1.3) mg/dL AST 29 (14-36) IU/L ALT 38 H (<35) IU/L Alkaline Phosphatase 43 (38-126) U/L Total Protein 7.7 (6.3-8.2) g/dL Albumin 4.7 (3.5-5.0) g/dL Globulin 3.0 (1.7-4.1) g/dL Albumin/Globulin Ratio 1.6 (1.0-2.8) Lipase 53 (23-300) U/L Urine Color Yellow Urine Appearance Cloudy Urine pH 7.5 (4.5-8.0) Ur Specific [place] 1.025 (1.000-1.035) Urine Protein Negative (Negative) Urine Glucose (UA) Negative (Negative) g/dL Urine Ketones 1+ H (NEGATIVE) Urine Occult Blood 1+ H (Negative) Urine Nitrate Negative (Negative) Urine Bilirubin Negative (NEGATIVE) Urine Urobilinogen 0.2 (0.2) E.U./dL Ur Leukocyte Esterase Negative (NEGATIVE) Urine RBC 0-1/hpf (0-5/HPF) Urine WBC None seen (0-5/HPF) Ur Squamous Epith Cells 5-10 /hpf H (0-5/HPF) Amorphous Sediment 3+ Urine Bacteria Few (2-10) H (None) Ur Culture Indicated? Specimen cultured U Opiates 300ng/mL cut Positive H (Negative) Ur Oxycodone Screen Negative (Negative) Urine Methadone Screen Negative (Negative) Ur Barbiturates Screen Negative (Negative) U Tricyclic Antidepress Negative (Negative) Ur Phencyclidine Scrn Negative (Negative) Ur Amphetamines Screen Negative (Negative) U Methamphetamines Scrn Negative (Negative) Ur MDMA Scrn (Ecstasy) Negative (Negative) U Benzodiazepines Scrn Positive H (Negative) Urine Cocaine Screen Negative (Negative) U Marijuana (THC) Screen Positive H (Negative) Point of Care Testing Test Results Negative Urine Dip Bedside Urine Glucose Negative Bedside Urine Bilirubin - Negative Bedside Urine Ketone + 15 Urine Specific [place] 1.015 Bedside Urine Occult Blood + Bedside Urine pH 7.5 Bedside Urine Protein +/- 15 Bedside Urine Urobilinogen - Negative Bedside Urine Nitrite - Negative Bedside Urine Leukocytes - Negative Esterase Imaging Data Abdominal x-ray: Radiologist's Impression: [address] [address] XRay Report Signed Patient: Idania Peres MR#: [id number] : 2000 Acct:[id number] Age/Sex: 22 / F Date of Service: 04/04/23 Loc: ED Accession Number: [id number] Procedure: XR abdomen 3V Ordering Provider: Yusra Franklin D.O. PROCEDURE: XR ABDOMEN 3V INDICATIONS: vomiting TECHNIQUE: One view chest and two views of the abdomen were acquired. COMPARISON: None. FINDINGS: Surgical changes and devices: None. Chest: Lungs are clear. Heart size is normal. No pleural effusions. No pneumoperitoneum. Abdomen: Bowel gas pattern is normal. No suspicious calcifications. Visualized solid organ contours appear normal. Bones: No suspicious bony lesions. IMPRESSION: Nonobstructive bowel gas pattern. Dictated by: Dave Flores M.D. on 04/04/2023 at 8:40 Approved by: Dave Flores M.D. on 04/04/2023 at 8:41 [facility] Narrative Medical decision making narrative: 22-year-old female who returns for persistent vomiting. Patient was not able to fill the prescription for antinausea medication last night the pharmacy had closed before she could get there she states she did very well until 4:00 a.m. in the morning then symptoms returned. She did have repeat labs, her urine culture shows less than 10,000 group B Streptococcus from 04/02/2023 we will go ahead and change her antibiotic but she also uses marijuana regularly and discuss this might be component as well. Patient is feeling improved after a dose of Reglan fluids and additional dose of Toradol. She is requesting to go home at this time. White count has slightly trended upwards to 14 platelets are 527, hemoglobin is appropriate 13. A potassium slowly down trending at 3.1 sodium was 135, CO2 of 21 creatinine and BUN are appropriate, glucose 13 with LFTs normal except for an ALT of 38 and normal lipase. Urine shows some ketones in blood 5-10 squamous epithelial few bacteria today. Reviewed urine culture from visit on 527. Discussed with patient would potentially change her antibiotic but she does state she smokes THC regularly. Discussed avoiding this as well for some time. We will switch her antibiotic discussed to stop the most recent and start the new 1. 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 She very much wants to leave and does not wish to be here anymore. Discharge Plan Departure Patient Disposition: Home Clinical Impression: Vomiting Instructions: DI for Vomiting -- Adult, DI for Cannabinoid Hyperemesis Syndrome Activity Restrictions/Additional Instructions: Please make sure to fill your prescription for Reglan this morning. Your urine culture showed a small amount of bacteria called Streptococcus group B. I would change your antibiotic. Please stop the Bactrim and fill the prescription for oral antibiotic at [facility] in [place]. This antibiotic is distantly related to amoxicillin and penicillin so please watch for any reaction. There is only a small amount of bacteria in your culture so your symptoms may also be related to hyperemesis cannabis syndrome. I would recommend stopping marijuana or THC for at least 1-2 months and see if this improves your symptoms as well. Please return for new or worsening symptoms, persistent vomiting, fevers, new or worsening abdominal back or flank pain, difficulty with urination, black or bloody stools or other new or concerning changes. Prescriptions: New cephalexin 500 mg capsule 500 mg PO BID Qty: 14 0RF Rx Instructions: Patient thinks she can take, does have allergy to amoxicillin and penicillin No Action (DME) blood-glucose meter [True Metrix Glucose Meter] Kit See Rx Instructions .Route Qty: 1 0RF Rx Instructions: Use to check glucose twice daily (DME) True Metrix Glucose Test Strip Strip See Rx Instructions .Route Qty: 100 1RF Rx Instructions: Use 1 new strip to check glucose twice daily norethindrone (contraceptive) [Ortho Micronor] 0.35 mg tablet 0.35 mg PO DAILY Qty: 28 12RF prenat.vits,ronen,[id number] Tablet 1 tab PO DAILY Qty: 30 0RF ondansetron 4 mg tablet,disintegrating 4 mg PO Q8H PRN (Reason: nausea and vomiting) Qty: 20 0RF sulfamethoxazole-trimethoprim [Bactrim DS] 800-160 mg tablet 1 tab PO BID 7 Days Qty: 14 0RF ondansetron 4 mg tablet,disintegrating 4 mg PO TID-QID PRN (Reason: nausea and vomiting) Qty: 10 0RF metoclopramide HCl [Reglan] 10 mg tablet 10 mg PO Q6H PRN (Reason: nausea and vomiting) Qty: 10 0RF acetaminophen 325 mg Tablet 650 mg PO Q6HR PRN (Reason: Pain, Mild (1-3)) Qty: 7 0RF ibuprofen 600 mg Tablet 600 mg PO Q6HR PRN (Reason: Pain, Mild (1-3)) Qty: 7 0RF Purelan Cream 1 applic topical PRN PRN (Reason: Tenderness) Qty: 7 0RF Referrals: Dar Salomon MD [Primary Care Provider] - Stand Alone Forms: Patient Portal/API
[2023-04-04] MEDS: METOCLOPRAMIDE 10 MG/2 ML INJ IV (07:48)
[2023-04-04] MEDS: SODIUM CHLORIDE 0.9% 1,000 ML 1000 ML IV (07:49)
[2023-04-04 07:53] LABS: Add Manual Diff / Slide Review NO; Basophils Absolute Auto 300 /uL (0-100); Eosinophils Absolute Auto 100 /uL (0-450); Eosinophils Percent Auto 0.6 % (2-4); Hematocrit 39.5 % (36-46); Hemoglobin 13.4 g/dL (12.0-16.0); Lymphocytes Absolute Auto 800 /uL (1100-4500); Lymphocytes Percent Auto 5.5 % (25-40); Mean Corpuscular HGB Conc 33.9 % (30-36); Mean Corpuscular Volume 88.5 fL (80-100); Monocytes Absolute Auto 1100 /uL (0-900); Monocytes Percent Auto 7.2 % (3-14); Neutrophils Absolute Auto 12500 /uL (1500-7000); Neutrophils Percent Auto 84.7 % (50-75); Platelet Count 527 X10^3/uL (150-400); Red Blood Cell Count 4.47 X10^6/uL (4.0-5.2); Red Cell Distribution Width 12.7 % (11.6-14.8); White Blood Cell Count 14.7 X10^3/uL (4.5-11.0)
[2023-04-04 07:56] LABS: Appearance Urine UA CLOUDY; Bilirubin Urine UA NEGATIVE (NEGATIVE); Color Urine UA YELLOW; Glucose Urine UA NEGATIVE (Negative); Ketones Urine UA 1+ (NEGATIVE); Leukocyte Esterase Urine UA NEGATIVE (NEGATIVE); Nitrite Urine UA NEGATIVE (Negative); Occult Blood Urine UA 1+ (Negative); Protein Urine UA NEGATIVE (Negative); Specific Gravity Urine UA 1.025 (1.000-1.035); Urobilinogen Urine UA 0.2 E.U./dL (0.2); pH Urine UA 7.5 (4.5-8.0)
[2023-04-04 07:56] LABS: Alanine Aminotransferase 38 IU/L (<35); Albumin 4.7 g/dL (3.5-5.0); Albumin Globulin Ratio 1.6 (1.0-2.8); Alkaline Phosphatase 43 U/L (38-126); Aspartate Aminotransferase 29 IU/L (14-36); BUN Creatinine Ratio 13.7 (6-22); Bilirubin Total 0.8 mg/dL (0.2-1.3); Blood Urea Nitrogen 10 mg/dL (7-17); Calcium 9.8 mg/dL (8.4-10.2); Carbon Dioxide 21 mmol/L (22-32); Chloride 101 mmol/L (98-107); Estimated Glomerular Filt Rate > 60 mL/min (>60); Glucose 113 mg/dL (70-100); HEMOLYSIS < 15 (0-50); Lipase 53 U/L (23-300); Potassium 3.1 mmol/L (3.4-5.1); Sodium 135 mmol/L (137-145); Total Protein 7.7 g/dL (6.3-8.2)
[2023-04-04 08:00] VITALS: BP 139/90; PULSE 66; O2SAT 96
[2023-04-04 08:03] LABS: Amorphous Sediment Urine 3+; Bacteria Urine Few (2-10); RBC Urine 0-1/HPF (0-5/HPF); Squamous Epithelial Cell Urine 5-10 /HPF (0-5/HPF); WBC Urine None Seen (0-5/HPF)
[2023-04-04 08:04] LABS: Culture Indicated Urine Specimen Cultured
[2023-04-04 08:31] VITALS: PULSE 87; O2SAT 96
[2023-04-04 08:51] LABS: Ur Creatinine Normal (Normal); Ur Specific Gravity Normal (Normal); Urine Tetrahydrocannabinol Positive (Negative); Urine pH Normal (Normal)
[2023-04-04 08:52] LABS: UR Morphine/Opiate cutoff 300 Positive (Negative); Urine Amphetamines Negative (Negative); Urine Barbiturates Negative (Negative); Urine Benzodiazepines Positive (Negative); Urine Cocaine Negative (Negative); Urine MDMA Negative (Negative); Urine Methadone Negative (Negative); Urine Methamphetamines Negative (Negative); Urine Oxycodone Negative (Negative); Urine Phencyclidine Negative (Negative); Urine Tricyclic Antidepressant Negative (Negative)
--- NOTE | 2023-04-04 08:52 | PC.NURSE ---
Pt ambulated to restroom, steady gait. Pt taking shower in ED restroom, wearing paper scrubs due to vomiting on her clothes.
[2023-04-04 09:12] VITALS: PULSE 76; O2SAT 97
[2023-04-04] MEDS: KETOROLAC 30 MG/ML VIAL 15 MG IV (09:18)
[2023-04-04 09:22] VITALS: BP 151/84; PULSE 67; O2SAT 98
== END 2023-04-04 09:48 | disposition home or self-care (01) ==
PROVIDERS: Emergency Provider Emergency Medicine; PCP Family Medicine
DX: R11.2 Nausea with vomiting, unspecified (principal); R10.9 Unspecified abdominal pain; R79.89 Other specified abnormal findings of blood chemistry; Z72.0 Tobacco use; F12.90 Cannabis use, unspecified, uncomplicated; M62.838 Other muscle spasm
CPT/HCPCS: 36415; 74021; 80053; 80305; 81001; 81003; 81025; 83605; 83690; 85025; 87086; 96361; 96374; 96375; 99283; 99284; J1885; J2765

== ENCOUNTER 2023-04-04 19:44 | Emergency (ER) | payer OTHER, MEDICAID, SELFPAY ==
[2023-04-04 20:12] VITALS: BP 153/92; PULSE 84; RESP 18; TEMP 37.2; O2SAT 98; BMI 16.6
[2023-04-04] MEDS: SODIUM CHLORIDE 0.9% 1,000 ML 1000 ML IV (20:48)
[2023-04-04 20:51] VITALS: TEMP 37.5
[2023-04-04 20:54] LABS: Add Manual Diff / Slide Review NO; Basophils Absolute Auto 200 /uL (0-100); Basophils Percent Auto 1.1 % (0-2); Eosinophils Absolute Auto 100 /uL (0-450); Eosinophils Percent Auto 0.9 % (2-4); Hematocrit 36.1 % (36-46); Hemoglobin 12.1 g/dL (12.0-16.0); Lymphocytes Absolute Auto 2500 /uL (1100-4500); Lymphocytes Percent Auto 16.9 % (25-40); Mean Corpuscular HGB Conc 33.6 % (30-36); Mean Corpuscular Hemoglobin 29.9 PG (26-34); Mean Corpuscular Volume 88.9 fL (80-100); Monocytes Absolute Auto 1800 /uL (0-900); Monocytes Percent Auto 12.5 % (3-14); Neutrophils Absolute Auto 10100 /uL (1500-7000); Neutrophils Percent Auto 68.6 % (50-75); Platelet Count 486 X10^3/uL (150-400); Red Blood Cell Count 4.07 X10^6/uL (4.0-5.2); Red Cell Distribution Width 12.6 % (11.6-14.8); White Blood Cell Count 14.8 X10^3/uL (4.5-11.0)
[2023-04-04 21:17] LABS: Lactate (Lactic Acid) 1.4 mmol/L (0.7-2.1)
[2023-04-04 21:18] LABS: Alanine Aminotransferase 33 IU/L (<35); Albumin 4.3 g/dL (3.5-5.0); Albumin Globulin Ratio 1.4 (1.0-2.8); Alkaline Phosphatase 41 U/L (38-126); Aspartate Aminotransferase 27 IU/L (14-36); Bilirubin Total 0.5 mg/dL (0.2-1.3); Blood Urea Nitrogen 9 mg/dL (7-17); Calcium 8.9 mg/dL (8.4-10.2); Carbon Dioxide 24 mmol/L (22-32); Chloride 100 mmol/L (98-107); Estimated Glomerular Filt Rate > 60 mL/min (>60); Glucose 99 mg/dL (70-100); HEMOLYSIS < 15 (0-50); Potassium 3.5 mmol/L (3.4-5.1); Sodium 133 mmol/L (137-145); Total Protein 7.3 g/dL (6.3-8.2)
[2023-04-04 22:04] VITALS: BP 124/72; PULSE 92; RESP 18
--- NOTE | 2023-04-04 22:19 | PC.NURSE ---
Pt reports feeling much better. Pt still has contracted right hand, but the rest of her body does not appear contracted or tensed up.
--- NOTE | 2023-04-04 22:26 | ED.RECABL ---
HPI - Recheck/Abnormal Lab/Rx General Chief Complaint: Recheck/Abnormal Lab/Rx Stated Complaint: bad reaction to meds stiffness upper body Time Seen by Provider: 04/04/23 20:21 Source: patient Mode of arrival: Ambulatory History of Present Illness HPI narrative: Patient is a 22-year-old female who presents for the 5th time this month. She was seen evaluated this morning and yesterday with abdominal pain nausea vomiting. During 1 of the visits she was diagnosed with a UTI she had group B strep less than 10,000 colonies. She reports that she is symptomatic having some painful frequent urination. She took her 1st dose of cephalexin tonight and felt like she had muscle spasms that her hands clamp down her neck was contracted. No tongue swelling lip swelling no hives no itching no pruritus. She is overall feeling better. No abdominal pain nausea or vomiting. She is actually received a L of fluid and feels ready and able to go. Related Data Previous Rx's Medication Instructions Recorded prenat.vits,ronen,iyj-galb-vqqsb 1 tab PO DAILY #30 tabs 07/16/21 acetaminophen 325 mg tablet 650 mg (2 x 325 mg) PO Q6HR PRN 03/08/22 Pain, Mild (1-3) #7 tabs ibuprofen 600 mg tablet 600 mg PO Q6HR PRN Pain, Mild 03/08/22 (1-3) #7 tabs lanolin (Purelan topical cream) 1 applic topical PRN PRN 03/08/22 Tenderness #7 grams blood sugar diagnostic (True #100 ea 03/11/22 Metrix Glucose Test Strip) blood-glucose meter (True Metrix #1 ea 03/11/22 Glucose Meter kit) norethindrone (contraceptive) 0.35 0.35 mg PO DAILY #28 tabs 04/17/22 mg tablet (Ortho Micronor) ondansetron 4 mg disintegrating 4 mg PO Q8H PRN nausea and 03/24/23 tablet vomiting #20 tabs ondansetron 4 mg disintegrating 4 mg PO TID-QID PRN nausea and 04/02/23 tablet vomiting #10 tabs sulfamethoxazole 800 1 tab PO BID 7 days #14 tabs 04/02/23 mg-trimethoprim 160 mg tablet (Bactrim DS) metoclopramide HCl 10 mg tablet 10 mg PO Q6H PRN nausea and 04/03/23 (Reglan) vomiting #10 tabs cephalexin 500 mg capsule 500 mg PO BID #14 caps 04/04/23 Allergies Allergy/AdvReac Type Severity Reaction Status Date / Time amoxicillin Allergy Intermediate Verified 04/04/23 20:12 Penicillins Allergy Intermediate Verified 04/04/23 20:12 Patient History Medical History Hyperemesis gravidarum History of drug use UTI (urinary tract infection) Borderline personality disorder Migraine Depression Anxiety Surgical History No history of previous surgery Social History marital status: unmarried,living together (engaged) number of children: 0 household members: significant other lives independently: Yes housing: apartment pets and animals: Yes (Cat - aware of toxoplasmosis) education level: high school (GED) occupational status: unemployed current occupational exposures/hazards: No special isabella needs: No seatbelt use: always water heater temp set < 120 deg: Yes (will check) working smoke detector in home: Yes fire extinguisher in home: No (will get) carbon monox detector in home: Yes firearms in home: Yes firearms unloaded and locked: Yes do you feel safe at home: Yes Smoking Status: Current every day smoker second hand exposure: Yes (occas) alcohol intake: former substance use type: former substance user and marijuana (cutting back) during the past year weight has: remained stable well-balanced diet: about half the time (poor appetite, uses Maijuana) daily servings fruits/ve-1 caffeine: No (limit to 200mg a day) 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 RESPIRATORY: Breath sounds equal bilaterally, no wheezes rales or rhonchi. ABDOMEN: Soft, nontender. Normoactive bowel sounds all 4 quadrants. No guarding or rebound. EXTREMITIES: Normal range of motion, no clubbing or edema. Neurovascularly intact NEUROLOGICAL: Alert and oriented x4. SKIN: Warm, dry, no laceration, no petechiae, no rashes or lesions. Course Orders Ordered: ED Orders 04/04/23 20:36 CBC Auto Diff [Complete Blood Count AUTO DIFF] Stat CMP [Comprehensive Metabolic Panel] Stat Lactate (Lactic Acid) Stat Discontinued Medications Sodium Chloride (Normal Saline 0.9%) 1,000 mls @ 1,000 mls/hr IV BOLUS ONE Stop: 04/04/23 21:20 Last Infusion: 04/04/23 22:31 Dose: Infused Documented By: Admin: 04/04/23 20:48 Dose: 1,000 mls/hr Documented By: SB Vital Signs Vital signs: Vital Signs - 8 hr 04/04/23 20:12 04/04/23 20:51 04/04/23 22:04 Temperature 98.9 F 99.5 F Pulse Rate 84 92 H Respiratory Rate 18 18 Blood Pressure 153/92 H 124/72 Pulse Oximetry 98 Oxygen Delivery Method Room Air 04/04/23 22:53 Temperature Pulse Rate 74 Respiratory Rate 16 Blood Pressure 127/72 Pulse Oximetry 98 Oxygen Delivery Method Room Air MDM - Recheck/Abnormal Lab/Rx Lab Data 04/04/23 20:36 04/04/23 20:36 Labs: Lab Results 04/04/23 Range/Units 20:36 WBC 14.8 H (4.5-11.0) X10^3/uL RBC 4.07 (4.0-5.2) X10^6/uL Hgb 12.1 (12.0-16.0) g/dL Hct 36.1 (36-46) % MCV 88.9 (80-100) fL MCH 29.9 (26-34) PG MCHC 33.6 (30-36) % RDW 12.6 (11.6-14.8) % Plt Count 486 H (150-400) X10^3/uL Neut % (Auto) 68.6 (50-75) % Lymph % (Auto) 16.9 L (25-40) % [place] % (Auto) 12.5 (3-14) % Eos % (Auto) 0.9 L (2-4) % Baso % (Auto) 1.1 (0-2) % Neut # (Auto) 39707 H (0390-0823) /uL Lymph # (Auto) 2500 (4927-0120) /uL [place] # (Auto) 1800 H (0-900) /uL Eos # (Auto) 100 (0-450) /uL Baso # (Auto) 200 H (0-100) /uL Sodium 133 L (137-145) mmol/L Potassium 3.5 (3.4-5.1) mmol/L Chloride 100 (98-107) mmol/L Carbon Dioxide 24 (22-32) mmol/L BUN 9 (7-17) mg/dL Creatinine 0.60 (0.52-1.04) mg/dL Estimated GFR > 60 (>60) mL/min BUN/Creatinine Ratio 15.0 (6-22) Glucose 99 (70-100) mg/dL Lactate 1.4 (0.7-2.1) mmol/L Calcium 8.9 (8.4-10.2) mg/dL Total Bilirubin 0.5 (0.2-1.3) mg/dL AST 27 (14-36) IU/L ALT 33 (<35) IU/L Alkaline Phosphatase 41 (38-126) U/L Total Protein 7.3 (6.3-8.2) g/dL Albumin 4.3 (3.5-5.0) g/dL Globulin 3.0 (1.7-4.1) g/dL Albumin/Globulin Ratio 1.4 (1.0-2.8) MDM Narrative Medical decision making narrative: Patient 22-year-old female presents today with muscle contractions after taking Keflex. This is unlikely reaction to the antibiotic. Initially concern for possibly hypokalemia. However potassium today is 3.5 earlier it was 3.1 she is no other electrolyte abnormality she was given some IV fluids overall feeling much better. She is no evidence of anaphylaxis. She is a very mild UTI group B strep with less than 10,000 colonies not even convinced this is causing her problems. At this time recommend continuing for 3 days and then stopping. Need to change antibiotics. She is feeling better and able to go home. Discharge Plan Departure Patient Disposition: Home Clinical Impression: Muscle spasm Instructions: DI for Muscle Spasm Activity Restrictions/Additional Instructions: *You have been diagnosed with muscle spasm *What to do: At this time your electrolytes are stable. Not convinced that you reaction was due to the antibiotic. I do recommend that you only take 3 days of the antibiotic you do not necessarily need 7 *Continue to take medications as directed *Follow up with your primary care provider in 2-3 days or call [phone] *Return to ER if you should have any new, worsening or concerning symptoms Prescriptions: No Action (DME) blood-glucose meter [True Metrix Glucose Meter] Kit See Rx Instructions .Route Qty: 1 0RF Rx Instructions: Use to check glucose twice daily (DME) True Metrix Glucose Test Strip Strip See Rx Instructions .Route Qty: 100 1RF Rx Instructions: Use 1 new strip to check glucose twice daily norethindrone (contraceptive) [Ortho Micronor] 0.35 mg tablet 0.35 mg PO DAILY Qty: 28 12RF prenat.vits,ronen,[id number] Tablet 1 tab PO DAILY Qty: 30 0RF ondansetron 4 mg tablet,disintegrating 4 mg PO Q8H PRN (Reason: nausea and vomiting) Qty: 20 0RF sulfamethoxazole-trimethoprim [Bactrim DS] 800-160 mg tablet 1 tab PO BID 7 Days Qty: 14 0RF ondansetron 4 mg tablet,disintegrating 4 mg PO TID-QID PRN (Reason: nausea and vomiting) Qty: 10 0RF metoclopramide HCl [Reglan] 10 mg tablet 10 mg PO Q6H PRN (Reason: nausea and vomiting) Qty: 10 0RF acetaminophen 325 mg Tablet 650 mg PO Q6HR PRN (Reason: Pain, Mild (1-3)) Qty: 7 0RF ibuprofen 600 mg Tablet 600 mg PO Q6HR PRN (Reason: Pain, Mild (1-3)) Qty: 7 0RF Purelan Cream 1 applic topical PRN PRN (Reason: Tenderness) Qty: 7 0RF cephalexin 500 mg capsule 500 mg PO BID Qty: 14 0RF Rx Instructions: Patient thinks she can take, does have allergy to amoxicillin and penicillin Referrals: Dar Salomon MD [Primary Care Provider] - Stand Alone Forms: Patient Portal/API
[2023-04-04 22:53] VITALS: BP 127/72; PULSE 74; RESP 16; O2SAT 98
== END 2023-04-04 22:56 | disposition home or self-care (01) ==
PROVIDERS: Emergency Provider Emergency Medicine; PCP Family Medicine
DX: M62.838 Other muscle spasm (principal); R11.2 Nausea with vomiting, unspecified
CPT/HCPCS: 36415; 80053; 83605; 85025

== ENCOUNTER → 2023-04-11 17:32 | Outpatient (CLI) | payer OTHER, MEDICAID, SELFPAY ==
--- NOTE | 2023-04-11 17:35 | DI.RAD.S_ITS ---
PROCEDURE: XR ANKLE RT MIN 3V INDICATIONS: right ankle sprain TECHNIQUE: 3 views of the ankle were acquired. COMPARISON: None. FINDINGS: Bones: No fractures or dislocations. Ankle mortise is normally aligned. No suspicious bony lesions. Soft tissues: No tibiotalar joint effusion. Achilles tendon appears normal. IMPRESSION: No acute radiographic findings. If pain persists, followup imaging in 5-7 days is recommended to exclude occult fracture. Dictated by: Trish Park M.D. on 04/11/2023 at 20:45 Approved by: Trish Park M.D. on 04/11/2023 at 20:46
== END ==
PROVIDERS: PCP Family Medicine; Referring Provider Physician Assistant; Visit Provider Physician Assistant
DX: S93.401A Sprain of unspecified ligament of right ankle, initial encounter (principal); X58.XXXA Exposure to other specified factors, initial encounter
CPT/HCPCS: 73610

== ENCOUNTER → 2023-05-03 17:43 | Outpatient (CLI) | payer OTHER, MEDICAID, SELFPAY | PROVIDERS: PCP Family Medicine; Visit Provider Nurse Practitioner Family | DX: R30.0 Dysuria (principal) | CPT/HCPCS: 81002; 87086 ==

== ENCOUNTER → 2023-08-04 13:06 | Outpatient (CLI) | payer OTHER, MEDICAID, SELFPAY | PROVIDERS: PCP Family Medicine; Visit Provider Nurse Practitioner Family | DX: J02.9 Acute pharyngitis, unspecified (principal) | CPT/HCPCS: 87070; 87147 ==

== ENCOUNTER 2024-03-02 15:53 | Emergency (ER) | payer OTHER, MEDICAID, SELFPAY ==
[2024-03-02 15:57] VITALS: BP 142/88; PULSE 67; RESP 16; TEMP 36.8; O2SAT 100; BMI 17.6
--- NOTE | 2024-03-02 16:04 | EKG_ITS ---
[address] [address] Test Date: 2024-03-02 Pat Name: Idania Peres Department: [facility] Room: Gender: Female Chief Projectionist: MAZIN : 2000 Requested By: Order Number: [id number] Reading MD: Goran Null MD Measurements Intervals [place] Rate: 60 P: 78 MD: 110 QRS: 75 QRSD: 88 T: 67 QT: 438 QTc: 438 Interpretive Statements Sinus rhythm with marked sinus arrhythmia with short MD Electronically Signed On 03-03-2024 7:37:49 PDT by Goran Null MD
[2024-03-02] MEDS: SODIUM CHLORIDE 0.9% 1,000 ML 1000 ML IV (16:15)
[2024-03-02 16:17] LABS: Add Manual Diff / Slide Review NO; Basophils Absolute Auto 0 /uL (0-100); Basophils Percent Auto 0.2 % (0-2); Eosinophils Absolute Auto 0 /uL (0-450); Eosinophils Percent Auto 0.1 % (2-4); Hematocrit 40.2 % (36-46); Hemoglobin 13.6 g/dL (12.0-16.0); Lymphocytes Absolute Auto 500 /uL (1100-4500); Lymphocytes Percent Auto 2.4 % (25-40); Mean Corpuscular HGB Conc 33.9 % (30-36); Mean Corpuscular Hemoglobin 30.9 PG (26-34); Mean Corpuscular Volume 91.3 fL (80-100); Monocytes Absolute Auto 700 /uL (0-900); Monocytes Percent Auto 3.1 % (3-14); Neutrophils Absolute Auto 21100 /uL (1500-7000); Neutrophils Percent Auto 94.2 % (50-75); Platelet Count 536 X10^3/uL (150-400); Red Blood Cell Count 4.41 X10^6/uL (4.0-5.2); Red Cell Distribution Width 12.6 % (11.6-14.8); White Blood Cell Count 22.4 X10^3/uL (4.5-11.0)
[2024-03-02] MEDS: METOCLOPRAMIDE 10 MG/2 ML INJ IV (16:21)
[2024-03-02 16:27] LABS: Alanine Aminotransferase 22 IU/L (<35); Albumin 5.3 g/dL (3.5-5.0); Albumin Globulin Ratio 1.7 (1.0-2.8); Alkaline Phosphatase 56 U/L (38-126); Aspartate Aminotransferase 27 IU/L (14-36); BUN Creatinine Ratio 23.7 (6-22); Bilirubin Total 1.6 mg/dL (0.2-1.3); Blood Urea Nitrogen 14 mg/dL (7-17); Calcium 10.1 mg/dL (8.4-10.2); Carbon Dioxide 20 mmol/L (22-32); Chloride 104 mmol/L (98-107); Estimated Glomerular Filt Rate > 60 mL/min (>60); Globulin 3.1 g/dL (1.7-4.1); Glucose 181 mg/dL (70-100); HEMOLYSIS 17 (0-50); Lipase 19 U/L (23-300); Potassium 3.9 mmol/L (3.4-5.1); Sodium 139 mmol/L (137-145); Total Protein 8.4 g/dL (6.3-8.2)
[2024-03-02 17:20] LABS: Lactate (Lactic Acid) 2.2 mmol/L (0.7-2.1)
[2024-03-02 18:45] LABS: Reflexed Lactate in 2 Hours Y
--- NOTE | 2024-03-03 08:16 | PC.NURSE ---
Left message for pt to call / discuss labs and return to ED for further evaluation.
== END 2024-03-02 17:18 | disposition left against medical advice (07) ==
PROVIDERS: Emergency Provider Emergency Medicine; PCP Family Medicine
DX: I49.8 Other specified cardiac arrhythmias (principal); R79.89 Other specified abnormal findings of blood chemistry
CPT/HCPCS: 80053; 83605; 83690; 84145; 85025; 93005; 93010; 96374; 99283; 99284; J2765

== ENCOUNTER 2024-03-03 12:36 | Emergency (ER) | payer OTHER, MEDICAID, SELFPAY ==
[2024-03-03] VITALS (7 sets, daily range): BP systolic 121–169; BP diastolic 60–103; PULSE 64–82; RESP 16–18; TEMP 36.9; O2SAT 96–100; BMI 16.6
[2024-03-03] MEDS: ONDANSETRON 4 MG/2 ML INJ IV (13:01)
[2024-03-03] MEDS: SODIUM CHLORIDE 0.9% 1,000 ML 1000 ML IV ×2 (13:01→14:25)
[2024-03-03 13:09] LABS: Alanine Aminotransferase 26 IU/L (<35); Albumin 5.3 g/dL (3.5-5.0); Albumin Globulin Ratio 1.6 (1.0-2.8); Alkaline Phosphatase 56 U/L (38-126); Aspartate Aminotransferase 31 IU/L (14-36); BUN Creatinine Ratio 19.4 (6-22); Blood Urea Nitrogen 12 mg/dL (7-17); Calcium 10.2 mg/dL (8.4-10.2); Carbon Dioxide 23 mmol/L (22-32); Chloride 103 mmol/L (98-107); Estimated Glomerular Filt Rate > 60 mL/min (>60); Globulin 3.4 g/dL (1.7-4.1); Glucose 142 mg/dL (70-100); HEMOLYSIS < 15 (0-50); Lipase 48 U/L (23-300); Potassium 3.4 mmol/L (3.4-5.1); Sodium 140 mmol/L (137-145); Total Protein 8.7 g/dL (6.3-8.2)
[2024-03-03 13:12] LABS: Add Manual Diff / Slide Review NO; Basophils Absolute Auto 100 /uL (0-100); Basophils Percent Auto 0.4 % (0-2); Eosinophils Absolute Auto 100 /uL (0-450); Eosinophils Percent Auto 0.6 % (2-4); Hematocrit 41.1 % (36-46); Lymphocytes Absolute Auto 1200 /uL (1100-4500); Lymphocytes Percent Auto 5.4 % (25-40); Mean Corpuscular HGB Conc 34.1 % (30-36); Mean Corpuscular Hemoglobin 31.1 PG (26-34); Mean Corpuscular Volume 91.2 fL (80-100); Monocytes Absolute Auto 1400 /uL (0-900); Monocytes Percent Auto 6.4 % (3-14); Neutrophils Absolute Auto 18800 /uL (1500-7000); Neutrophils Percent Auto 87.2 % (50-75); Platelet Count 566 X10^3/uL (150-400); Red Blood Cell Count 4.51 X10^6/uL (4.0-5.2); Red Cell Distribution Width 12.5 % (11.6-14.8); White Blood Cell Count 21.5 X10^3/uL (4.5-11.0)
--- NOTE | 2024-03-03 14:13 | PC.NURSE ---
Pt reports she thinks her period is starting because shes spotting, but could also be . 72hours of nausea/vomiting/abdominal pain.
[2024-03-03 14:36] LABS: Reflexed Lactate in 2 Hours Y
[2024-03-03 14:37] LABS: Procalcitonin < 0.030 ng/mL (<0.5)
--- NOTE | 2024-03-03 14:38 | ED.FEMALEGU ---
HPI - Female Genitourinary General Chief complaint: Urogenital-Female Stated complaint: return still vomiting and shaking Time Seen by Provider: 03/03/24 14:02 History of Present Illness HPI Narrative: Patient is a 23-year-old female presenting today with 3 days of nausea vomiting. She says this is happened to her off and on since she was . She frequently gets UTIs and does not have the typical symptoms it is vomiting. Yesterday she was here what we were busy she had blood work showed an elevated lactate bilirubin and leukocytosis. We called her back for re-evaluation. She reports that she continues to have nausea vomiting. She is some mild bilateral back pain. No significant abdominal pain no painful frequent urination. No chest pain shortness of breath. She has been chilled but no actual fever. At this time she is received IV fluids Zofran and overall feeling better Related Data Previous Rx's Medication Instructions Recorded lidocaine HCl 4 % (40 mg/mL) 1 applic mucous membrane TID PRN 08/04/23 mucosal solution pain #50 mL metoclopramide HCl 10 mg tablet 10 mg PO Q6H PRN nausea and 03/03/24 (Reglan) vomiting #20 tabs nitrofurantoin 100 mg PO Q12H 7 days #14 caps 03/03/24 monohydrate/macrocrystals 100 mg capsule (Macrobid) Allergies Allergy/AdvReac Type Severity Reaction Status Date / Time amoxicillin Allergy Intermediate Verified 03/02/24 16:19 Penicillins Allergy Intermediate Verified 03/02/24 16:19 cephalexin Allergy Unknown Verified 03/02/24 16:19 All Cillins Allergy Intermediate Uncoded 03/02/24 16:19 Patient History Medical History (Updated 03/03/24 @ 16:25 by Shaye Garcia DO) Asthma (~2019) History of drug use Borderline personality disorder (~2017) Depression (~2004) Anxiety (~2004) Migraine UTI (urinary tract infection) Hyperemesis gravidarum Susceptible to varicella (non-immune), currently Size of fetus inconsistent with dates in third trimester Poor weight gain of Surgical History No history of previous surgery Family History (Updated 06/11/23 @ 20:57 by Nelida Sepulveda) Mother Mental health problem Sister Mental health problem alcohol intake frequency: other Substance Use Type: marijuana Exam Initial Vital Signs Initial Vital Signs: Vital Signs Pulse Oximetry 100 03/03/24 12:41 GENERAL: Alert well-appearing 23-year-old female and in no acute distress. HEENT: Head atraumatic,EOMI, pupils reactive, face symmetric, moist mucous membranes CARDIOVASCULAR: Regular rate and rhythm without murmurs, rubs or gallops. RESPIRATORY: Breath sounds equal bilaterally, no wheezes rales or rhonchi. ABDOMEN: Soft, nontender. Normoactive bowel sounds all 4 quadrants. No guarding or rebound. : Mild bilateral CVA tenderness EXTREMITIES: Normal range of motion, no clubbing or edema. Neurovascularly intact NEUROLOGICAL: Alert and oriented x4.Normal gait and speech. SKIN: Warm, dry, no laceration, no petechiae, no rashes or lesions. Course Orders Ordered: Discontinued Medications Sodium Chloride (Normal Saline 0.9%) 1,000 mls @ 1,000 mls/hr IV BOLUS ONE Stop: 03/03/24 13:56 Last Infusion: 03/03/24 13:56 Dose: Infused Documented By: Admin: 03/03/24 13:01 Dose: 1,000 mls/hr Documented By: ZHAO Sodium Chloride (Normal Saline 0.9%) 1,000 mls @ 1,000 mls/hr IV BOLUS ONE Stop: 03/03/24 15:02 Last Infusion: 03/03/24 15:06 Dose: Infused Documented By: Admin: 03/03/24 14:25 Dose: 1,000 mls/hr Documented By: NAVYA Ceftriaxone Sodium 1,000 mg/ (Sodium Chloride) 100 mls @ 200 mls/hr IV NOW ONE Stop: 03/03/24 15:09 Last Infusion: 03/03/24 16:01 Dose: Infused Documented By: Admin: 03/03/24 15:22 Dose: 200 mls/hr Documented By: NAVYA Metoclopramide HCl (Metoclopramide 10 Mg/2 Ml Inj) 10 mg IV NOW ONE Stop: 03/03/24 15:09 Last Admin: 03/03/24 15:22 Dose: 10 mg Documented By: NAVYA Ondansetron HCl (Ondansetron 4 Mg/2 Ml Inj) 4 mg IV NOW PRN PRN Reason: Nausea And Vomiting Last Admin: 03/03/24 13:01 Dose: 4 mg Documented By: ZHAO Ondansetron HCl (Ondansetron 4 Mg Odt) 4 mg SL NOW PRN PRN Reason: Nausea And Vomiting Vital Signs Vital signs: Vital Signs - 8 hr 03/03/24 12:41 03/03/24 12:42 03/03/24 12:42 Temperature Pulse Rate 73 Respiratory Rate Blood Pressure 169/103 H Pulse Oximetry 100 100 Oxygen Delivery Method 03/03/24 12:43 03/03/24 13:00 03/03/24 13:30 Temperature 98.4 F Pulse Rate 75 72 64 Respiratory Rate 18 Blood Pressure 169/103 H 145/87 H Pulse Oximetry 100 100 96 Oxygen Delivery Method Room Air 03/03/24 14:11 03/03/24 15:30 Temperature Pulse Rate 80 82 Respiratory Rate 16 Blood Pressure 121/60 139/82 Pulse Oximetry 98 Oxygen Delivery Method Room Air MDM - Female Genitourinary Lab Data 03/03/24 12:45 03/03/24 12:45 Labs: Lab Results 03/03/24 03/03/24 03/03/24 Range/Units 12:45 14:14 14:52 WBC 21.5 H (4.5-11.0) X10^3/uL RBC 4.51 (4.0-5.2) X10^6/uL Hgb 14.0 (12.0-16.0) g/dL Hct 41.1 (36-46) % MCV 91.2 (80-100) fL MCH 31.1 (26-34) PG MCHC 34.1 (30-36) % RDW 12.5 (11.6-14.8) % Plt Count 566 H (150-400) X10^3/uL Neut % (Auto) 87.2 H (50-75) % Lymph % (Auto) 5.4 L (25-40) % [place] % (Auto) 6.4 (3-14) % Eos % (Auto) 0.6 L (2-4) % Baso % (Auto) 0.4 (0-2) % Neut # (Auto) 93195 H (8801-3837) /uL Lymph # (Auto) 1200 (6588-5486) /uL [place] # (Auto) 1400 H (0-900) /uL Eos # (Auto) 100 (0-450) /uL Baso # (Auto) 100 (0-100) /uL Sodium 140 (137-145) mmol/L Potassium 3.4 (3.4-5.1) mmol/L Chloride 103 (98-107) mmol/L Carbon Dioxide 23 (22-32) mmol/L BUN 12 (7-17) mg/dL Creatinine 0.62 (0.52-1.04) mg/dL Estimated GFR > 60 (>60) mL/min BUN/Creatinine Ratio 19.4 (6-22) Glucose 142 H (70-100) mg/dL Lactate 3.0 H 2.0 (0.7-2.1) mmol/L Calcium 10.2 (8.4-10.2) mg/dL Total Bilirubin 2.0 H (0.2-1.3) mg/dL AST 31 (14-36) IU/L ALT 26 (<35) IU/L Alkaline Phosphatase 56 (38-126) U/L Total Protein 8.7 H (6.3-8.2) g/dL Albumin 5.3 H (3.5-5.0) g/dL Globulin 3.4 (1.7-4.1) g/dL Albumin/Globulin Ratio 1.6 (1.0-2.8) Lipase 48 D (23-300) U/L Procalcitonin < 0.030 (<0.5) ng/mL Urine RBC 1-5/hpf (0-5/HPF) Urine WBC 1-5/hpf (0-5/HPF) Ur Squamous Epith Cells 10-30 /hpf H (0-5/HPF) Urine Bacteria Few (2-10) H (None) Urine Mucus 2+ H (Negative) Ur Culture Indicated? Cult not indicated Vol Urine Centrifuged 10ml (spun) Point of Care Testing Test Results Negative Urine Dip Bedside Urine Glucose Negative Bedside Urine Bilirubin - Negative Bedside Urine Ketone +/- 5 Urine Specific [place] 1.015 Bedside Urine Occult Blood + Bedside Urine pH 8.5 Bedside Urine Protein ++ 100 Bedside Urine Urobilinogen - Negative Bedside Urine Nitrite - Negative Bedside Urine Leukocytes - Negative Esterase ECG Data Attestation: I personally reviewed and interpreted this ECG as follows: Prior ECG tracings: available for review Interpretation: sinus rhythm rate 60 CO interval 110 QRS 80 QTC 430 no changes (from 03/02/2024) MDM Narrative Medical decision making narrative: MDM CC: Nausea vomiting Complicating co-morbidities: Episodes nausea vomiting Medical records reviewed: Previous ED visits Differential considered: Sepsis gastroenteritis cholecystitis Exam documented above, pertinent findings include: He is surprisingly appears well nontoxic abdomen soft nontender flank pain more left than right no right upper quadrant pain. Lab Test results independently reviewed as above. Pertinent findings: WBC 21.5, lactic acid 3.0-->2.0, bilirubin 2.0, procalcitonin undetectable CMP electrolytes stable creatinine 0.62 potassium 3.4, AST 31 ALT 26 alk-phos 56, lipase 48 Urinalysis negative for positive for protein and few bacteria negative for nitrate Independently reviewed EKG as above EKG from yesterday reviewed no prolonged QT Imaging studies independently reviewed: Treatments: IV fluids Rocephin Zofran Reglan Re-evaluations: Patient tolerating fluids feeling significantly better Discussion: Patient has ongoing nausea vomiting for the last 2-3 days. She does have signs sepsis with leukocytosis elevated lactate. Possible UTI she is got bacteria but no other signs or symptoms. She also some bilateral flank pain which makes me think of pyelonephritis. Not having significant abdominal pain. Certainly no right upper quadrant pain. She does have elevated bilirubin which can go with sepsis but she has no right upper quadrant pain no elevated liver enzymes. She does not have any blood in her urine. Does not quite sound like nephrolithiasis. Patient previously had some sort of odd reaction to Keflex but she did fine Rocephin. Discharge Plan Departure Patient Disposition: Home Clinical Impression: UTI (urinary tract infection) Instructions: DI for Urinary Tract Infection (UTI) Activity Restrictions/Additional Instructions: *You have been diagnosed with UTI *What to do: At this time I am sorry this keeps happening to you. Please increase your fluids as tolerated. Hopefully start feeling a little bit better. *Continue to take medications as directed Macrobid 100 mg twice a day 7 days Reglan 10 mg every 6 hours if needed for nausea or vomiting *Follow up with your primary care provider in 2-3 days or call [phone] *Return to ER if you should have increase nausea vomiting abdominal pain back pain or any new, worsening or concerning symptoms Prescriptions: New metoclopramide HCl [Reglan] 10 mg tablet 10 mg PO Q6H PRN (Reason: nausea and vomiting) Qty: 20 0RF nitrofurantoin monohyd/m-cryst [Macrobid] 100 mg capsule 100 mg PO Q12H 7 Days Qty: 14 0RF Rx Instructions: must administer with a meal/food No Action lidocaine HCl 4 % (40 mg/mL) solution 1 applic mucous membrane TID PRN (Reason: pain) Qty: 50 0RF Rx Instructions: Swish and spit Referrals: Dar Salomon MD [Primary Care Provider] - Stand Alone Forms: Patient Portal/API
[2024-03-03 14:42] LABS: Bacteria Urine Few (2-10); Culture Indicated Urine Cult Not Indicated; Mucus Urine 2+ (Negative); RBC Urine 1-5/HPF (0-5/HPF); Squamous Epithelial Cell Urine 10-30 /HPF (0-5/HPF); Urine Volume 10mL (spun); WBC Urine 1-5/HPF (0-5/HPF)
[2024-03-03] MEDS: METOCLOPRAMIDE 10 MG/2 ML INJ IV (15:22)
[2024-03-03] MEDS: cefTRIAXone 1,000 MG in SODIUM CHLORIDE 0.9% 100 ML 200 MG IV (15:22)
== END 2024-03-03 16:41 | disposition home or self-care (01) ==
PROVIDERS: Emergency Provider Emergency Medicine; PCP Family Medicine
DX: N39.0 Urinary tract infection, site not specified (principal); R11.2 Nausea with vomiting, unspecified
CPT/HCPCS: 36415; 80053; 81003; 81015; 81025; 83605; 83690; 84145; 85025; 87040; 96361; 96365; 96375; 99284; J0696; J2405; J2765

== ENCOUNTER 2024-03-04 12:50 | Emergency (ER) | payer OTHER, MEDICAID, SELFPAY ==
[2024-03-04] VITALS (7 sets, daily range): BP systolic 124–155; BP diastolic 75–101; PULSE 78–89; RESP 20; TEMP 36.6; O2SAT 98–100; BMI 16.6
--- NOTE | 2024-03-04 13:10 | ED.NAVMDI ---
HPI - Nausea/Vomiting/Diarrhea General Chief complaint: Nausea/Vomiting/Diarrhea Stated complaint: Returning; Vomiting, Antibiotic Reaction Time Seen by Provider: 03/04/24 13:10 History of Present Illness HPI Narrative: Patient 23-year-old female presenting today with ongoing nausea vomiting and cramping in her hands. She was seen evaluated by myself yesterday. She was thought to maybe have a UTI she was given a dose of IV Rocephin she tolerated it while she does have a history of reaction to cephalexin which was like muscle spasms. She was given Macrobid yesterday to go home she feels like this is a reaction to that. Her hands are clamped she has been continuing to throw up not keeping anything down. She has pain all over. UA was not actually culttured cause she had 5-10 squamous cells Related Data Previous Rx's Medication Instructions Recorded lidocaine HCl 4 % (40 mg/mL) 1 applic mucous membrane TID PRN 08/04/23 mucosal solution pain #50 mL metoclopramide HCl 10 mg tablet 10 mg PO Q6H PRN nausea and 03/03/24 (Reglan) vomiting #20 tabs nitrofurantoin 100 mg PO Q12H 7 days #14 caps 03/03/24 monohydrate/macrocrystals 100 mg capsule (Macrobid) promethazine 25 mg rectal 25 mg AZ Q6H PRN nausea and 03/04/24 suppository vomiting #12 ea Allergies Allergy/AdvReac Type Severity Reaction Status Date / Time amoxicillin Allergy Intermediate Verified 03/02/24 16:19 Penicillins Allergy Intermediate Verified 03/02/24 16:19 cephalexin Allergy Unknown Verified 03/02/24 16:19 All Cillins Allergy Intermediate Uncoded 03/02/24 16:19 Patient History Medical History Asthma (~2019) History of drug use Borderline personality disorder (~2017) Depression (~2004) Anxiety (~2004) Migraine UTI (urinary tract infection) Hyperemesis gravidarum Susceptible to varicella (non-immune), currently Size of fetus inconsistent with dates in third trimester Poor weight gain of Surgical History No history of previous surgery Family History Mother Mental health problem Sister Mental health problem Social History marital status: unmarried,living together (engaged) number of children: 0 household members: significant other lives independently: Yes housing: apartment pets and animals: Yes (Cat - aware of toxoplasmosis) education level: high school (GED) occupational status: unemployed current occupational exposures/hazards: No special isabella needs: No seatbelt use: always water heater temp set < 120 deg: Yes (will check) working smoke detector in home: Yes fire extinguisher in home: No (will get) carbon monox detector in home: Yes firearms in home: Yes firearms unloaded and locked: Yes do you feel safe at home: Yes Smoking Status: Former smoker Tobacco: How many years used: 5 Smokeless tobacco user: other (vape since 2020) quit status: considering quitting second hand exposure: Yes (occas) alcohol intake: former substance use type: former substance user and marijuana (cutting back) during the past year weight has: remained stable well-balanced diet: about half the time (poor appetite, uses Maijuana) daily servings fruits/ve-1 caffeine: No (limit to 200mg a day) 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 HEENT: Head atraumatic,EOMI, pupils reactive, face symmetric, moist mucous membranes CARDIOVASCULAR: Regular rate and rhythm without murmurs, rubs or gallops. RESPIRATORY: Breath sounds equal bilaterally, no wheezes rales or rhonchi. ABDOMEN: Soft, nontender. Normoactive bowel sounds all 4 quadrants. No guarding or rebound. : No CVA tenderness EXTREMITIES: Normal range of motion, no clubbing or edema. Neurovascularly intact NEUROLOGICAL: Alert and oriented x4.Normal gait and speech. Cranial nerves II through XII grossly intact. Carpal spasms SKIN: Warm, dry, no laceration, no petechiae, no rashes or lesions. Course Orders Ordered: ED Orders 03/04/24 13:13 CBC Auto Diff [Complete Blood Count AUTO DIFF] Stat CMP [Comprehensive Metabolic Panel] Stat Lactate (Lactic Acid) Stat Lipase Stat 03/04/24 13:15 CT abdomen pelvis w con Stat 03/04/24 13:40 Urinalysis and Microscopic Stat Urine Drug Screen, Rapid Stat Discontinued Medications Droperidol (Droperidol 5 Mg/2 Ml Vial) 2.5 mg IV NOW ONE Stop: 03/04/24 14:52 Last Admin: 03/04/24 14:59 Dose: 2.5 mg Documented By: DEJA Sodium Chloride (Normal Saline 0.9%) 1,000 mls @ 1,000 mls/hr IV BOLUS ONE Stop: 03/04/24 14:10 Last Infusion: 03/04/24 14:23 Dose: Infused Documented By: Admin: 03/04/24 13:27 Dose: 1,000 mls/hr Documented By: DEJA Sodium Chloride (Normal Saline 0.9%) 1,000 mls @ 1,000 mls/hr IV BOLUS ONE Stop: 03/04/24 14:50 Last Infusion: 03/04/24 15:04 Dose: Infused Documented By: Admin: 03/04/24 14:24 Dose: 1,000 mls/hr Documented By: THERESA Lorazepam (Lorazepam 2 Mg/Ml Inj) 0.5 mg IV NOW ONE Stop: 03/04/24 13:16 Last Admin: 03/04/24 13:24 Dose: 0.5 mg Documented By: DEJA Metoclopramide HCl (Metoclopramide 10 Mg/2 Ml Inj) 10 mg IV NOW ONE Stop: 03/04/24 13:12 Last Admin: 03/04/24 13:27 Dose: 10 mg Documented By: DEJA Pantoprazole Sodium (Pantoprazole 40 Mg Vial) 40 mg IV NOW ONE Stop: 03/04/24 13:17 Last Admin: 03/04/24 13:33 Dose: 40 mg Documented By: DEJA Vital Signs Vital signs: Vital Signs - 8 hr 03/04/24 12:55 03/04/24 13:41 03/04/24 13:41 Temperature 97.9 F Pulse Rate 83 78 Respiratory Rate 20 Blood Pressure 155/101 H 139/93 H Pulse Oximetry 99 100 Oxygen Delivery Method Room Air 03/04/24 14:00 03/04/24 14:00 03/04/24 14:30 Temperature Pulse Rate 84 79 Respiratory Rate Blood Pressure 141/92 H Pulse Oximetry 100 100 Oxygen Delivery Method 03/04/24 14:30 03/04/24 15:03 03/04/24 15:03 Temperature Pulse Rate 85 Respiratory Rate Blood Pressure 128/79 124/75 Pulse Oximetry 100 Oxygen Delivery Method 03/04/24 15:30 03/04/24 15:30 03/04/24 16:34 Temperature Pulse Rate 88 89 Respiratory Rate Blood Pressure 133/83 128/91 H Pulse Oximetry 99 98 Oxygen Delivery Method Room Air MDM - Nausea/Vomiting/Diarrhea Lab Data 03/04/24 13:13 03/04/24 13:13 Labs: Lab Results 03/04/24 03/04/24 03/04/24 Range/Units 13:13 13:40 13:40 WBC 16.3 H (4.5-11.0) X10^3/uL RBC 4.31 (4.0-5.2) X10^6/uL Hgb 13.3 (12.0-16.0) g/dL Hct 39.5 (36-46) % MCV 91.7 (80-100) fL MCH 30.8 (26-34) PG MCHC 33.6 (30-36) % RDW 12.4 (11.6-14.8) % Plt Count 482 H (150-400) X10^3/uL Neut % (Auto) 84.6 H (50-75) % Lymph % (Auto) 6.8 L (25-40) % [place] % (Auto) 8.3 (3-14) % Eos % (Auto) 0.0 L (2-4) % Baso % (Auto) 0.3 (0-2) % Neut # (Auto) 69915 H (7458-5818) /uL Lymph # (Auto) 1100 (1935-2701) /uL [place] # (Auto) 1300 H (0-900) /uL Eos # (Auto) 0 (0-450) /uL Baso # (Auto) 0 (0-100) /uL Sodium 137 (137-145) mmol/L Potassium 3.2 L (3.4-5.1) mmol/L Chloride 102 (98-107) mmol/L Carbon Dioxide 21 L (22-32) mmol/L BUN 3 L (7-17) mg/dL Creatinine 0.52 (0.52-1.04) mg/dL Estimated GFR > 60 (>60) mL/min BUN/Creatinine Ratio 5.8 L (6-22) Glucose 101 H (70-100) mg/dL Lactate 3.5 H (0.7-2.1) mmol/L Calcium 9.3 (8.4-10.2) mg/dL Total Bilirubin 1.0 (0.2-1.3) mg/dL AST 32 (14-36) IU/L ALT 34 (<35) IU/L Alkaline Phosphatase 40 (38-126) U/L Total Protein 7.9 (6.3-8.2) g/dL Albumin 5.1 H (3.5-5.0) g/dL Globulin 2.8 (1.7-4.1) g/dL Albumin/Globulin Ratio 1.8 (1.0-2.8) Lipase 39 (23-300) U/L Urine Color Yellow Urine Appearance Clear Urine pH 5.5 Normal (4.5-8.0) Ur Specific Palmer >=1.030 H (1.000-1.035) Urine Protein 2+ H (Negative) Urine Glucose (UA) 1+ H (Negative) g/dL Urine Ketones Negative (NEGATIVE) Urine Occult Blood Trace-intact (Negative) Urine Nitrate Negative (Negative) Urine Bilirubin Negative (NEGATIVE) Urine Urobilinogen 0.2 (0.2) E.U./dL Ur Leukocyte Esterase Negative (NEGATIVE) Urine RBC 0-1/hpf (0-5/HPF) Urine WBC 0-1/hpf (0-5/HPF) Ur Squamous Epith Cells 1-5 /hpf D (0-5/HPF) Amorphous Sediment 2+ Urine Bacteria None seen (None) Urine Mucus 2+ H (Negative) Ur Culture Indicated? Cult not indicated Vol Urine Centrifuged 10ml (spun) U Opiates 300ng/mL cut Negative (Negative) Ur Oxycodone Screen Negative (Negative) Urine Methadone Screen Negative (Negative) Ur Barbiturates Screen Negative (Negative) U Tricyclic Antidepress Negative (Negative) Ur Phencyclidine Scrn Negative (Negative) Ur Amphetamines Screen Negative (Negative) U Methamphetamines Scrn Negative (Negative) Ur MDMA Scrn (Ecstasy) Negative (Negative) U Benzodiazepines Scrn Negative (Negative) Urine Cocaine Screen Negative (Negative) U Marijuana (THC) Screen Positive H (Negative) Urine Specific Palmer Normal (Normal) Ur Creatinine Normal (Normal) 03/04/24 Range/Units 15:10 WBC (4.5-11.0) X10^3/uL RBC (4.0-5.2) X10^6/uL Hgb (12.0-16.0) g/dL Hct (36-46) % MCV (80-100) fL MCH (26-34) PG MCHC (30-36) % RDW (11.6-14.8) % Plt Count (150-400) X10^3/uL Neut % (Auto) (50-75) % Lymph % (Auto) (25-40) % [place] % (Auto) (3-14) % Eos % (Auto) (2-4) % Baso % (Auto) (0-2) % Neut # (Auto) (5162-8548) /uL Lymph # (Auto) (8455-2395) /uL [place] # (Auto) (0-900) /uL Eos # (Auto) (0-450) /uL Baso # (Auto) (0-100) /uL Sodium (137-145) mmol/L Potassium (3.4-5.1) mmol/L Chloride (98-107) mmol/L Carbon Dioxide (22-32) mmol/L BUN (7-17) mg/dL Creatinine (0.52-1.04) mg/dL Estimated GFR (>60) mL/min BUN/Creatinine Ratio (6-22) Glucose (70-100) mg/dL Lactate 1.5 (0.7-2.1) mmol/L Calcium (8.4-10.2) mg/dL Total Bilirubin (0.2-1.3) mg/dL AST (14-36) IU/L ALT (<35) IU/L Alkaline Phosphatase (38-126) U/L Total Protein (6.3-8.2) g/dL Albumin (3.5-5.0) g/dL Globulin (1.7-4.1) g/dL Albumin/Globulin Ratio (1.0-2.8) Lipase (23-300) U/L Urine Color Urine Appearance Urine pH (4.5-8.0) Ur Specific Palmer (1.000-1.035) Urine Protein (Negative) Urine Glucose (UA) (Negative) g/dL Urine Ketones (NEGATIVE) Urine Occult Blood (Negative) Urine Nitrate (Negative) Urine Bilirubin (NEGATIVE) Urine Urobilinogen (0.2) E.U./dL Ur Leukocyte Esterase (NEGATIVE) Urine RBC (0-5/HPF) Urine WBC (0-5/HPF) Ur Squamous Epith Cells (0-5/HPF) Amorphous Sediment Urine Bacteria (None) Urine Mucus (Negative) Ur Culture Indicated? Vol Urine Centrifuged U Opiates 300ng/mL cut (Negative) Ur Oxycodone Screen (Negative) Urine Methadone Screen (Negative) Ur Barbiturates Screen (Negative) U Tricyclic Antidepress (Negative) Ur Phencyclidine Scrn (Negative) Ur Amphetamines Screen (Negative) U Methamphetamines Scrn (Negative) Ur MDMA Scrn (Ecstasy) (Negative) U Benzodiazepines Scrn (Negative) Urine Cocaine Screen (Negative) U Marijuana (THC) Screen (Negative) Urine Specific Palmer (Normal) Ur Creatinine (Normal) Point of Care Testing Test Results Negative Urine Dip Bedside Urine Glucose 100 mg/dl Bedside Urine Bilirubin - Negative Bedside Urine Ketone +/- 5 Urine Specific Palmer 1.030 Bedside Urine Occult Blood + Bedside Urine pH 6.0 Bedside Urine Protein ++ 100 Bedside Urine Nitrite - Negative Bedside Urine Leukocytes - Negative Esterase Imaging Data CT scan - abdomen/pelvis: Radiologist's Impression: PROCEDURE: CT ABDOMEN PELVIS W CON INDICATIONS: on going vomiting TECHNIQUE: After the administration of intravenous contrast, axial sections acquired from the lung bases to the pubic symphysis. Coronal and sagittal reformats were performed. For radiation dose reduction, the following was used: automated exposure control, adjustment of mA and/or kV according to patient size. COMPARISON: [facility], CT, CT ABDOMEN PELVIS W CON, 04/02/2023, 12:27. FINDINGS: Image quality: Diagnostic. Lower Chest: No significant findings. ABDOMEN: Liver: No solid mass. Gallbladder: No radiopaque gallstones or wall thickening. Biliary ducts: No biliary dilation. Pancreas: No ductal dilation. Spleen: Size is within normal limits. Adrenal Glands: No adrenal nodules. Kidneys and Ureters: No hydronephrosis. No solid mass. No complex renal cystic lesion which requires follow up. Stomach and Bowel: The stomach demonstrates no significant abnormality. No dilated loops of small bowel are seen. Liquid stool is seen within the colon, including distally. No significant colonic abnormality is seen. Peritoneum: No abnormal intraperitoneal fluid. No free air. Ventral Wall: No significant ventral hernia. Abdominal Nodes: No retroperitoneal or mesenteric adenopathy by size criteria. Vessels: Aorta and inferior vena cava are normal in size. PELVIS: Pelvic Organs: The uterus appears normal for age. No adnexal masses are seen. Bladder: No bladder wall thickening, accounting for underdistention. Pelvic Nodes: No enlarged lymph nodes. Miscellaneous: No inguinal hernias are seen. Bones: No aggressive osseous abnormality. IMPRESSION: Negative for bowel obstruction. Liquid stool is seen within colon. Please correlate with clinical diarrhea. Dictated by: Yo Aguilar M.D. on 03/04/2024 at 12:[address] [facility] Narrative Medical decision making narrative: MDM CC: Nausea vomiting Complicating co-morbidities: Marijuana use Medical records reviewed: Previous ED visits Differential considered: Cyclic vomiting infection cholelithiasis bowel obstruction, pancreatitis Exam documented above, pertinent findings include: Carpal spasms appears to not feel well abdomen soft mildly tender nondistended Lab Test results independently reviewed as above. Pertinent findings: WBC 16.3, down from yesterday at 21.5, no anemia CMP mild hypokalemia potassium 3.2, creatinine 0.5 Lactate 3.5-->1.5 Bilirubin 1.0, improved from yesterday at 2.0, AST 32 ALT 34 alk-phos 40, lipase 39 Imaging studies independently reviewed: CT shows no obstruction and there is liquid stool in colon but patient not really complaining of diarrhea Treatments: IV fluids Reglan Ativan, droperidol Re-evaluations: 1451 patient re-evaluated carpal spasms have improved. She is feeling better but is asking to take a shower in the emergency department which I have told her is not an option. We will try a dose of droperidol Patient sleeping with droperidol overall much better. Discussion: Patient 23-year-old female presenting today for the 3rd time this week but only seen yesterday with ongoing nausea vomiting. Initially thought maybe she had a UTI however there was squamous cell so probably not. She would have significant leukocytosis but has actually improved today. Most of her blood work has improved accepts elevated lactate. I believe elevated lactate is due to anxiety reaction with carpal spasms it quickly came down with fluids. She shows no significant evidence of dehydration with vitals or blood work. She did receive 2 L of IV fluids she has urinated in the ED. Her abdomen was mildly tender. CT does not show any gross abnormality. She does use marijuana daily I suspect cyclic vomiting and hyperemesis Discussed with and patient about hyperventilation and carpopedal spasms. I do not actually think she is having allergic reaction to antibiotics or Macrobid. This time I do not think she needs to continue antibiotics especially with dirty urine yesterday. Blood cultures are still pending but so far negative. Discharge Plan Departure Patient Disposition: Home Clinical Impression: Cyclic vomiting syndrome Activity Restrictions/Additional Instructions: *You have been diagnosed with cyclic vomiting *What to do: At this time I am really not convinced that you have an infection or a do not think you need anymore antibiotics. Please try and stay hydrated *Continue to take medications as directed Phenergan suppositories every 6 hours if needed if other nausea medication isn't working *Follow up with your primary care provider in 2-3 days or call [phone] *Return to ER if you should have persistent vomiting inability to keep fluids down dizziness or lightheadedness or any new, worsening or concerning symptoms Prescriptions: New promethazine 25 mg suppository 25 mg AZ Q6H PRN (Reason: nausea and vomiting) Qty: 12 0RF No Action lidocaine HCl 4 % (40 mg/mL) solution 1 applic mucous membrane TID PRN (Reason: pain) Qty: 50 0RF Rx Instructions: Swish and spit metoclopramide HCl [Reglan] 10 mg tablet 10 mg PO Q6H PRN (Reason: nausea and vomiting) Qty: 20 0RF nitrofurantoin monohyd/m-cryst [Macrobid] 100 mg capsule 100 mg PO Q12H 7 Days Qty: 14 0RF Rx Instructions: must administer with a meal/food Referrals: Dar Salomon MD [Primary Care Provider] - Stand Alone Forms: Patient Portal/API
--- NOTE | 2024-03-04 13:15 | DI.CT.S_ITS ---
PROCEDURE: CT ABDOMEN PELVIS W CON INDICATIONS: on going vomiting TECHNIQUE: After the administration of intravenous contrast, axial sections acquired from the lung bases to the pubic symphysis. Coronal and sagittal reformats were performed. For radiation dose reduction, the following was used: automated exposure control, adjustment of mA and/or kV according to patient size. COMPARISON: [facility], CT, CT ABDOMEN PELVIS W CON, 04/02/2023, 12:27. FINDINGS: Image quality: Diagnostic. Lower Chest: No significant findings. ABDOMEN: Liver: No solid mass. Gallbladder: No radiopaque gallstones or wall thickening. Biliary ducts: No biliary dilation. Pancreas: No ductal dilation. Spleen: Size is within normal limits. Adrenal Glands: No adrenal nodules. Kidneys and Ureters: No hydronephrosis. No solid mass. No complex renal cystic lesion which requires follow up. Stomach and Bowel: The stomach demonstrates no significant abnormality. No dilated loops of small bowel are seen. Liquid stool is seen within the colon, including distally. No significant colonic abnormality is seen. Peritoneum: No abnormal intraperitoneal fluid. No free air. Ventral Wall: No significant ventral hernia. Abdominal Nodes: No retroperitoneal or mesenteric adenopathy by size criteria. Vessels: Aorta and inferior vena cava are normal in size. PELVIS: Pelvic Organs: The uterus appears normal for age. No adnexal masses are seen. Bladder: No bladder wall thickening, accounting for underdistention. Pelvic Nodes: No enlarged lymph nodes. Miscellaneous: No inguinal hernias are seen. Bones: No aggressive osseous abnormality. IMPRESSION: Negative for bowel obstruction. Liquid stool is seen within colon. Please correlate with clinical diarrhea. Dictated by: Yo Aguilar M.D. on 03/04/2024 at 12:53 Approved by: Yo Aguilar M.D. on 03/04/2024 at 12:56
[2024-03-04 13:24] LABS: Add Manual Diff / Slide Review NO; Basophils Absolute Auto 0 /uL (0-100); Basophils Percent Auto 0.3 % (0-2); Eosinophils Absolute Auto 0 /uL (0-450); Hematocrit 39.5 % (36-46); Hemoglobin 13.3 g/dL (12.0-16.0); Lymphocytes Absolute Auto 1100 /uL (1100-4500); Lymphocytes Percent Auto 6.8 % (25-40); Mean Corpuscular HGB Conc 33.6 % (30-36); Mean Corpuscular Hemoglobin 30.8 PG (26-34); Mean Corpuscular Volume 91.7 fL (80-100); Monocytes Absolute Auto 1300 /uL (0-900); Monocytes Percent Auto 8.3 % (3-14); Neutrophils Absolute Auto 13800 /uL (1500-7000); Neutrophils Percent Auto 84.6 % (50-75); Platelet Count 482 X10^3/uL (150-400); Red Blood Cell Count 4.31 X10^6/uL (4.0-5.2); Red Cell Distribution Width 12.4 % (11.6-14.8); White Blood Cell Count 16.3 X10^3/uL (4.5-11.0)
[2024-03-04] MEDS: LORazepam 2 MG/ML INJ 0.5 MG IV (13:24)
[2024-03-04] MEDS: SODIUM CHLORIDE 0.9% 1,000 ML 1000 ML IV ×2 (13:27→14:24)
[2024-03-04] MEDS: METOCLOPRAMIDE 10 MG/2 ML INJ IV (13:27)
[2024-03-04] MEDS: PANTOPRAZOLE 40 MG VIAL IV (13:33)
[2024-03-04 13:36] LABS: Alanine Aminotransferase 34 IU/L (<35); Albumin 5.1 g/dL (3.5-5.0); Albumin Globulin Ratio 1.8 (1.0-2.8); Alkaline Phosphatase 40 U/L (38-126); Aspartate Aminotransferase 32 IU/L (14-36); BUN Creatinine Ratio 5.8 (6-22); Blood Urea Nitrogen 3 mg/dL (7-17); Calcium 9.3 mg/dL (8.4-10.2); Carbon Dioxide 21 mmol/L (22-32); Chloride 102 mmol/L (98-107); Estimated Glomerular Filt Rate > 60 mL/min (>60); Globulin 2.8 g/dL (1.7-4.1); Glucose 101 mg/dL (70-100); HEMOLYSIS < 15 (0-50); Potassium 3.2 mmol/L (3.4-5.1); Sodium 137 mmol/L (137-145); Total Protein 7.9 g/dL (6.3-8.2)
[2024-03-04 13:37] LABS: Lactate (Lactic Acid) 3.5 mmol/L (0.7-2.1); Lipase 39 U/L (23-300)
[2024-03-04 13:57] LABS: Appearance Urine UA CLEAR; Bilirubin Urine UA NEGATIVE (NEGATIVE); Color Urine UA YELLOW; Glucose Urine UA 1+ g/dL (Negative); Ketones Urine UA NEGATIVE (NEGATIVE); Leukocyte Esterase Urine UA NEGATIVE (NEGATIVE); Nitrite Urine UA NEGATIVE (Negative); Occult Blood Urine UA TRACE-INTACT (Negative); Protein Urine UA 2+ (Negative); Specific Gravity Urine UA >=1.030 (1.000-1.035); Urobilinogen Urine UA 0.2 E.U./dL (0.2)
[2024-03-04 13:59] LABS: pH Urine UA 5.5 (4.5-8.0)
[2024-03-04 14:03] LABS: UR Morphine/Opiate cutoff 300 Negative (Negative); Ur Creatinine Normal (Normal); Ur Specific Gravity Normal (Normal); Urine Amphetamines Negative (Negative); Urine Barbiturates Negative (Negative); Urine Benzodiazepines Negative (Negative); Urine Cocaine Negative (Negative); Urine MDMA Negative (Negative); Urine Methadone Negative (Negative); Urine Methamphetamines Negative (Negative); Urine Oxycodone Negative (Negative); Urine Phencyclidine Negative (Negative); Urine Tetrahydrocannabinol Positive (Negative); Urine Tricyclic Antidepressant Negative (Negative); Urine pH Normal (Normal)
[2024-03-04 14:04] LABS: Bacteria Urine None Seen; RBC Urine 0-1/HPF (0-5/HPF); Urine Volume 10mL (spun); WBC Urine 0-1/HPF (0-5/HPF)
[2024-03-04 14:05] LABS: Amorphous Sediment Urine 2+; Culture Indicated Urine Cult Not Indicated; Mucus Urine 2+ (Negative); Squamous Epithelial Cell Urine 1-5 /HPF (0-5/HPF)
[2024-03-04 14:57] LABS: Reflexed Lactate in 2 Hours Y
[2024-03-04] MEDS: DROPERIDOL 5 MG/2 ML VIAL 2.5 MG IV (14:59)
[2024-03-04 15:39] LABS: Lactate 2HR (Lactic Acid Rflx) 1.5 mmol/L (0.7-2.1)
== END 2024-03-04 16:41 | disposition home or self-care (01) ==
PROVIDERS: Emergency Provider Emergency Medicine; PCP Family Medicine
DX: R11.15 Cyclical vomiting syndrome unrelated to migraine (principal); F12.90 Cannabis use, unspecified, uncomplicated
CPT/HCPCS: 36415; 74177; 80053; 80305; 81001; 81003; 81025; 83605; 83690; 85025; 96361; 96374; 96375; 99284; J1790; J2060; J2470; J2765; Q9967

== ENCOUNTER 2024-03-06 11:40 | Observation (INO) | payer OTHER, MEDICAID, SELFPAY ==
[2024-03-06] VITALS (13 sets, daily range): BP systolic 135–168; BP diastolic 77–103; PULSE 69–84; RESP 16–18; TEMP 36.4–37.4; O2SAT 94–100; BMI 17.6
--- NOTE | 2024-03-06 11:46 | ED_ITS ---
HPI - General Adult General Chief complaint: Abdominal Pain Stated complaint: NV Time Seen by Provider: 03/06/24 11:40 History of Present Illness HPI narrative: 23-year-old woman presents with persistent nausea and vomiting seen on the and the for similar complaints. She states it is now been 5 days with continued abdominal pain, vomiting she has not been able to eat or drink, she has not been able to sleep and she is utterly miserable. She states she has not had any marijuana during this timeframe. She did note diarrhea starting yesterday afternoon. Initially concerned she had a urinary tract infection and was given ceftriaxone. Urine was not cultured due to multiple squamous cells at that time. When returning yesterday she responded best to droperidol and also was requesting to take hot showers seems to help with her vomiting. CT scan of the abdomen and pelvis was done yesterday that is suggested some liquid stool within the colon no other acute findings. Related Data Previous Rx's Medication Instructions Recorded lidocaine HCl 4 % (40 mg/mL) 1 applic mucous membrane TID PRN 08/04/23 mucosal solution pain #50 mL metoclopramide HCl 10 mg tablet 10 mg PO Q6H PRN nausea and 03/03/24 (Reglan) vomiting #20 tabs nitrofurantoin 100 mg PO Q12H 7 days #14 caps 03/03/24 monohydrate/macrocrystals 100 mg capsule (Macrobid) promethazine 25 mg rectal 25 mg KS Q6H PRN nausea and 03/04/24 suppository vomiting #12 ea Allergies Allergy/AdvReac Type Severity Reaction Status Date / Time amoxicillin Allergy Intermediate Verified 03/06/24 11:48 Penicillins Allergy Intermediate Verified 03/06/24 11:48 cephalexin Allergy Unknown Verified 03/06/24 11:48 All Cillins Allergy Intermediate Uncoded 03/02/24 16:19 Review of Systems Review of Systems Narrative: Pertinent positive and negative findings as per HPI Patient History Medical History Asthma (~2019) History of drug use Borderline personality disorder (~2017) Depression (~2004) Anxiety (~2004) Migraine UTI (urinary tract infection) Hyperemesis gravidarum Susceptible to varicella (non-immune), currently Size of fetus inconsistent with dates in third trimester Poor weight gain of Surgical History No history of previous surgery Family History Mother Mental health problem Sister Mental health problem Social History marital status: unmarried,living together (engaged) number of children: 0 household members: significant other lives independently: Yes housing: apartment pets and animals: Yes (Cat - aware of toxoplasmosis) education level: high school (GED) occupational status: unemployed current occupational exposures/hazards: No special isabella needs: No seatbelt use: always water heater temp set < 120 deg: Yes (will check) working smoke detector in home: Yes fire extinguisher in home: No (will get) carbon monox detector in home: Yes firearms in home: Yes firearms unloaded and locked: Yes do you feel safe at home: Yes Smoking Status: Former smoker Tobacco: How many years used: 5 Smokeless tobacco user: other (vape since 2020) quit status: considering quitting second hand exposure: Yes (occas) alcohol intake: former substance use type: former substance user and marijuana (cutting back) during the past year weight has: remained stable well-balanced diet: about half the time (poor appetite, uses Maijuana) daily servings fruits/ve-1 caffeine: No (limit to 200mg a day) 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 Full and symmetrical air movement Cardiac: Regular rate and rhythm no murmurs no bruits Abdomen: Soft, nontender, no rebound or guarding Skin: Poor turgor, pale Neurologic: Grossly neurologically intact with no obvious asymmetries or abnormalities Extremities: No trauma, no edema Psych: Cooperative, appropriate insight and affect Course Orders Ordered: ED Orders 03/06/24 11:54 Urinalysis and Microscopic Stat 03/06/24 11:55 GI Panel (Film Array) Stat 03/06/24 11:57 Complete Blood Count AUTO DIFF Stat Comprehensive Metabolic Panel Stat Lactate (Lactic Acid) Stat Lipase Stat Magnesium Stat Hydromorphone HCl (Hydromorphone 0.5 Mg Inj) 0.5 mg IV Q15MIN PRN PRN Reason: Pain, Discontinued Medications Diphenhydramine HCl (Diphenhydramine 50 Mg/Ml Vial) 25 mg IV NOW ONE Stop: 03/06/24 11:54 Last Admin: 03/06/24 12:00 Dose: 25 mg Documented By: CTS Droperidol (Droperidol 5 Mg/2 Ml Vial) 2.5 mg IV NOW ONE Stop: 03/06/24 11:54 Last Admin: 03/06/24 12:00 Dose: 2.5 mg Documented By: CTS Sodium Chloride (Normal Saline 0.9%) 1,000 mls @ 1,000 mls/hr IV BOLUS ONE Stop: 03/06/24 12:52 Last Infusion: 03/06/24 13:01 Dose: Infused Documented By: Admin: 03/06/24 12:00 Dose: 1,000 mls/hr Documented By: CTS Sodium Chloride (Normal Saline 0.9%) 1,000 mls @ 1,000 mls/hr IV BOLUS ONE Stop: 03/06/24 12:53 Last Admin: 03/06/24 12:09 Dose: Not Given Documented By: Vital Signs Vital signs: Vital Signs - 8 hr 03/06/24 11:42 03/06/24 11:44 03/06/24 11:45 Temperature 98.5 F Pulse Rate 69 70 79 Respiratory Rate 16 Blood Pressure 168/103 H Pulse Oximetry 100 100 98 Oxygen Delivery Method Room Air 03/06/24 12:00 03/06/24 12:00 03/06/24 12:28 Temperature Pulse Rate 72 84 Respiratory Rate Blood Pressure 147/82 H Pulse Oximetry 100 94 Oxygen Delivery Method 03/06/24 12:30 03/06/24 12:34 Temperature Pulse Rate 81 Respiratory Rate Blood Pressure 137/79 Pulse Oximetry 100 Oxygen Delivery Method Medical Decision Making Lab Data 03/06/24 11:57 03/06/24 11:57 Labs: Lab Results 03/06/24 Range/Units 11:57 WBC 17.0 H (4.5-11.0) X10^3/uL RBC 4.15 (4.0-5.2) X10^6/uL Hgb 12.9 (12.0-16.0) g/dL Hct 37.8 (36-46) % MCV 91.1 (80-100) fL MCH 31.1 (26-34) PG MCHC 34.2 (30-36) % RDW 12.4 (11.6-14.8) % Plt Count 545 H (150-400) X10^3/uL Neut % (Auto) 79.3 H (50-75) % Lymph % (Auto) 10.2 L (25-40) % [place] % (Auto) 9.6 (3-14) % Eos % (Auto) 0.6 L (2-4) % Baso % (Auto) 0.3 (0-2) % Neut # (Auto) 42174 H (2504-6177) /uL Lymph # (Auto) 1700 (9851-1239) /uL [place] # (Auto) 1600 H (0-900) /uL Eos # (Auto) 100 (0-450) /uL Baso # (Auto) 100 (0-100) /uL Sodium 138 (137-145) mmol/L Potassium 3.5 (3.4-5.1) mmol/L Chloride 105 (98-107) mmol/L Carbon Dioxide 25 (22-32) mmol/L BUN 12 (7-17) mg/dL Creatinine 0.56 (0.52-1.04) mg/dL Estimated GFR > 60 (>60) mL/min BUN/Creatinine Ratio 21.4 (6-22) Glucose 114 H (70-100) mg/dL Lactate 1.3 (0.7-2.1) mmol/L Calcium 8.6 (8.4-10.2) mg/dL Magnesium 2.0 (1.6-2.3) mg/dL Total Bilirubin 1.0 (0.2-1.3) mg/dL AST 28 (14-36) IU/L ALT 33 (<35) IU/L Alkaline Phosphatase 46 (38-126) U/L Total Protein 6.8 (6.3-8.2) g/dL Albumin 4.3 (3.5-5.0) g/dL Globulin 2.5 (1.7-4.1) g/dL Albumin/Globulin Ratio 1.7 (1.0-2.8) Lipase 22 L (23-300) U/L MDM Narrative Medical decision making narrative: CC: Day 5 of continuous vomiting Complicating co-morbidities: History of hyperemesis gravidarum requiring PICC line. marijuana use Data collected from: patient Medical records reviewed: Notes from the and with similar complaints including CT scan from the are reviewed Differential considered: She does use marijuana and does note that hot showers seemed to help this could certainly be cannabinoid hyperemesis syndrome. With increasing diarrhea acute infectious diarrhea etiology is entertained, other gastroparesis Exam documented above, pertinent findings include: Patient is thin, dehydrated dry heaving and looks early miserable. She does not have an acute surgical abdomen on exam. Lab Test results independently reviewed as above. Pertinent findings: CBC shows persistent leukocytosis at 17.0 which is lower than the highest of 22.4. Neutrophil percentage has come down from a high of 94% to 79.3% Chemistries are completely unremarkable Imaging studies independently reviewed: CT scan of the abdomen done on March 04 was reviewed. With similar findings no evidence of acute surgical abdomen it did not feel that this needed to be repeated today Treatments: 2 L of fluid, droperidol, Benadryl Discussion: 23-year-old woman on day 5 of persistent vomiting unable to eat or drink diarrhea starting now for her 3rd visit to the emergency department we will anticipate hospitalization for continued observation and continuous hydration with IV support for her nausea until she is able to tolerate intake. Care is reviewed with the admitting hospitalist. He will admit her for further evaluation. At this time aside from the the events of her dry heaves and vomiting I do not have an explanation for the significant leukocytosis but I do not see a source for infection. Antibiotics are not started. Discharge Plan Departure Patient Disposition: Admitted as Observation Clinical Impression: Nausea & vomiting Qualifiers: Vomiting type: unspecified Qualified Code(s): R11.2 - Nausea with vomiting, unspecified Abdominal pain Qualifiers: Abdominal location: generalized Qualified Code(s): R10.84 - Generalized abdominal pain Prescriptions: No Action lidocaine HCl 4 % (40 mg/mL) solution 1 applic mucous membrane TID PRN (Reason: pain) Qty: 50 0RF Rx Instructions: Swish and spit metoclopramide HCl [Reglan] 10 mg tablet 10 mg PO Q6H PRN (Reason: nausea and vomiting) Qty: 20 0RF nitrofurantoin monohyd/m-cryst [Macrobid] 100 mg capsule 100 mg PO Q12H 7 Days Qty: 14 0RF Rx Instructions: must administer with a meal/food promethazine 25 mg suppository 25 mg KS Q6H PRN (Reason: nausea and vomiting) Qty: 12 0RF Referrals: Dar Salomon MD [Primary Care Provider] - Admit Date/Time: 03/06/24 13:11
[2024-03-06] MEDS: SODIUM CHLORIDE 0.9% 1,000 ML 1000 ML IV (12:00)
[2024-03-06] MEDS: DROPERIDOL 5 MG/2 ML VIAL 2.5 MG IV (12:00)
[2024-03-06] MEDS: diphenhydrAMINE 50 MG/ML VIAL 25 MG IV (12:00)
[2024-03-06 12:06] LABS: Add Manual Diff / Slide Review NO; Basophils Absolute Auto 100 /uL (0-100); Basophils Percent Auto 0.3 % (0-2); Eosinophils Absolute Auto 100 /uL (0-450); Eosinophils Percent Auto 0.6 % (2-4); Hematocrit 37.8 % (36-46); Hemoglobin 12.9 g/dL (12.0-16.0); Lymphocytes Absolute Auto 1700 /uL (1100-4500); Lymphocytes Percent Auto 10.2 % (25-40); Mean Corpuscular HGB Conc 34.2 % (30-36); Mean Corpuscular Hemoglobin 31.1 PG (26-34); Mean Corpuscular Volume 91.1 fL (80-100); Monocytes Absolute Auto 1600 /uL (0-900); Monocytes Percent Auto 9.6 % (3-14); Neutrophils Absolute Auto 13500 /uL (1500-7000); Neutrophils Percent Auto 79.3 % (50-75); Platelet Count 545 X10^3/uL (150-400); Red Blood Cell Count 4.15 X10^6/uL (4.0-5.2); Red Cell Distribution Width 12.4 % (11.6-14.8)
[2024-03-06 12:17] LABS: Alanine Aminotransferase 33 IU/L (<35); Albumin 4.3 g/dL (3.5-5.0); Albumin Globulin Ratio 1.7 (1.0-2.8); Alkaline Phosphatase 46 U/L (38-126); Aspartate Aminotransferase 28 IU/L (14-36); BUN Creatinine Ratio 21.4 (6-22); Blood Urea Nitrogen 12 mg/dL (7-17); Calcium 8.6 mg/dL (8.4-10.2); Carbon Dioxide 25 mmol/L (22-32); Chloride 105 mmol/L (98-107); Estimated Glomerular Filt Rate > 60 mL/min (>60); Globulin 2.5 g/dL (1.7-4.1); Glucose 114 mg/dL (70-100); HEMOLYSIS 24 (0-50); Lipase 22 U/L (23-300); Potassium 3.5 mmol/L (3.4-5.1); Sodium 138 mmol/L (137-145); Total Protein 6.8 g/dL (6.3-8.2)
[2024-03-06 12:18] LABS: Lactate (Lactic Acid) 1.3 mmol/L (0.7-2.1)
[2024-03-06] MEDS: SODIUM CHLORIDE 0.9% 1,000 ML 150 ML IV ×2 (13:20→20:06)
--- NOTE | 2024-03-06 13:30 | PM.HP.1 ---
History of Present Illness History of Present Illness Date Patient Seen: 03/06/24 Chief complaint: NV Narrative: Summary: 23-year-old female with no significant past history presents with nausea and vomiting for the past 5 days. She was also had intermittent abdominal pain. She has a history of marijuana use but none recently. She did have some diarrhea that began just yesterday. There was also some dysuria and concern about a urinary tract infection. She was given ceftriaxone in the emergency department. She notes her symptoms did improve with a warm shower. No one at home is ill with nausea, or vomiting. S: She has been nauseated and vomiting for 100 hours. She also notes some diarrhea for 2 days. Intermittent flex blood in the vomit and the stool. She lives at home alone with her 2-year-old. She [place] She does not know where her parents are these days. She has general abdominal discomfort. She denies a headache. No recent fevers, or chills. No abdominal distention. She does use marijuana ongoing basis but not the last 5 days due to being ill. Being in the warm shower does make her feel better. She did respond well to droperidol and Benadryl in the emergency department. [facility] Medical History Asthma (~2019) History of drug use Borderline personality disorder (~2018) Depression (~2005) Anxiety (~2005) Migraine UTI (urinary tract infection) Hyperemesis gravidarum Susceptible to varicella (non-immune), currently Size of fetus inconsistent with dates in third trimester Poor weight gain of Surgical History No history of previous surgery Family History Mother Mental health problem Sister Mental health problem Social History marital status: unmarried,living together (engaged) number of children: 0 household members: significant other lives independently: Yes housing: apartment pets and animals: Yes (Cat - aware of toxoplasmosis) education level: high school (GED) occupational status: unemployed current occupational exposures/hazards: No special isabella needs: No seatbelt use: always water heater temp set < 120 deg: Yes (will check) working smoke detector in home: Yes fire extinguisher in home: No (will get) carbon monox detector in home: Yes firearms in home: Yes firearms unloaded and locked: Yes do you feel safe at home: Yes Smoking Status: Former smoker Tobacco: How many years used: 5 Smokeless tobacco user: other (vape since 2020) quit status: considering quitting second hand exposure: Yes (occas) alcohol intake: former substance use type: former substance user and marijuana (cutting back) during the past year weight has: remained stable well-balanced diet: about half the time (poor appetite, uses Maijuana) daily servings fruits/ve-1 caffeine: No (limit to 200mg a day) 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 Home Medications and Allergies Home Medications Medication Instructions Recorded Confirmed Type lidocaine HCl 4 % (40 mg/mL) 1 applic mucous membrane TID PRN 08/04/23 08/04/23 Rx mucosal solution pain #50 mL metoclopramide HCl 10 mg tablet 10 mg PO Q6H PRN nausea and 03/03/24 Rx (Reglan) vomiting #20 tabs nitrofurantoin 100 mg PO Q12H 7 days #14 caps 03/03/24 Rx monohydrate/macrocrystals 100 mg capsule (Macrobid) promethazine 25 mg rectal 25 mg [place] Q6H PRN nausea and 03/04/24 Rx suppository vomiting #12 ea Allergies Allergy/AdvReac Type Severity Reaction Status Date / Time amoxicillin Allergy Intermediate Verified 03/06/24 11:48 Penicillins Allergy Intermediate Verified 03/06/24 11:48 cephalexin Allergy Unknown Verified 03/06/24 11:48 All Cillins Allergy Intermediate Uncoded 03/02/24 16:19 Review of Systems Review of Systems Narrative: All else reviewed and otherwise unremarkable except as noted in the history and physical. Exam Vital Signs (past 8 hours): - 03/06/24 11:42 03/06/24 11:44 03/06/24 11:45 Temperature 98.5 F Pulse Rate 69 70 79 Respiratory Rate 16 Blood Pressure 168/103 H Pulse Oximetry 100 100 98 Oxygen Delivery Method Room Air 03/06/24 12:00 03/06/24 12:00 09/30/24 12:28 Temperature Pulse Rate 72 84 Respiratory Rate Blood Pressure 147/82 H Pulse Oximetry 100 94 Oxygen Delivery Method 03/06/24 12:30 03/06/24 12:34 Temperature Pulse Rate 81 Respiratory Rate Blood Pressure 137/79 Pulse Oximetry 100 Oxygen Delivery Method Oxygen Delivery Method Room Air Narrative Exam Narrative: NAD, alert and oriented, fluent speech, flat affect and minimal conversation. Underweight. Normocephalic skull, EOMI, anicteric sclera, symmetric pupils. Oropharynx unremarkable, no droop. Neck supple, midline trachea, no adenopathy. Lungs clear, normal rate and effort. Heart regular, no murmur gallop or rub. Abdomen is soft, non distended and non tender. Extremities are free of edema. Skin is free of rash or lesions. Joints are not swollen or deformed. Judgment appears to be abnormal. Objective Labs 03/06/24 11:57 03/06/24 11:57 Labs: Laboratory Results - last 24 hr 03/06/24 11:57 WBC 17.0 H RBC 4.15 Hgb 12.9 Hct 37.8 MCV 91.1 MCH 31.1 MCHC 34.2 RDW 12.4 Plt Count 545 H Neut % (Auto) 79.3 H Lymph % (Auto) 10.2 L [place] % (Auto) 9.6 Eos % (Auto) 0.6 L Baso % (Auto) 0.3 Neut # (Auto) 67873 H Lymph # (Auto) 1700 [place] # (Auto) 1600 H Eos # (Auto) 100 Baso # (Auto) 100 Sodium 138 Potassium 3.5 Chloride 105 Carbon Dioxide 25 BUN 12 Creatinine 0.56 Estimated GFR > 60 BUN/Creatinine Ratio 21.4 Glucose 114 H Lactate 1.3 Calcium 8.6 Magnesium 2.0 Total Bilirubin 1.0 AST 28 ALT 33 Alkaline Phosphatase 46 Total Protein 6.8 Albumin 4.3 Globulin 2.5 Albumin/Globulin Ratio 1.7 Lipase 22 L Assessment & Plan Assessment & Plan narrative: 1. Nausea, vomiting, and diarrhea. Present on admission and active. 2. Volume depletion, present on admission and active. 3. Leukocytosis, present on admission and active. 4. History of marijuana use, none recently. 5. History of hyperemesis gravidarum, not present on admission are active. Plan: -IV fluids and antiemetics, we will continue droperidol and Benadryl q.6 hours as needed. -monitor white count, and electrolytes. -blood cultures and stool PCR. Full resuscitation. BERNARDA is March 07. Time-Based Coding :: 30 min spent with patient and on the chart (including review of chart, obtaining history, exam, reviewing outside data, placing orders, documenting exam and treatment plan, and counseling patient) on 03/06. Quality MIPS - Admit I confirm the patient?s Advance Care Plan is present, Code status is documented, Surrogate decision maker is in patient?s record [If Yes, STOP here]: Yes
[2024-03-06 13:33] LABS: Appearance Urine UA SL CLOUDY; Bilirubin Urine UA NEGATIVE (NEGATIVE); Color Urine UA YELLOW; Glucose Urine UA NEGATIVE (Negative); Ketones Urine UA NEGATIVE (NEGATIVE); Leukocyte Esterase Urine UA NEGATIVE (NEGATIVE); Nitrite Urine UA NEGATIVE (Negative); Occult Blood Urine UA NEGATIVE (Negative); Protein Urine UA 1+ (Negative); Specific Gravity Urine UA 1.015 (1.000-1.035); Urobilinogen Urine UA 0.2 E.U./dL (0.2)
[2024-03-06 13:35] LABS: Urine Volume 10mL (spun)
[2024-03-06 13:37] LABS: Bacteria Urine None Seen; Culture Indicated Urine Cult Not Indicated; RBC Urine None Seen (0-5/HPF); Squamous Epithelial Cell Urine None Seen (0-5/HPF); WBC Urine None Seen (0-5/HPF)
--- NOTE | 2024-03-06 14:54 | PC.NURSE ---
Patient admitted for uncontrolled nausea and vomiting at home. She has been to the ER three times this week and was unable to get this under control at home. She is independent in the room, asked to take a hot shower, and has been tolerating apple juice. No emesis at this time.
[2024-03-06] MEDS: ONDANSETRON 4 MG/2 ML INJ IV ×2 (16:30→21:05)
[2024-03-06 17:36] LABS: Pregnancy Test Urine Negative (Negative)
[2024-03-06 19:53] LABS: Adenovirus F 40/41 Not Detected (Not Detect); Astrovirus Not Detected (Not Detect); Campylobacter Not Detected (Not Detect); Clostridium difficile toxin AB Not Detected (Not Detect); Cryptosporidium Not Detected (Not Detect); Cyclospora cayetanensis Not Detected (Not Detect); Entamoeba histolytica Not Detected (Not Detect); Enteroaggregative E.coli Not Detected (Not Detect); Enteropathogenic E.coli Not Detected (Not Detect); Enterotoxigenic E.coli It/st Not Detected (Not Detect); Giardia lamblia Not Detected (Not Detect); Norovirus GI/GII Not Detected (Not Detect); Plesiomonsa shigelloides Not Detected (Not Detect); Rotavirus A Not Detected (Not Detect); Salmonella Not Detected (Not Detect); Sapovirus Not Detected (Not Detect); Shiga-like toxin-prod E.coli Not Detected (Not Detect); Shigella/Enteroinvasive E.coli Not Detected (Not Detect); Vibrio Not Detected (Not Detect); Vibrio cholerae Not Detected (Not Detect); Yersinia enterocolitica Not Detected (Not Detect)
[2024-03-07] MEDS: DROPERIDOL 5 MG/2 ML VIAL 1.25 MG IV (02:20)
[2024-03-07] MEDS: SODIUM CHLORIDE 0.9% 1,000 ML 150 ML IV (02:21)
[2024-03-07 06:55] LABS: Add Manual Diff / Slide Review NO; Basophils Absolute Auto 100 /uL (0-100); Basophils Percent Auto 0.5 % (0-2); Eosinophils Absolute Auto 100 /uL (0-450); Hematocrit 34.1 % (36-46); Hemoglobin 11.9 g/dL (12.0-16.0); Lymphocytes Absolute Auto 1900 /uL (1100-4500); Mean Corpuscular HGB Conc 35.1 % (30-36); Mean Corpuscular Hemoglobin 31.7 PG (26-34); Mean Corpuscular Volume 90.4 fL (80-100); Monocytes Absolute Auto 1200 /uL (0-900); Monocytes Percent Auto 9.4 % (3-14); Neutrophils Absolute Auto 9100 /uL (1500-7000); Neutrophils Percent Auto 74.1 % (50-75); Platelet Count 448 X10^3/uL (150-400); Red Blood Cell Count 3.77 X10^6/uL (4.0-5.2); Red Cell Distribution Width 12.3 % (11.6-14.8); White Blood Cell Count 12.3 X10^3/uL (4.5-11.0)
[2024-03-07 07:00] VITALS: BP 157/96; PULSE 69; RESP 16; TEMP 36.4; O2SAT 98
[2024-03-07] MEDS: ONDANSETRON 4 MG/2 ML INJ IV (07:02)
[2024-03-07 07:06] LABS: BUN Creatinine Ratio 12.2 (6-22); Blood Urea Nitrogen 6 mg/dL (7-17); Calcium 8.2 mg/dL (8.4-10.2); Carbon Dioxide 22 mmol/L (22-32); Chloride 102 mmol/L (98-107); Estimated Glomerular Filt Rate > 60 mL/min (>60); Glucose 108 mg/dL (70-100); HEMOLYSIS < 15 (0-50); Potassium 2.9 mmol/L (3.4-5.1); Sodium 132 mmol/L (137-145)
--- NOTE | 2024-03-07 09:28 | PM.DS.1 ---
History of Present Illness History of Present Illness Date Patient Seen: 03/07/24 Time Patient Seen: 09:29 Chief complaint: NV Narrative: Per admitting provider, Summary: 23-year-old female with no significant past history presents with nausea and vomiting for the past 5 days. She was also had intermittent abdominal pain. She has a history of marijuana use but none recently. She did have some diarrhea that began just yesterday. There was also some dysuria and concern about a urinary tract infection. She was given ceftriaxone in the emergency department. She notes her symptoms did improve with a warm shower. No one at home is ill with nausea, or vomiting. S: She has been nauseated and vomiting for 100 hours. She also notes some diarrhea for 2 days. Intermittent flex blood in the vomit and the stool. She lives at home alone with her 2-year-old. [place] She does not know where her parents are these days. She has general abdominal discomfort. She denies a headache. No recent fevers, or chills. No abdominal distention. She does use marijuana ongoing basis but not the last 5 days due to being ill. Being in the warm shower does make her feel better. She did respond well to droperidol and Benadryl in the emergency department. Discharge Providers Provider Date of admission: 03/06/24 13:11 Discharge Date: 03/07/24 Primary care physician: Dar Salomon MD Consults: 03/06/24 16:21 Consult to Dietitian, Adult Routine Comment: Reason For Exam: weight loss Discharge provider: Dar Lantigua DO Summary Hospital Course Discharge Diagnosis: 1. Nausea, vomiting, and diarrhea. Present on admission and active. 2. Volume depletion, present on admission and active. 3. Leukocytosis, present on admission and active. 4. History of marijuana use, none recently. 5. History of hyperemesis gravidarum, not present on admission are active. Hospital Course: This is a 23 year old female who was admitted with intractable nausea, vomiting and diarrhea along with dehydration. She improved with IV fluids, antiemetics. Stool PCR was negative for any infectious etiologies. The following morning she felt improved, and was tolerating a diet. She was given a prescription for ondansetron. No follow up is recommended unless symptoms return or are ongoing. Time Spent with Patient Time spent: Less than 30 minutes Exam Vital Signs (past 8 hours): Oxygen Delivery Method Room Air Oxygen Flow Rate 0 Narrative Exam Narrative: Gen: WDWN, no acute distress Abd: S ND Ext: no edema Objective Labs 03/07/24 05:50 03/07/24 05:50 Labs: Laboratory Results - last 24 hr 03/06/24 03/06/24 03/06/24 11:57 13:12 18:30 WBC 17.0 H RBC 4.15 Hgb 12.9 Hct 37.8 MCV 91.1 MCH 31.1 MCHC 34.2 RDW 12.4 Plt Count 545 H Neut % (Auto) 79.3 H Lymph % (Auto) 10.2 L [place] % (Auto) 9.6 Eos % (Auto) 0.6 L Baso % (Auto) 0.3 Neut # (Auto) 69155 H Lymph # (Auto) 1700 [place] # (Auto) 1600 H Eos # (Auto) 100 Baso # (Auto) 100 Sodium 138 Potassium 3.5 Chloride 105 Carbon Dioxide 25 BUN 12 Creatinine 0.56 Estimated GFR > 60 BUN/Creatinine Ratio 21.4 Glucose 114 H Lactate 1.3 Calcium 8.6 Magnesium 2.0 Total Bilirubin 1.0 AST 28 ALT 33 Alkaline Phosphatase 46 Total Protein 6.8 Albumin 4.3 Globulin 2.5 Albumin/Globulin Ratio 1.7 Lipase 22 L Urine Color Yellow Urine Appearance Sl cloudy Urine pH 7.0 Ur Specific [place] 1.015 Urine Protein 1+ H Urine Glucose (UA) Negative Urine Ketones Negative Urine Occult Blood Negative Urine Nitrate Negative Urine Bilirubin Negative Urine Urobilinogen 0.2 Ur Leukocyte Esterase Negative Urine RBC None seen Urine WBC None seen Ur Squamous Epith Cells None seen Urine Bacteria None seen Ur Culture Indicated? Cult not indicated Vol Urine Centrifuged 10ml (spun) Urine Test Negative Stl C. cayetanensis PCR Not detected Stool Rotavirus (PCR) Not detected Stool Adenovirus (PCR) Not detected Stool Astrovirus (PCR) Not detected Stool Cryptosporidium PCR Not detected Stl E.coli Shiga Tox PCR Not detected St Sh/Enteroin Ecoli PCR Not detected Stl Enterotoxigenic E PCR Not detected Stool EPEC (PCR) Not detected Stl E. histolytica PCR Not detected Stool Giardia Lamblia PCR Not detected Stool Sapovirus (PCR) Not detected Stl P. shigelloides PCR Not detected St Y.enterocolitica PCR Not detected Stool Vibrio (PCR) Not detected Stl Vibrio cholerae PCR Not detected Stl Enteroaggr Ecoli PCR Not detected Stl Norovirus GI/GII PCR Not detected Campylobacter (PCR) Not detected C. difficile Tox (PCR) Not detected Salmonella (PCR) Not detected 03/07/24 05:50 WBC 12.3 H RBC 3.77 L Hgb 11.9 L Hct 34.1 L MCV 90.4 MCH 31.7 MCHC 35.1 RDW 12.3 Plt Count 448 H Neut % (Auto) 74.1 Lymph % (Auto) 15.0 L [place] % (Auto) 9.4 Eos % (Auto) 1.0 L Baso % (Auto) 0.5 Neut # (Auto) 9100 H Lymph # (Auto) 1900 [place] # (Auto) 1200 H Eos # (Auto) 100 Baso # (Auto) 100 Sodium 132 L Potassium 2.9 L Chloride 102 Carbon Dioxide 22 BUN 6 L Creatinine 0.49 L Estimated GFR > 60 BUN/Creatinine Ratio 12.2 Glucose 108 H Lactate Calcium 8.2 L Magnesium Total Bilirubin AST ALT Alkaline Phosphatase Total Protein Albumin Globulin Albumin/Globulin Ratio Lipase Urine Color Urine Appearance Urine pH Ur Specific [place] Urine Protein Urine Glucose (UA) Urine Ketones Urine Occult Blood Urine Nitrate Urine Bilirubin Urine Urobilinogen Ur Leukocyte Esterase Urine RBC Urine WBC Ur Squamous Epith Cells Urine Bacteria Ur Culture Indicated? Vol Urine Centrifuged Urine Test Stl C. cayetanensis PCR Stool Rotavirus (PCR) Stool Adenovirus (PCR) Stool Astrovirus (PCR) Stool Cryptosporidium PCR Stl E.coli Shiga Tox PCR St Sh/Enteroin Ecoli PCR Stl Enterotoxigenic E PCR Stool EPEC (PCR) Stl E. histolytica PCR Stool Giardia Lamblia PCR Stool Sapovirus (PCR) Stl P. shigelloides PCR St Y.enterocolitica PCR Stool Vibrio (PCR) Stl Vibrio cholerae PCR Stl Enteroaggr Ecoli PCR Stl Norovirus GI/GII PCR Campylobacter (PCR) C. difficile Tox (PCR) Salmonella (PCR) [facility] Medical History Asthma (~2019) History of drug use Borderline personality disorder (~2017) Depression (~2004) Anxiety (~2004) Migraine UTI (urinary tract infection) Hyperemesis gravidarum Susceptible to varicella (non-immune), currently Size of fetus inconsistent with dates in third trimester Poor weight gain of Surgical History No history of previous surgery Family History Mother Mental health problem Sister Mental health problem Social History marital status: unmarried,living together (engaged) number of children: 0 household members: significant other and children lives independently: Yes housing: apartment pets and animals: Yes (Cat - aware of toxoplasmosis) education level: high school (GED) occupational status: unemployed current occupational exposures/hazards: No special isabella needs: No seatbelt use: always water heater temp set < 120 deg: Yes (will check) working smoke detector in home: Yes fire extinguisher in home: No (will get) carbon monox detector in home: Yes firearms in home: Yes firearms unloaded and locked: Yes do you feel safe at home: Yes Smoking Status: Former smoker Tobacco: How many years used: 5 Smokeless tobacco user: other (vape since 2020) quit status: considering quitting second hand exposure: Yes (occas) alcohol intake: former substance use type: former substance user and marijuana (cutting back) during the past year weight has: remained stable well-balanced diet: about half the time (poor appetite, uses Maijuana) daily servings fruits/ve-1 caffeine: No (limit to 200mg a day) 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 Discharge home with zofran to take as needed. Follow up with PCP as previously scheduled. Discharge orders & Medications Prescriptions: New ondansetron 4 mg tablet,disintegrating 4 mg PO Q8H PRN (Reason: nausea and vomiting) 30 Days Qty: 30 0RF Continued lidocaine HCl 4 % (40 mg/mL) solution 1 applic mucous membrane TID PRN (Reason: pain) Qty: 50 0RF Rx Instructions: Swish and spit metoclopramide HCl [Reglan] 10 mg tablet 10 mg PO Q6H PRN (Reason: nausea and vomiting) Qty: 20 0RF nitrofurantoin monohyd/m-cryst [Macrobid] 100 mg capsule 100 mg PO Q12H 7 Days Qty: 14 0RF Rx Instructions: must administer with a meal/food promethazine 25 mg suppository 25 mg MT Q6H PRN (Reason: nausea and vomiting) Qty: 12 0RF Follow up/Referrals: Dar Salomon MD [Primary Care Provider] - Diet/Activity/Treatments Diet: Diet as Tolerated and Regular Activity: As tolerated Visit Report/Discharge Packet Instructions: DI for Cyclic Vomiting Syndrome-Adult Stand Alone Forms: Patient Portal/API, Stroke Signs & Symptoms Discharge Data Primary Care Provider: Dar Salomon Attending Provider: Aleksey Auguste Admit Date/Time: 03/06/24 13:11 Quality VTE Deep Vein Thrombosis/Pulmonary Embolism Present on Admission: No
[2024-03-07] MEDS: POTASSIUM CHLORIDE 20 MEQ TAB 40 MEQ PO (09:41)
--- NOTE | 2024-03-07 10:15 | PC.NURSE ---
D/c information reviewed with Pt. Discussed importance of hydration and avoiding known triggers of N/V. Pt agreeable to d/c today, and confirmed that she had all of her belongings. IV removed. Pt exited via w/c with [employer]ESSIONAL to private vehicle driven by friend.
--- NOTE | 2024-03-07 10:45 | CM.DANOTE ---
Discharge Planning/Care Management CM Discharge Assessment Start: 03/07/24 10:40 Shanel: Status: Active Protocol: Document 03/07/24 10:40 KISHOR (Rec: 03/07/24 10:45 KISHOR [id number]) Discharge Planning Assessment Assigned Trade Show Coordinator YAMILETH John/Assigned Designee Name AIDA Mari Contact Information [phone] Advance Directives? No History Provided By Patient,Medical Record Prior Living Arrangements Apartment/Condo Household Members significant other,children Type of transporation used prior to Drives own vehicle admit Independent with ADL's Yes Is patient alert and oriented? Yes Barriers to Discharge No Comment Patient admitted with intractable N/V which has resolved, patient has been discharged this morning, home w/recommendation for close outpatient follow up. Patient lives with SO and 2 yo, hx includes Borderline personality disorder, depression, anxiety and hx of drug abuse in remission. No needs identified from this CM team for current admission. Discharge Plan Home Transportation Arrangement SO Referrals Initiated None needed
== END 2024-03-07 10:18 | disposition home or self-care (01) ==
LOC: ED 12:03 → AC 13:12
PROVIDERS: Admitting Provider Hospitalist; Emergency Provider Emergency Medicine; PCP Family Medicine; Visit Provider Hospitalist
DX: R10.9 Unspecified abdominal pain (principal); R11.2 Nausea with vomiting, unspecified; R19.7 Diarrhea, unspecified; E86.0 Dehydration; E86.9 Volume depletion, unspecified; D72.829 Elevated white blood cell count, unspecified
CPT/HCPCS: 36415; 80048; 80053; 81001; 81025; 83605; 83690; 83735; 85025; 87507; 96361; 96374; 96375; 96376; 99284; G0378; J1200; J1790; J2405

== ENCOUNTER 2024-06-05 11:28 | Emergency (ER) | payer OTHER, SELFPAY ==
[2024-03-06 15:22] VITALS: BMI 17.6
[2024-06-05 11:39] VITALS: BP 132/94; PULSE 75; RESP 16; TEMP 36.6; O2SAT 100; BMI 18.5
== END 2024-06-05 12:36 | disposition left against medical advice (07) ==
PROVIDERS: Emergency Provider Emergency Medicine; PCP Family Medicine
DX: R11.10 Vomiting, unspecified (principal)
CPT/HCPCS: 99281

== ENCOUNTER 2024-06-06 06:41 | Emergency (ER) | payer OTHER, SELFPAY ==
[2024-03-06 15:22] VITALS: BMI 17.6
[2024-06-06 06:47] VITALS: BP 148/85; PULSE 75; O2SAT 100
[2024-06-06 06:49] VITALS: BP 148/85; PULSE 71; RESP 18; TEMP 36.5; O2SAT 100; BMI 16.6
[2024-06-06 07:27] LABS: Hematocrit 43.6 % (36-46); Hemoglobin 14.6 g/dL (12.0-16.0); Mean Corpuscular HGB Conc 33.6 % (30-36); Mean Corpuscular Hemoglobin 29.9 PG (26-34); Mean Corpuscular Volume 88.9 fL (80-100); Platelet Count 592 X10^3/uL (150-400); Red Cell Distribution Width 13.2 % (11.6-14.8); White Blood Cell Count 19.6 X10^3/uL (4.5-11.0)
[2024-06-06 07:28] LABS: Add Manual Diff / Slide Review YES
--- NOTE | 2024-06-06 07:33 | PC.NURSE ---
Pt repeatedly told by RN and provider she could not take a shower. Pt said she needed to go to the bathroom, shower was noted to be running in bathroom. Pt asked to return to her room.
[2024-06-06 07:37] LABS: Neutrophils Absolute Manual 18620 /uL (3000-5900); RBC Morphology Normal Morphology; Total Cells Counted 100
--- NOTE | 2024-06-06 07:41 | ED.NAVMDI ---
HPI - Nausea/Vomiting/Diarrhea General Chief complaint: Nausea/Vomiting/Diarrhea Stated complaint: N/V x4 days Time Seen by Provider: 06/06/24 06:48 Source: patient Mode of arrival: Ambulatory History of Present Illness HPI Narrative: Patient is a 23-year-old female with history of cyclic vomiting marijuana use presenting today with nausea vomiting. She was here yesterday but left without being seen. Called EMS today had a L of fluids and Zofran with EMS. Immediately got to the emergency department and went to the shower. Was told that you can not take showers in the emergency department. She did not want to wait for her blood work the only place she is comfortable is in the shower. She does not want anymore medications she just wants to leave and go to her shower at home Related Data Previous Rx's Medication Instructions Recorded lidocaine HCl 4 % (40 mg/mL) 1 applic mucous membrane TID PRN 08/04/23 mucosal solution pain #50 mL metoclopramide HCl 10 mg tablet 10 mg PO Q6H PRN nausea and 03/03/24 (Reglan) vomiting #20 tabs promethazine 25 mg rectal 25 mg OH Q6H PRN nausea and 03/04/24 suppository vomiting #12 ea Allergies Allergy/AdvReac Type Severity Reaction Status Date / Time amoxicillin Allergy Intermediate Verified 03/06/24 11:48 Penicillins Allergy Intermediate Verified 03/06/24 11:48 cephalexin Allergy Unknown Verified 03/06/24 11:48 Patient History Medical History Asthma (~2019) History of drug use Borderline personality disorder (~2017) Depression (~2005) Anxiety (~2005) Migraine UTI (urinary tract infection) Hyperemesis gravidarum Susceptible to varicella (non-immune), currently Size of fetus inconsistent with dates in third trimester Poor weight gain of Surgical History No history of previous surgery Family History Mother Mental health problem Sister Mental health problem Social History marital status: unmarried,living together (engaged) number of children: 0 household members: significant other and children lives independently: Yes housing: apartment pets and animals: Yes (Cat - aware of toxoplasmosis) education level: high school (GED) occupational status: unemployed current occupational exposures/hazards: No special isabella needs: No seatbelt use: always water heater temp set < 120 deg: Yes (will check) working smoke detector in home: Yes fire extinguisher in home: No (will get) carbon monox detector in home: Yes firearms in home: Yes firearms unloaded and locked: Yes do you feel safe at home: Yes Smoking Status: Former smoker Tobacco: How many years used: 5 Smokeless tobacco user: other (vape since 2020) quit status: considering quitting second hand exposure: Yes (occas) alcohol intake: former substance use type: former substance user and marijuana (cutting back) during the past year weight has: remained stable well-balanced diet: about half the time (poor appetite, uses Maijuana) daily servings fruits/ve-1 caffeine: No (limit to 200mg a day) 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 Status: Former smoker alcohol intake frequency: a few times a week Exam Initial Vital Signs Initial Vital Signs: Vital Signs Temperature 97.7 F 06/06/24 06:49 Pulse Rate 71 06/06/24 06:49 Respiratory Rate 18 06/06/24 06:49 Blood Pressure 148/85 H 06/06/24 06:49 Pulse Oximetry 100 06/06/24 06:49 Oxygen Delivery Method Room Air 06/06/24 06:49 GENERAL: Alert thin well-appearing 23-year-old female CARDIOVASCULAR: peripheral pulses in tact, cap refill <2 sec RESPIRATORY: No respiratory distress, speaks in full sentences without difficulty EXTREMITIES: Normal range of motion, no clubbing or edema. Neurovascularly intact NEUROLOGICAL: Cranial nerves II through XII grossly intact. Normal gait and speech. SKIN: Warm, dry, no petechiae, no rashes or lesions. Course Orders Ordered: ED Orders 06/06/24 06:49 Urine Drug Screen, Rapid Stat 06/06/24 07:10 CBC Auto Diff [Complete Blood Count AUTO DIFF] Stat CMP [Comprehensive Metabolic Panel] Stat Lipase Stat Discontinued Medications Droperidol (Droperidol 5 Mg/2 Ml Vial) 2.5 mg IV NOW ONE Stop: 06/06/24 06:50 Vital Signs Vital signs: Vital Signs - 8 hr 06/06/24 06:49 Temperature 97.7 F Pulse Rate 71 Respiratory Rate 18 Blood Pressure 148/85 H Pulse Oximetry 100 Oxygen Delivery Method Room Air MDM - Nausea/Vomiting/Diarrhea Lab Data 06/06/24 07:10 06/06/24 07:10 Labs: Lab Results 06/06/24 06/06/24 Range/Units 07:10 07:25 WBC 19.6 H (4.5-11.0) X10^3/uL RBC 4.90 (4.0-5.2) X10^6/uL Hgb 14.6 (12.0-16.0) g/dL Hct 43.6 (36-46) % MCV 88.9 (80-100) fL MCH 29.9 (26-34) PG MCHC 33.6 (30-36) % RDW 13.2 (11.6-14.8) % Plt Count 592 H (150-400) X10^3/uL Neut % (Auto) Not Reportable Lymph % (Auto) Not Reportable [place] % (Auto) Not Reportable Eos % (Auto) Not Reportable Baso % (Auto) Not Reportable Lymph # (Auto) Not Reportable [place] # (Auto) Not Reportable Baso # (Auto) Not Reportable Total Counted 100 Seg Neutrophils % 95.0 H (38-70) % Lymphocytes % (Manual) 1.0 L (25-45) % Atypical Lymphs % 1.0 H ( - 0) % Monocytes % (Manual) 3.0 (2-11) % Neutrophils # (Manual) 97551 H (6252-0553) /uL RBC Morphology Normal morphology U Opiates 300ng/mL cut Negative (Negative) Ur Oxycodone Screen Negative (Negative) Urine Methadone Screen Negative (Negative) Ur Barbiturates Screen Negative (Negative) U Tricyclic Antidepress Negative (Negative) Ur Phencyclidine Scrn Negative (Negative) Ur Amphetamines Screen Negative (Negative) U Methamphetamines Scrn Negative (Negative) Ur MDMA Scrn (Ecstasy) Negative (Negative) U Benzodiazepines Scrn Negative (Negative) Urine Cocaine Screen Negative (Negative) U Marijuana (THC) Screen Positive H (Negative) Urine pH Normal (Normal) Urine Specific [place] Normal (Normal) Ur Creatinine Normal (Normal) Point of Care Testing Test Results Negative Urine Dip Bedside Urine Glucose Negative Bedside Urine Bilirubin - Negative Bedside Urine Ketone + 15 Urine Specific [place] 1.025 Bedside Urine Occult Blood +++ Bedside Urine pH 6.0 Bedside Urine Protein +++ 300 Bedside Urine Urobilinogen - Negative Bedside Urine Nitrite - Negative Bedside Urine Leukocytes - Negative Esterase MDM Narrative Medical decision making narrative: Patient wanting to leave and go home after being told she can not shower in the emergency department. WBC does show leukocytosis 19 chemistry panel hemolyzed. Encouraged her to stay and have it redrawn however she would like to go home. The patient is clinically sober, free from distracting injury, appears to have intact insight, judgment and reason. Does not meet criteria for involuntary hospitalization. Patient has the capacity to make decisions. The patient is also not under any duress to leave the hospital. In this scenario, it would be battery to subject the patient to treatment against his/her will. I have voiced my concerns for the patient's health given that a full evaluation and treatment had not occurred. I have discussed the need for continued evaluation to determine if there symptoms are caused by a condition that present risk of or morbidity. Risk including but not limited to , permanent disability, prolonged hospitalization, prolonged illness, were discussed. I tried offering alternative options in hopes that the patient might be amenable to partial evaluation and treatment which would be medically beneficial to the patient, though the patient declined my options and insisted on leaving. Because I have been unable to convince the patient to stay I answered all of their questions about the condition and ask them to return to the ED as soon as possible to complete their evaluation, especially if their symptoms worsen or do not improve. I emphasized that leaving against medical advice did not preclude returning here for further evaluation. I asked the patient to return if they change their mind about the further evaluation and treatment. I strongly encouraged the patient to return to this emergency department or any emergency department at any time, particularly with worsening symptoms. Discharge Plan Departure Patient Disposition: Left Against Medical Advice Clinical Impression: Cyclic vomiting syndrome Instructions: Nausea and Vomiting-Adult Activity Restrictions/Additional Instructions: Leaving against medical advice We do not yet have all of your blood work back Increase fluids as tolerated You may return to the emergency department at any time Prescriptions: No Action lidocaine HCl 4 % (40 mg/mL) solution 1 applic mucous membrane TID PRN (Reason: pain) Qty: 50 0RF Rx Instructions: Swish and spit metoclopramide HCl [Reglan] 10 mg tablet 10 mg PO Q6H PRN (Reason: nausea and vomiting) Qty: 20 0RF promethazine 25 mg suppository 25 mg [place] Q6H PRN (Reason: nausea and vomiting) Qty: 12 0RF Referrals: Dar Salomon MD [Primary Care Provider] - Stand Alone Forms: Patient Portal/API, Against Medical Advice
[2024-06-06 07:42] LABS: Ur Creatinine Normal (Normal); Ur Specific Gravity Normal (Normal); Urine pH Normal (Normal)
[2024-06-06 07:43] LABS: UR Morphine/Opiate cutoff 300 Negative (Negative); Urine Amphetamines Negative (Negative); Urine Barbiturates Negative (Negative); Urine Benzodiazepines Negative (Negative); Urine Cocaine Negative (Negative); Urine MDMA Negative (Negative); Urine Methadone Negative (Negative); Urine Methamphetamines Negative (Negative); Urine Oxycodone Negative (Negative); Urine Phencyclidine Negative (Negative); Urine Tetrahydrocannabinol Positive (Negative); Urine Tricyclic Antidepressant Negative (Negative)
--- NOTE | 2024-06-06 07:47 | PC.NURSE ---
Pt left AMA, pt states she needs to take a long shower in order to feel comfortable. Dr Garcia informed, Spoke with pt. Called lab and not resulted due to hemolization. Pt informed of need for a redraw. Pt unwilling to wait but states she will return if not improved or feeling worse. AMA form signed.
== END 2024-06-06 07:47 | disposition left against medical advice (07) ==
PROVIDERS: Emergency Medicine; Emergency Provider Emergency Medicine; PCP Family Medicine
DX: R11.15 Cyclical vomiting syndrome unrelated to migraine (principal); Z53.29 Procedure and treatment not carried out because of patient's decision for other reasons
CPT/HCPCS: 80305; 81003; 81025; 85007; 85025; 99282; 99283

== ENCOUNTER 2024-06-16 09:38 | Emergency (ER) | payer OTHER, SELFPAY ==
[2024-03-06 15:22] VITALS: BMI 17.6
[2024-06-16 09:49] VITALS: BP 160/98; PULSE 85; RESP 20; TEMP 36.6; O2SAT 100; BMI 16.2
--- NOTE | 2024-06-16 09:54 | PC.NURSE ---
No room at this time, patient asking to take a hot shower. Not option on ER at this time. Patient return to lobby
[2024-06-16] MEDS: ONDANSETRON 4 MG ODT PO (10:45)
[2024-06-16 11:03] LABS: Alanine Aminotransferase 25 IU/L (<35); Albumin 5.1 g/dL (3.5-5.0); Alkaline Phosphatase 54 U/L (38-126); Aspartate Aminotransferase 31 IU/L (14-36); BUN Creatinine Ratio 29.1 (6-22); Bilirubin Total 1.2 mg/dL (0.2-1.3); Blood Urea Nitrogen 16 mg/dL (7-17); Carbon Dioxide 20 mmol/L (22-32); Chloride 105 mmol/L (98-107); Estimated Glomerular Filt Rate > 60 mL/min (>60); Globulin 2.5 g/dL (1.7-4.1); Glucose 139 mg/dL (70-100); HEMOLYSIS < 15 (0-50); Lipase 44 U/L (23-300); Potassium 3.7 mmol/L (3.4-5.1); Sodium 135 mmol/L (137-145); Total Protein 7.6 g/dL (6.3-8.2)
[2024-06-16 11:08] LABS: Add Manual Diff / Slide Review NO; Basophils Absolute Auto 100 /uL (0-100); Basophils Percent Auto 0.4 % (0-2); Eosinophils Absolute Auto 0 /uL (0-450); Eosinophils Percent Auto 0.1 % (2-4); Hematocrit 39.4 % (36-46); Hemoglobin 13.7 g/dL (12.0-16.0); Lymphocytes Absolute Auto 1200 /uL (1100-4500); Lymphocytes Percent Auto 6.7 % (25-40); Mean Corpuscular HGB Conc 34.6 % (30-36); Mean Corpuscular Hemoglobin 30.4 PG (26-34); Mean Corpuscular Volume 87.9 fL (80-100); Monocytes Absolute Auto 900 /uL (0-900); Neutrophils Absolute Auto 15600 /uL (1500-7000); Neutrophils Percent Auto 87.8 % (50-75); Platelet Count 696 X10^3/uL (150-400); Red Blood Cell Count 4.49 X10^6/uL (4.0-5.2); Red Cell Distribution Width 12.8 % (11.6-14.8); White Blood Cell Count 17.7 X10^3/uL (4.5-11.0)
== END 2024-06-16 11:47 | disposition left against medical advice (07) ==
PROVIDERS: Emergency Provider Emergency Medicine; PCP Family Medicine
DX: R11.10 Vomiting, unspecified (principal); R10.9 Unspecified abdominal pain
CPT/HCPCS: 36415; 80053; 83690; 85025; 99283

== ENCOUNTER 2024-11-08 20:13 | Emergency (ER) | payer OTHER, SELFPAY ==
[2024-03-06 15:22] VITALS: BMI 17.6
[2024-11-08 20:25] VITALS: BP 149/84; PULSE 90; RESP 20; TEMP 37.1; O2SAT 99; BMI 20.5
--- NOTE | 2024-11-08 20:33 | EKG_ITS ---
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
--- NOTE | 2024-11-08 20:39 | ED_ITS ---
HPI - Nausea/Vomiting/Diarrhea General Chief complaint: Nausea/Vomiting/Diarrhea Stated complaint: NV x 4days Time Seen by Provider: 11/08/24 20:39 Source: patient and EMS Mode of arrival: EMS History of Present Illness HPI Narrative: 24-year-old female with no reported medical issues states she does have a history of hyperemesis cannabis. States she thinks that is what is going on today. She had quit using marijuana for some time but started using occasionally develop nausea and vomiting for the past 4 days which she has not been able to stop. She states she has not been able to keep anything down. Patient notes the only thing that is seems to be helpful are very hot showers. She was she has not had a bowel movement bent up 4 days but has been passing gas. She states this feels very similar. She denies chest pain but has felt a little bit short of breath. No fevers. Notes she feels like she was decreased urine output but no dysuria urgency or frequency. She denies any medical issues otherwise, no prior surgeries. States allergies to amoxicillin and penicillin. No tobacco, no regular alcohol, she denies any other recreational drugs and marijuana. She notes they are small chance of , she states her last menstrual period has a proximally a month ago. She does have a primary care physician, Dr. Knapp. Related Data Previous Rx's ?Medication ?Instructions ?Recorded lidocaine HCl 4 % (40 mg/mL) 1 applic mucous membrane TID PRN 08/04/23 mucosal solution pain #50 mL metoclopramide HCl 10 mg tablet 10 mg PO Q6H PRN nause a and 03/03/24 (Reglan) vomiting #20 tabs promethazine 25 mg rectal 25 mg NV Q6H PRN nausea and 03/04/24 suppository vomiting #12 ea Allergies Allergy/AdvReac Type Severity Reaction Status Date / Time amoxicillin Allergy Intermediate Verified 11/08/24 20:25 Penicillins Allergy Intermediate Verified 11/08/24 20:25 cephalexin Allergy Unknown Verified 11/08/24 20:25 Review of Systems Review of Systems ROS Unobtainable: All systems reviewed & are unremarkable except as noted in HPI and below Patient History Medical History Asthma (~2019) History of drug use Borderline personality disorder (~2017) Depression (~2004) Anxiety (~2004) Migraine UTI (urinary tract infection) Hyperemesis gravidarum Susceptible to varicella (non-immune), currently Size of fetus inconsistent with dates in third trimester Poor weight gain of Surgical History No history of previous surgery Family History Mother Mental health problem Sister Mental health problem Social History marital status: unmarried,living together (engaged) number of children: 0 household members: significant other and children lives independently: Yes housing: apartment pets and animals: Yes (Cat - aware of toxoplasmosis) education level: high school (G[employer]) occupational status: unemployed current occupational exposures/hazards: No special isabella needs: No seatbelt use: always water heater temp set < 120 deg: Yes (will check) working smoke detector in home: Yes fire extinguisher in home: No (will get) carbon monox detector in home: Yes firearms in home: Yes firearms unloaded and locked: Yes do you feel safe at home: Yes Smoking Status: Current some day smoker Tobacco: How many years used: 5 Smokeless tobacco user: other (vape since 2020) quit status: considering quitting second hand exposure: Yes (occas) alcohol intake: former substance use type: former substance user and marijuana (cutting back) during the past year weight has: remained stable well-balanced diet: about half the time (poor appetite, uses Maijuana) daily servings fruits/ve-1 caffeine: No (limit to 200mg a day) 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 Status: Current some day smoker alcohol intake frequency: a few times a week Exam Initial Vital Signs Initial Vital Signs: Vital Signs Temperature 98.7 F 11/08/24 20:25 Pulse Rate 90 11/08/24 20:25 Respiratory Rate 20 11/08/24 20:25 Blood Pressure 149/84 H 11/08/24 20:25 Pulse Oximetry 99 11/08/24 20:25 Oxygen Delivery Method Room Air 11/08/24 20:25 Course Orders Ordered: ED Orders 11/08/24 20:21 Urine Culture Stat Urine Microscopic Stat Urine Microscopic Stat 11/08/24 20:25 Complete Blood Count AUTO DIFF Stat Comprehensive Metabolic Panel Stat HCG Quantitative /Beta subunit Stat Lactate (Lactic Acid) Stat Lipase Stat MAG [Magnesium] Stat Procalcitonin Stat 11/08/24 20:33 EKG-12 Lead Stat 11/08/24 20:45 US OB <= 14 weeks fetus Stat 11/08/24 21:09 US abdomen limited Stat 11/08/24 21:33 Blood Culture Stat Discontinued Medications Haloperidol (Haloperidol 5 Mg/Ml Vial) 5 mg IV NOW ONE Stop: 11/08/24 20:46 Last Admin: 11/08/24 21:03 Dose: 5 mg Documented By: Sodium Chloride (Normal Saline 0.9%) 1,000 mls @ 1,000 mls/hr IV BOLUS ONE Stop: 11/08/24 21:33 Last Infusion: 11/08/24 22:15 Dose: Infused Documented By: Admin: 11/08/24 20:44 Dose: 1,000 mls/hr Documented By: AISHA Sodium Chloride (Normal Saline 0.9%) 1,000 mls @ 1,000 mls/hr IV BOLUS ONE Stop: 11/08/24 22:08 Last Infusion: 11/08/24 23:14 Dose: Infused Documented By: Admin: 11/08/24 22:15 Dose: 1,000 mls/hr Documented By: LILLI POTASSIUM CHLORIDE IN WATER (Potassium Cl 10 Meq/100 Ml Asha) 10 meq in 100 mls @ 100 mls/hr IV Q1H DELORIS Stop: 11/09/24 01:14 Last Infusion: 11/08/24 23:14 Dose: Infused Documented By: Admin: 11/08/24 22:35 Dose: 100 mls/hr Documented By: Infusion: 11/08/24 22:20 Dose: Infused Documented By: Admin: 11/08/24 21:20 Dose: 100 mls/hr Documented By: Vital Signs Vital signs: Vital Signs - 8 hr 11/08/24 20:25 11/08/24 21:06 11/08/24 21:07 Temperature 98.7 F Pulse Rate 90 84 82 Respiratory Rate 20 16 Blood Pressure 149/84 H Pulse Oximetry 99 100 100 Oxygen Delivery Method Room Air 11/08/24 21:07 11/08/24 21:30 Temperature Pulse Rate 85 Respiratory Rate 24 Blood Pressure 135/75 Pulse Oximetry 100 Oxygen Delivery Method MDM - Nausea/Vomiting/Diarrhea Lab Data 11/08/24 20:25 11/08/24 20:25 Labs: Lab Results 11/08/24 11/08/24 11/08/24 Range/Units 20:21 20:21 20:21 WBC (4.5-11.0) X10^3/uL RBC (4.0-5.2) X10^6/uL Hgb (12.0-16.0) g/dL Hct (36-46) % MCV (80-100) fL MCH (26-34) PG MCHC (30-36) % RDW (11.6-14.8) % Plt Count (150-400) X10^3/uL Neut % (Auto) Lymph % (Auto) [place] % (Auto) Eos % (Auto) Baso % (Auto) Lymph # (Auto) [place] # (Auto) Baso # (Auto) Total Counted Seg Neutrophils % (38-70) % Lymphocytes % (Manual) (25-45) % Monocytes % (Manual) (2-11) % Neutrophils # (Manual) (1444-9951) /uL RBC Morphology Sodium (137-145) mmol/L Potassium (3.4-5.1) mmol/L Chloride (98-107) mmol/L Carbon Dioxide (22-32) mmol/L BUN (7-17) mg/dL Creatinine (0.52-1.04) mg/dL Estimated GFR (>60) mL/min BUN/Creatinine Ratio (6-22) Glucose (70-99) mg/dL Lactate (0.7-2.1) mmol/L Calcium (8.4-10.2) mg/dL Magnesium (1.6-2.3) mg/dL Total Bilirubin (0.2-1.3) mg/dL AST (14-36) IU/L ALT (<35) IU/L Alkaline Phosphatase (38-126) U/L Total Protein (6.3-8.2) g/dL Albumin (3.5-5.0) g/dL Globulin (1.7-4.1) g/dL Albumin/Globulin Ratio (1.0-2.8) Lipase (23-300) U/L Procalcitonin (<0.5) ng/mL HCG, Quant mIU/mL Urine RBC 1-5/hpf None seen (0-5/HPF) Urine WBC 1-5/hpf None seen (0-5/HPF) Ur Squamous Epith Cells 1-5 /hpf (0-5/HPF) Ur Transition Epith Cell (0-5/HPF) Amorphous Sediment Urine Bacteria (None) Ur Culture Indicated? Vol Urine Centrifuged 11/08/24 11/08/24 11/08/24 Range/Units 20:21 20:21 20:21 WBC (4.5-11.0) X10^3/uL RBC (4.0-5.2) X10^6/uL Hgb (12.0-16.0) g/dL Hct (36-46) % MCV (80-100) fL MCH (26-34) PG MCHC (30-36) % RDW (11.6-14.8) % Plt Count (150-400) X10^3/uL Neut % (Auto) Lymph % (Auto) [place] % (Auto) Eos % (Auto) Baso % (Auto) Lymph # (Auto) [place] # (Auto) Baso # (Auto) Total Counted Seg Neutrophils % (38-70) % Lymphocytes % (Manual) (25-45) % Monocytes % (Manual) (2-11) % Neutrophils # (Manual) (1808-4376) /uL RBC Morphology Sodium (137-145) mmol/L Potassium (3.4-5.1) mmol/L Chloride (98-107) mmol/L Carbon Dioxide (22-32) mmol/L BUN (7-17) mg/dL Creatinine (0.52-1.04) mg/dL Estimated GFR (>60) mL/min BUN/Creatinine Ratio (6-22) Glucose (70-99) mg/dL Lactate (0.7-2.1) mmol/L Calcium (8.4-10.2) mg/dL Magnesium (1.6-2.3) mg/dL Total Bilirubin (0.2-1.3) mg/dL AST (14-36) IU/L ALT (<35) IU/L Alkaline Phosphatase (38-126) U/L Total Protein (6.3-8.2) g/dL Albumin (3.5-5.0) g/dL Globulin (1.7-4.1) g/dL Albumin/Globulin Ratio (1.0-2.8) Lipase (23-300) U/L Procalcitonin (<0.5) ng/mL HCG, Quant mIU/mL Urine RBC (0-5/HPF) Urine WBC (0-5/HPF) Ur Squamous Epith Cells 1-5 /hpf (0-5/HPF) Ur Transition Epith Cell 1-5/hpf (0-5/HPF) Amorphous Sediment 1+ Urine Bacteria None seen None seen (None) Ur Culture Indicated? Cult not indicated Cult not indicated Vol Urine Centrifuged 10ml (spun) 11/08/24 11/08/24 11/08/24 Range/Units 20:21 20:25 22:45 WBC 25.1 H (4.5-11.0) X10^3/uL RBC 5.01 (4.0-5.2) X10^6/uL Hgb 15.2 (12.0-16.0) g/dL Hct 44.7 (36-46) % MCV 89.3 (80-100) fL MCH 30.3 (26-34) PG MCHC 34.0 (30-36) % RDW 12.8 (11.6-14.8) % Plt Count 638 H (150-400) X10^3/uL Neut % (Auto) Not Reportable Lymph % (Auto) Not Reportable [place] % (Auto) Not Reportable Eos % (Auto) Not Reportable Baso % (Auto) Not Reportable Lymph # (Auto) Not Reportable [place] # (Auto) Not Reportable Baso # (Auto) Not Reportable Total Counted 100 Seg Neutrophils % 77.0 H (38-70) % Lymphocytes % (Manual) 12.0 L (25-45) % Monocytes % (Manual) 11.0 (2-11) % Neutrophils # (Manual) 06268 H (5665-2835) /uL RBC Morphology Normal morphology Sodium 129 L (137-145) mmol/L Potassium 2.9 L (3.4-5.1) mmol/L Chloride 87 L (98-107) mmol/L Carbon Dioxide 24 (22-32) mmol/L BUN 32 H (7-17) mg/dL Creatinine 0.81 (0.52-1.04) mg/dL Estimated GFR > 60 (>60) mL/min BUN/Creatinine Ratio 39.5 H (6-22) Glucose 125 H (70-99) mg/dL Lactate 5.8 H* 0.9 (0.7-2.1) mmol/L Calcium 9.3 (8.4-10.2) mg/dL Magnesium 2.1 (1.6-2.3) mg/dL Total Bilirubin 2.1 H (0.2-1.3) mg/dL AST 62 H (14-36) IU/L ALT 46 H (<35) IU/L Alkaline Phosphatase 64 (38-126) U/L Total Protein 8.2 (6.3-8.2) g/dL Albumin 5.1 H (3.5-5.0) g/dL Globulin 3.1 (1.7-4.1) g/dL Albumin/Globulin Ratio 1.6 (1.0-2.8) Lipase 45 (23-300) U/L Procalcitonin 0.058 (<0.5) ng/mL HCG, Quant 688991 mIU/mL Urine RBC (0-5/HPF) Urine WBC (0-5/HPF) Ur Squamous Epith Cells (0-5/HPF) Ur Transition Epith Cell (0-5/HPF) Amorphous Sediment Urine Bacteria (None) Ur Culture Indicated? Vol Urine Centrifuged 10ml (spun) Point of Care Testing Test Results Positive Urine Dip Bedside Urine Glucose Negative Bedside Urine Bilirubin - Negative Bedside Urine Ketone - Negative Urine Specific [place] 1.010 Bedside Urine Occult Blood - Negative Bedside Urine pH 8.0 Bedside Urine Protein +/- 15 Bedside Urine Urobilinogen 0.2 Bedside Urine Nitrite - Negative Bedside Urine Leukocytes - Negative Esterase ECG Data Attestation: I personally reviewed and interpreted this ECG as follows: Prior ECG tracings: available for review Interpretation: Patient has sinus rhythm with short NV, nonspecific T-wave changes patient has a rate of 78 NV 102 QRS 84 QTC of 476. Patient was prior from 03/02/2024 does have nonspecific change suspect patient may have electrolyte abnormality. MDM Narrative Medical decision making narrative: Point of care is positive, point of care has protein, negative for ketones. Patient was 1-5 red cells 1-5 white cells 1-5 squamous 1-5 transitional. EKG shows nonspecific change rate of 78 QRS 84 QTC of 476. Labs show white count of 25 patient has been persistently elevated, hemoglobin of 15.5 platelets are 638 also persistently elevated segmented neutrophils 77% neutrophils manual is 19,327. Chemistries show hyponatremia, hypokalemia with a sodium of 2.9 chloride 87, CO2 of 24, BUN of 32 creatinine 0.81, glucose is 125 lactate 5.8 Mag is 2.1 bilirubin is elevated at 2.1 AST 62 ALT is 46 with a lipase of 45 procalcitonin is negative at 0.058 quantitative hCG is 146,470. OB ultrasound less than 14 weeks, living intrauterine gestation at ultrasound age of 8 weeks and 1 day small perigestational hemorrhage. Corneal blink is 1.7 cm. Cardiac motion seen at rate of 169 beats per minute. Yolk sac present. Ultrasound age is 8 weeks and 1 day,. Gestational hemorrhage measuring 3.9 x 2.2 cm unremarkable adnexal structures. Right upper quadrant ultrasound trace gallbladder sludge/debris no discrete shadowing measurable stone. No sonographic Rutherford's sign. CBD is not dilated. Wall measures 2-3 mm not thickened. Patient had fluids, Haldol, potassium K rider. Patient was unaware of positive , her abdominal pain is likely related to hyperemesis cannabis but we will obtain OB ultrasound to rule out ectopic and hCG quantitative. Workup does not show an ectopic, patient was some sludge but no other changes of the gallbladder she was feeling significantly improved after medications. She was only had 2 bags if her potassium rider but does not wish to stay. Discussed risks with the patient's electrolyte abnormalities, EKG changes, elevated LFTs we would like to keep for observation. Patient expresses understanding she was had some ice chips here states she prefers to discharge. We will have patient sign Against Medical Advice discussed risks versus benefits she had family at bedside as well. Discussed concern for arrhythmias and with her electrolyte abnormalities. Patient's where she can return at any time. All questions answered. Discharge Plan Departure Patient Disposition: Left Against Medical Advice Clinical Impression: , Hypokalemia, Hyponatremia, Elevated liver enzymes, Nausea and vomiting Activity Restrictions/Additional Instructions: Your workup today does show proximally 8 weeks and 1 day by ultrasound, there is a small perigestational hemorrhage measuring 3.9 x 2.3 cm. Contact is included to follow up with sustainable products marketing manager alternative option is also [facility]. Your workup also shows multiple electrolyte abnormalities with low potassium as well as low sodium, your liver enzymes are also elevated. Your white blood cell count was quite elevated as well. We have not fully replaced her potassium this can cause arrhythmias to your heart and even I do not recommend that you leave at this time. You still have some labs currently pending. It is recommended that you stay for observation as you have elected to return home. You are welcome to return at any time. Please return if you have new or worsening symptoms, lightheadedness or passing out, new chest pain or shortness of breath, worsening abdominal back or flank pain, persistent vomiting or other new or concerning changes. Prescriptions: No Action lidocaine HCl 4 % (40 mg/mL) solution 1 applic mucous membrane TID PRN (Reason: pain) Qty: 50 0RF Rx Instructions: Swish and spit metoclopramide HCl [Reglan] 10 mg tablet 10 mg PO Q6H PRN (Reason: nausea and vomiting) Qty: 20 0RF promethazine 25 mg suppository 25 mg NV Q6H PRN (Reason: nausea and vomiting) Qty: 12 0RF Referrals: Dar Salomon MD [Primary Care Provider, Family Practice] Carin Ledesma MD [Physician, [facility] F[facility]RICATOR] Stand Alone Forms: Patient Portal/API, Against Med. Advice ([place])
[2024-11-08] MEDS: SODIUM CHLORIDE 0.9% 1,000 ML 1000 ML IV ×2 (20:44→22:15)
--- NOTE | 2024-11-08 20:45 | DI.US.S_ITS ---
PROCEDURE: US OB <= 14 WEEKS FETUS INDICATIONS: v/abd pain, + preg, hx hyperemesis cannibis OUTSIDE/PRIOR DATING DATA: Last menstrual period (LMP): Unknown First dating scan (date and location): Today. Estimated date of delivery (BERNARDA) from first dating scan: 06/19/2025. TECHNIQUE: Real-time scanning was performed of the fetus and maternal pelvic organs, with image documentation. COMPARISON: None FINDINGS: Snead-rump length is 1.7 cm. Cardiac motion is seen at a rate of 169 beats per minute. Yolk sac is present. Ultrasound age is 8 weeks and 1 day. Perigestational hemorrhage measures 3.9 x 2.3 cm. Unremarkable adnexal structures. IMPRESSION: Living intrauterine gestation at an ultrasound age of 8 weeks and 1 day. Small perigestational hemorrhage. Dictated by: Dominik Gar M.D. on 11/08/2024 at 22:40 Approved by: Dominik Gar M.D. on 11/08/2024 at 22:41
[2024-11-08 20:50] LABS: Hematocrit 44.7 % (36-46); Hemoglobin 15.2 g/dL (12.0-16.0); Mean Corpuscular Hemoglobin 30.3 PG (26-34); Mean Corpuscular Volume 89.3 fL (80-100); Platelet Count 638 X10^3/uL (150-400); Red Blood Cell Count 5.01 X10^6/uL (4.0-5.2); Red Cell Distribution Width 12.8 % (11.6-14.8); White Blood Cell Count 25.1 X10^3/uL (4.5-11.0)
[2024-11-08 20:52] LABS: Add Manual Diff / Slide Review YES
[2024-11-08 20:59] LABS: Urine Volume 10mL (spun)
[2024-11-08 21:00] LABS: Bacteria Urine None Seen; RBC Urine 1-5/HPF (0-5/HPF); WBC Urine 1-5/HPF (0-5/HPF)
[2024-11-08 21:01] LABS: Amorphous Sediment Urine 1+; Culture Indicated Urine Cult Not Indicated; Squamous Epithelial Cell Urine 1-5 /HPF (0-5/HPF); Transitional Epi Cells Urine 1-5/HPF (0-5/HPF)
[2024-11-08 21:01] LABS: Alanine Aminotransferase 46 IU/L (<35); Albumin 5.1 g/dL (3.5-5.0); Albumin Globulin Ratio 1.6 (1.0-2.8); Alkaline Phosphatase 64 U/L (38-126); Aspartate Aminotransferase 62 IU/L (14-36); BUN Creatinine Ratio 39.5 (6-22); Bilirubin Total 2.1 mg/dL (0.2-1.3); Blood Urea Nitrogen 32 mg/dL (7-17); Calcium 9.3 mg/dL (8.4-10.2); Carbon Dioxide 24 mmol/L (22-32); Chloride 87 mmol/L (98-107); Estimated Glomerular Filt Rate > 60 mL/min (>60); Globulin 3.1 g/dL (1.7-4.1); Glucose 125 mg/dL (70-99); HEMOLYSIS < 15 (0-50); Lipase 45 U/L (23-300); Potassium 2.9 mmol/L (3.4-5.1); Sodium 129 mmol/L (137-145); Total Protein 8.2 g/dL (6.3-8.2)
[2024-11-08] MEDS: HALOPERIDOL 5 MG/ML VIAL IV (21:03)
[2024-11-08 21:06] VITALS: PULSE 84; O2SAT 100
[2024-11-08 21:06] LABS: Lactate (Lactic Acid) 5.8 mmol/L (0.7-2.1)
[2024-11-08 21:07] VITALS: BP 135/75; PULSE 82; RESP 16; O2SAT 100
--- NOTE | 2024-11-08 21:09 | DI.US.S_ITS ---
PROCEDURE: US ABDOMEN LIMITED INDICATIONS: vomiting, abd pain TECHNIQUE: Real-time focused scanning was performed of the abdomen, with image documentation. COMPARISON: [facility], , US ABDOMEN LIMITED, 07/18/2021, 12:35. FINDINGS: Liver measures 14 cm. Trace gallbladder debris without a measurable shadowing stone. No sonographic Rutherford sign. Wall measures 2-3 mm, nonthickened. CBD is nondilated at 2-3 mm. No pathologic free fluid in the upper abdomen. IMPRESSION: Trace gallbladder sludge/debris. There is no discrete shadowing measurable stone. No sonographic Rutherford sign. CBD is nondilated. Dictated by: Dominik Gar M.D. on 11/08/2024 at 22:38 Approved by: Dominik Gar M.D. on 11/08/2024 at 22:39
[2024-11-08] MEDS: POTASSIUM CHLORIDE IN WATER 10 MEQ/100 ML PIGGYBACK 100 MEQ IV ×2 (21:20→22:35)
[2024-11-08 21:21] LABS: Neutrophils Absolute Manual 19327 /uL (3000-5900); Total Cells Counted 100
[2024-11-08 21:22] LABS: RBC Morphology Normal Morphology
[2024-11-08 21:30] VITALS: PULSE 85; RESP 24; O2SAT 100
[2024-11-08 21:40] LABS: Magnesium 2.1 mg/dL (1.6-2.3)
[2024-11-08 21:58] LABS: HCG Quantitative /Beta subunit 146470 mIU/mL; Procalcitonin 0.058 ng/mL (<0.5)
[2024-11-08 22:11] LABS: Reflexed Lactate in 2 Hours Y
[2024-11-08 22:59] LABS: Lactate 2HR (Lactic Acid Rflx) 0.9 mmol/L (0.7-2.1)
[2024-11-08 23:22] LABS: Bacteria Urine None Seen; Culture Indicated Urine Cult Not Indicated; RBC Urine None Seen (0-5/HPF); Squamous Epithelial Cell Urine 1-5 /HPF (0-5/HPF); Urine Volume 10mL (spun); WBC Urine None Seen (0-5/HPF)
== END 2024-11-08 23:14 | disposition left against medical advice (07) ==
PROVIDERS: Emergency Provider Emergency Medicine; PCP Family Medicine
DX: E87.6 Hypokalemia (principal); E87.1 Hypo-osmolality and hyponatremia; R11.2 Nausea with vomiting, unspecified; R74.8 Abnormal levels of other serum enzymes; Z33.1 Pregnant state, incidental
CPT/HCPCS: 76705; 76801; 80053; 81003; 81015; 81025; 83605; 83690; 83735; 84145; 84702; 85007; 85025; 87040; 87077; 87086; 93005; 96365; 96366; 96375; 99284; J1630

== ENCOUNTER 2025-02-13 00:07 | Emergency (ER) | payer OTHER, SELFPAY ==
[2024-03-06 15:22] VITALS: BMI 17.6
[2025-02-13 00:14] VITALS: BP 113/59; PULSE 81; RESP 18; TEMP 36.8; O2SAT 96; BMI 19.1
--- NOTE | 2025-02-13 00:56 | PC.NURSE ---
R upper arm PICC dressing changed per protocol. 0 cm external line. Insertion site with mild redness/swelling. No purulent drainage. No biopatch available in house; pt advised to follow up with PICC RN as scheduled tomorrow. Pt tolerated well, verbalized understanding.
== END 2025-02-13 01:30 | disposition left against medical advice (07) ==
PROVIDERS: Emergency Provider Emergency Medicine; PCP Family Medicine
DX: Z53.21 Procedure and treatment not carried out due to patient leaving prior to being seen by health care provider (principal)
CPT/HCPCS: 99281